=== PATIENT | female | born 1960 | race Caucasian/White ===

== ENCOUNTER 2018-01-18 20:29 | Inpatient (IN) | payer OTHER, SELFPAY ==
[2018-01-18] MEDS ORDERED: NA CHLORIDE 0.9% 3,000 ML ONE (20:51)
[2018-01-18 21:09] LABS: Absolute Lymphocytes (CBC) 1.3 K/uL (0.7-4.9); Absolute Monocytes 1.5 K/uL (0.1-1.3); Absolute Neutrophil 13.3 K/uL (1.8-8.0); Basophils % 0.2 % (0-1.3); Hematocrit 28.5 % (36.0-45.0); Lymphocytes % 8.2 % (15.3-44.8); MCH 25.4 pg (27.0-35.0); MCV 79.9 fL (80-100); MPV 8.2 fL (7.6-11.3); Monocytes % 9.3 % (3.3-12.3); RBC Red Blood Cell Count 3.57 M/uL (3.86-4.86)
[2018-01-18 21:18] LABS: Protime INR 1.16
[2018-01-18 21:20] LABS: Urine Blood TRACE (NEG); Urine Glucose NEGATIVE (NEG); Urine Protein 3+ (NEG); Urine Specific Gravity >1.030 (1.005-1.030)
[2018-01-18 21:25] LABS: ALT/SGPT 27 U/L (12-78); AST/SGOT 31 U/L (15-37); Albumin 3.2 g/dL (3.4-5.0); Alkaline Phosphatase 120 U/L (45-117); BUN Blood Urea Nitrogen 14 mg/dL (7-18); Bicarbonate 24 mmol/L (21-32); Bilirubin Direct 0.1 mg/dL (0-0.2); Bilirubin Total 0.4 mg/dL (0.2-1.0); Creatine Phosphokinase 42 U/L (26-192); Glucose Level 114 mg/dL (74-106); Lipase 35 U/L (73-393); Potassium 3.2 mmol/L (3.5-5.1); Protein, Total 7.2 g/dL (6.4-8.2); Sodium Level 138 mmol/L (136-145)
[2018-01-18 21:27] LABS: Urine Bacteria >50 /HPF (<20); Urine Culture Reflex Order REFLEXED
[2018-01-18] MEDS ORDERED: CEFEPIME 1 GM/100 ML BAG IV ONE (21:28)
[2018-01-18] MEDS ORDERED: VANCOMYCIN 1 GM/250 ML BAG ONE (21:28)
--- NOTE | 2018-01-18 21:35 | RAD REPORT ---
EXAM DESCRIPTION: RAD - Chest Single View - 01/18/2018 9:28 pm CLINICAL HISTORY: DYSPNEA Chest pain. COMPARISON: None FINDINGS: Portable technique limits examination quality. Mild linear opacities in the left mid lung likely represent subsegmental atelectasis. The lungs are o therwise clear. The heart is upper limit of normal in size. No displaced fractures. IMPRESSION: Linear opacities in the left lung probably represent subsegmental atelectasis.
[2018-01-18 21:56] LABS: Anisocytosis 1+; Blood Morphology Comment NOTED (NOT SEEN); Hypochromasia 1+; Platelet Estimate ADEQ; Urine White Blood Cell Casts OK
--- NOTE | 2018-01-18 22:09 | RAD REPORT ---
EXAM DESCRIPTION: CTAbdomen Pelvis W Contrast - 01/18/2018 9:55 pm CLINICAL HISTORY: Abdominal pain. iv only;Abd pain COMPARISON: Chest Single View dated 01/18/2018 TECHNIQUE: Biphasic CT imaging of the abdomen and pelvis was performed with 100 ml non-ionic IV cont rast. All CT scans are performed using dose optimization technique as appropriate and may include automated exposure control or mA/KV adjustment according to patient size. FINDINGS: The lung bases are clear.A moderate hiatal hernia is noted. The liver demonstrates no focal mass or biliary dilatation. Cholecystectomy clips noted. The spleen, pancreas and adrenal glands are normal. The right kidney appears normal. The left kidney appears enla rged and edematous. There is geographic area of diminished density noted inferior posterior pole. Thi s likely indicates pyelonephritis. No perinephric abscess. No bowel obstruction, free air, free fluid or abscess. The appendix is normal. No evidence of signi ficant lymphadenopathy. No suspicious bony findings. IMPRESSION: Left-sided pyelonephritis is suspected.
--- NOTE | 2018-01-18 22:38 | ER ---
Nurse's Notes [facility] Name: Teri Hinkle Age: 57 yrs Sex: Female : 1960 Arrival Date: 01/18/2018 Time: 20:30 Bed 3 Private MD: Diagnosis: Urosepsis;Acute tubulo-interstitial nephritis Presentation: 01/18 20:34 Presenting complaint: Patient states: low back pain with N/V x 4 days. Reports she fell aa1 and hurt her back and thought that was why she was in pain but upon EMS arrival pt found to be febrile and tachycardic. Reports temp DIALYSIS RN of 103.4 and was given Tylenol en route. Transition of care: patient was not received from another setting of care. Onset of symptoms was January 14, 2018. Risk Assessment: Do you want to hurt yourself or someone else? Patient reports no desire to harm self or others. Initial Sepsis Screen: Does the patient meet any 2 criteria? RR > 20 per min. Temp <36.0*C (96.8*F)) or > 38.3*C (100.4*F). HR > 90 bpm. Yes Does the patient have a suspected source of infection? No. Patient's initial sepsis screen is negative. Care prior to arrival: Medication(s) given: Tylenol, 1000 mg, zofran 4 mg. 20:34 Method Of Arrival: EMS: [facility] aa1 20:34 Acuity: PRISCILA 2 aa1 Historical: - Allergies: 20:39 PENICILLINS; aa1 - Home Meds: 20:39 clopidogrel 75 mg oral tab 1 tab once daily [Active]; nortriptyline 50 mg Oral cap 2 aa1 caps once daily [Active]; Celexa 20 mg Oral tab 1 tab once daily [Active]; ibuprofen 600 mg Oral tab as needed [Active]; - PMHx: 20:39 COPD; CHF; Depression; Hypertension; aa1 - PSHx: 20:39 Cholecystectomy; ; aa1 - Immunization history:: Flu vaccine is up to date. - Social history:: Smoking status: Patient/guardian denies using tobacco. - Ebola Screening: : Patient denies exposure to infectious person Patient denies travel to an Ebola-affected area in the 21 days before illness onset. Screenin:40 Abuse screen: Denies threats or abuse. Denies injuries from another. Nutritional aa1 screening: No deficits noted. Tuberculosis screening: No symptoms or risk factors identified. Fall Risk None identified. Assessment: 20:40 General: Appears in no apparent distress. comfortable, Behavior is calm, cooperative, aa1 appropriate for age. Pain: Complains of pain in lumbar area, left low back and right low back Pain currently is 8 out of 10 on a pain scale. Pain began suddenly, 3 days ago Is continuous. Neuro: Level of Consciousness is awake, alert, obeys commands, Oriented to person, place, time, situation, Moves all extremities. Full function Speech is normal. Cardiovascular: Heart tones S1 S2 present Rhythm is regular. Respiratory: Airway is patent Respiratory effort is even, unlabored, Respiratory pattern is tachypnea. GI: Abd is soft and non tender X 4 quads. Reports nausea, vomiting, Patient currently denies abdominal pain. : Reports pain in lower back Denies burning with urination, urinary frequency, urgency. EENT: No signs and/or symptoms were reported regarding the EENT system. Derm: Skin is intact, is healthy with good turgor, Skin is pink, warm \T\ dry. Musculoskeletal: Circulation, motion, and sensation intact. Capillary refill < 3 seconds. 21:45 Reassessment: Patient appears in no apparent distress at this time. Patient and/or aa1 family updated on plan of care and expected duration. Pain level reassessed. Patient is alert, oriented x 3, equal unlabored respirations, skin warm/dry/pink. Pt taken to CT. 22:30 Reassessment: Patient appears in no apparent distress at this time. Patient and/or aa1 family updated on plan of care and expected duration. Pain level reassessed. Patient is alert, oriented x 3, equal unlabored respirations, skin warm/dry/pink. Awaiting admission. 23:10 Reassessment: Patient appears in no apparent distress at this time. Patient and/or aa1 family updated on plan of care and expected duration. Pain level reassessed. Patient is alert, oriented x 3, equal unlabored respirations, skin warm/dry/pink. Awaiting bed assignment Patient states feeling better. 23:55 Reassessment: Patient appears in no apparent distress at this time. Patient is alert, aa1 oriented x 3, equal unlabored respirations, skin warm/dry/pink. Report given to Chani on 2nd floor. Vital Signs: 20:39 BP 96 / 49; Pulse 118; Resp 24; Temp 102.7(O); Pulse Ox 92% on R/A; Weight 102.06 kg; aa1 Height 5 ft. 2 in. (157.48 cm); Pain 8/10; 20:40 Pulse Ox 96% on 2 lpm NC; aa1 21:22 BP 115 / 65; Pulse 109; Resp 22; Pulse Ox 97% on 2 lpm NC; aa1 22:11 BP 122 / 71; Pulse 105; Resp 20; Temp 100.0(O); Pulse Ox 98% on R/A; Pain 8/10; aa1 23:11 BP 116 / 63; Pulse 103; Resp 20; Pulse Ox 97% on 2 lpm NC; Pain 6/10; aa1 23:45 BP 110 / 69; Pulse 100; Resp 20; Temp 98.8; Pulse Ox 97% on 2 lpm NC; Pain 5/10; aa1 20:39 Body Mass Index 41.15 (102.06 kg, 157.48 cm) aa1 ED Course: 20:30 Patient arrived in ED. rg2 20:30 Patient has correct armband on for positive identification. Placed in gown. Bed in low aa1 position. Call light in reach. laboratory monitor on. Pulse ox on. NIBP on. 20:32 Frank Urena PA is PHCP. jr8 20:32 Tee Cervantes MD is Attending Physician. jr8 20:34 Shira Garcia RN is Primary Nurse. aa1 20:35 First set of blood cultures drawn by ED staff. Inserted saline lock: 20 gauge in left aa1 hand, using aseptic technique. ,using aseptic technique. by Samina Vickers RN. 20:37 Triage completed. aa1 20:39 Arm band placed on right wrist. Patient placed in an exam room, on a stretcher. aa1 20:40 Oxygen administration via nasal cannula \T\ 2L/min. aa1 20:53 Initial lab(s) drawn, by me, sent to lab. cc 20:53 Second set of blood cultures drawn by me. cc 21:10 EKG done, by ED staff, reviewed by Tee Cervantes MD. aa1 21:16 Straight cath inserted, using sterile technique, 16 Fr. Specimen obtained. Returned aa1 samina urine. Patient tolerated well. 21:28 Chest Single View XRAY In Process Unspecified. EDMS 21:54 CT completed. Patient moved to CT via stretcher. Patient moved back from CT. bq 21:55 CT Abd/Pelvis - W/Contrast In Process Unspecified. EDMS 22:37 Noemi Ji MD is Hospitalizing Provider. jr8 23:55 No provider procedures requiring assistance completed. Patient admitted, IV remains in aa1 place. Administered Medications: 21:30 Drug: NS 0.9% (30 ml/kg) 30 ml/kg Route: IV; Rate: bolus; Site: left hand; aa1 23:55 Follow up: IV Status: Infusion continued upon admission aa1 21:40 Drug: Cefepime 1 grams Route: IVPB; Rate: 200 ml/hr; Infused Over: 30 mins; Site: left aa1 hand; 22:10 Follow up: IV Status: Completed infusion aa1 22:28 Follow up: IV Status: Completed infusion ak1 23:03 Drug: Zofran 4 mg Route: IVP; Site: right antecubital; aa1 23:55 Follow up: Response: No adverse reaction; Nausea is decreased aa1 23:05 Drug: fentaNYL (PF) 50 mcg Route: IVP; Site: right antecubital; aa1 23:55 Follow up: Response: No adverse reaction; Pain is decreased aa1 23:08 Drug: Potassium Chloride 40 mEq Route: PO; aa1 23:55 Follow up: Response: No adverse reaction aa1 23:09 Drug: vancoMYCIN 1 grams Route: IVPB; Infused Over: 2 hrs; Site: left hand; aa1 23:55 Follow up: IV Status: Infusion continued upon admission aa1 Point of Care Testing: Blood Glucose: 21:11 Blood Glucose: 113 mg/dL; aa1 Ranges: Outcome: 22:38 Decision to Hospitalize by Provider. jr8 23:55 Admitted to Tele accompanied by tech, via stretcher, room 216, with oxygen, with chart, aa1 Report called to Chani 23:55 Condition: stable 23:55 Instructed on the need for admit, Demonstrated understanding of instructions. 07 00:24 Patient left the ED. aa1 Signatures: Dispatcher [employer] EDMS Telma Naik2 Shira Garcia, RN RN aa1 Veronika Benavides [place] cc Roszak, Josh, PA PA jr8 Samina Vickers, RN RN ak1
--- NOTE | 2018-01-18 22:38 | EDPHYS ---
Physician Documentation [facility] Name: Teri Hinkle Age: 57 yrs Sex: Female : 1960 Arrival Date: 01/18/2018 Time: 20:30 Bed 3 Private MD: ED Physician Tee Cervantes HPI: 01/18 21:30 This 57 yrs old Female presents to ER via EMS with complaints of low back pain. N/V. jr8 21:30 Patient stated that she fell and hurt her back the other day. For the past few days has jr8 had back pain and now nausea and vomiting. Patient comes in with 103 fever. Onset: The symptoms/episode began/occurred gradually, 4 day(s) ago. Severity of symptoms: At their worst the symptoms were moderate in the emergency department the symptoms are unchanged. The patient has not experienced similar symptoms in the past. The patient has not recently seen a physician. Historical: - Allergies: 20:39 PENICILLINS; aa1 - Home Meds: 20:39 clopidogrel 75 mg oral tab 1 tab once daily [Active]; nortriptyline 50 mg Oral cap 2 aa1 caps once daily [Active]; Celexa 20 mg Oral tab 1 tab once daily [Active]; ibuprofen 600 mg Oral tab as needed [Active]; - PMHx: 20:39 COPD; CHF; Depression; Hypertension; aa1 - PSHx: 20:39 Cholecystectomy; ; aa1 - Immunization history:: Flu vaccine is up to date. - Social history:: Smoking status: Patient/guardian denies using tobacco. - Ebola Screening: : Patient denies exposure to infectious person Patient denies travel to an Ebola-affected area in the 21 days before illness onset. ROS: 21:30 Eyes: Negative for injury, pain, redness, and discharge, ENT: Negative for injury, jr8 pain, and discharge, Neck: Negative for injury, pain, and swelling, Cardiovascular: Negative for chest pain, palpitations, and edema, Respiratory: Negative for shortness of breath, cough, wheezing, and pleuritic chest pain, MS/Extremity: Negative for injury and deformity, Skin: Negative for injury, rash, and discoloration, Neuro: Negative for headache, weakness, numbness, tingling, and seizure. 21:30 Constitutional: Positive for fever. 21:30 Abdomen/GI: Positive for nausea and vomiting, Negative for abdominal pain, diarrhea, abdominal distension, anorexia, dysphagia, hematemesis, black/tarry stool, rectal pain, rectal bleeding, bowel incontinence, flatulence. 21:30 Back: Positive for pain at rest, pain with movement, of the low back area. Exam: 21:30 Eyes: Pupils equal round and reactive to light, extra-ocular motions intact. Lids and jr8 lashes normal. Conjunctiva and sclera are non-icteric and not injected. Cornea within normal limits. Periorbital areas with no swelling, redness, or edema. ENT: Nares patent. No nasal discharge, no septal abnormalities noted. Tympanic membranes are normal and external auditory canals are clear. Oropharynx with no redness, swelling, or masses, exudates, or evidence of obstruction, uvula midline. Mucous membranes moist. Neck: Trachea midline, no thyromegaly or masses palpated, and no cervical lymphadenopathy. Supple, full range of motion without nuchal rigidity, or vertebral point tenderness. No Meningismus. Cardiovascular: Sinus Tachycardia with a normal S1 and S2. No gallops, murmurs, or rubs. Normal PMI, no JVD. No pulse deficits. Respiratory: Lungs have equal breath sounds bilaterally, clear to auscultation and percussion. No rales, rhonchi or wheezes noted. No increased work of breathing, no retractions or nasal flaring. Abdomen/GI: Soft, non-tender, with normal bowel sounds. No distension or tympany. No guarding or rebound. No evidence of tenderness throughout. Skin: Warm, dry with normal turgor. Normal color with no rashes, no lesions, and no evidence of cellulitis. MS/ Extremity: Pulses equal, no cyanosis. Neurovascular intact. Full, normal range of motion. Neuro: Awake and alert, GCS 15, oriented to person, place, time, and situation. Cranial nerves II-XII grossly intact. Motor strength 5/5 in all extremities. Sensory grossly intact. Cerebellar exam normal. Normal gait. 21:30 Back: pain, that is moderate, of the lumbar area, left low back and right low back, ROM is painful, CVA tenderness, is absent, vertebral tenderness, is appreciated at L1, L2 and L3. Vital Signs: 20:39 BP 96 / 49; Pulse 118; Resp 24; Temp 102.7(O); Pulse Ox 92% on R/A; Weight 102.06 kg; aa1 Height 5 ft. 2 in. (157.48 cm); Pain 8/10; 20:40 Pulse Ox 96% on 2 lpm NC; aa1 21:22 BP 115 / 65; Pulse 109; Resp 22; Pulse Ox 97% on 2 lpm NC; aa1 22:11 BP 122 / 71; Pulse 105; Resp 20; Temp 100.0(O); Pulse Ox 98% on R/A; Pain 8/10; aa1 23:11 BP 116 / 63; Pulse 103; Resp 20; Pulse Ox 97% on 2 lpm NC; Pain 6/10; aa1 23:45 BP 110 / 69; Pulse 100; Resp 20; Temp 98.8; Pulse Ox 97% on 2 lpm NC; Pain 5/10; aa1 20:39 Body Mass Index 41.15 (102.06 kg, 157.48 cm) aa1 MDM: 20:32 Patient medically screened. jr8 22:28 Data reviewed: vital signs, nurses notes, lab test result(s), radiologic studies, CT jr8 scan, and as a result, I will admit patient. Data interpreted: Pulse oximetry: on room air is 98 %. Interpretation: normal. Counseling: I had a detailed discussion with the patient and/or guardian regarding: the historical points, exam findings, and any diagnostic results supporting the discharge/admit diagnosis, lab results, radiology results, the need for further work-up and treatment in the hospital. 22:37 ED course: Patient use to be a Dr. Fowler patient but has not seen him in several years. jr8 Dr. Fowler deferred to hospitalist. Dr. Ji accepted . 01/18 20:38 Order name: Urine Microscopic Only; Complete Time: 21:33 01/18 20:38 Order name: Basic Metabolic Panel; Complete Time: 21:33 01/18 20:38 Order name: Blood Culture Adult (2) 8 01/18 20:38 Order name: CBC with Diff; Complete Time: 21:57 01/18 20:38 Order name: CPK; Complete Time: 21:33 01/18 20:38 Order name: Lactate; Complete Time: 21:33 01/18 20:38 Order name: LFT's; Complete Time: 21:33 8 01/18 20:38 Order name: Lipase; Complete Time: 21:33 8 01/18 20:38 Order name: Procalcitonin; Complete Time: 21:49 8 01/18 20:38 Order name: Protime (+inr); Complete Time: 21:56 [facility] [place] 01/18 20:38 Order name: Troponin (emerg Dept Use Only); Complete Time: 21:33 [facility] [place] 01/18 21:11 Order name: CBC Smear Scan; Complete Time: 21:57 [facility] 01/18 21:16 Order name: Urine Dipstick--Ancillary (enter results); Complete Time: 21:22 [facility] 01/18 21:30 Order name: Urine Culture [facility] 01/18 20:38 Order name: Cath; Complete Time: 21:20 [facility] [place] 01/18 20:38 Order name: Chest Single View XRAY; Complete Time: 21:49 [facility] [place] 01/18 21:33 Order name: CT Abd/Pelvis - W/Contrast; Complete Time: 22:28 8 01/18 22:36 Order name: Lactate; Complete Time: 23:26 [facility] [place] 01/18 23:14 Order name: CONS Pharmacy Consult [facility] 01/18 23:14 Order name: Heart Healthy [facility] 01/18 23:14 Order name: CBC with Automated Diff [facility] 01/18 23:14 Order name: CBC with Automated Diff [facility] 01/18 23:14 Order name: Comprehensive Metabolic Panel [facility] 01/18 23:14 Order name: Comprehensive Metabolic Panel [facility] 01/18 20:38 Order name: Accucheck; Complete Time: 21:20 8 01/18 20:38 Order name: Cardiac monitoring; Complete Time: 20:44 8 01/18 20:38 Order name: EKG - Nurse/Tech; Complete Time: 21:20 [facility] [place] 01/18 20:38 Order name: IV Saline Lock - Large Bore; Complete Time: 21:20 [facility] [place] 01/18 20:38 Order name: Labs collected and sent; Complete Time: 21:20 [facility] [place] 01/18 20:38 Order name: O2 Per Protocol; Complete Time: 20:45 [facility] [place] 01/18 20:38 Order name: O2 Sat Monitoring; Complete Time: 20:45 [facility] [place] 01/18 20:38 Order name: Urine Dipstick-Ancillary (obtain specimen); Complete Time: 21:21 jr8 Administered Medications: 21:30 Drug: NS 0.9% (30 ml/kg) 30 ml/kg Route: IV; Rate: bolus; Site: left hand; aa1 23:55 Follow up: IV Status: Infusion continued upon admission aa1 21:40 Drug: Cefepime 1 grams Route: IVPB; Rate: 200 ml/hr; Infused Over: 30 mins; Site: left aa1 hand; 22:10 Follow up: IV Status: Completed infusion aa1 22:28 Follow up: IV Status: Completed infusion ak1 23:03 Drug: Zofran 4 mg Route: IVP; Site: right antecubital; aa1 23:55 Follow up: Response: No adverse reaction; Nausea is decreased aa1 23:05 Drug: fentaNYL (PF) 50 mcg Route: IVP; Site: right antecubital; aa1 23:55 Follow up: Response: No adverse reaction; Pain is decreased aa1 23:08 Drug: Potassium Chloride 40 mEq Route: PO; aa1 23:55 Follow up: Response: No adverse reaction aa1 23:09 Drug: vancoMYCIN 1 grams Route: IVPB; Infused Over: 2 hrs; Site: left hand; aa1 23:55 Follow up: IV Status: Infusion continued upon admission aa1 Point of Care Testing: Blood Glucose: 21:11 Blood Glucose: 113 mg/dL; aa1 Ranges: Critical Glucose Levels:Adult <50 mg/dl or >400 mg/dl <40 mg/dl or >180 mg/dl Disposition: 01/19 09:30 Co-signature as Attending Physician, Tee Cervantes MD I agree with the assessment and shaq plan of care. Disposition: 01/18/18 22:38 Hospitalization ordered by Noemi Ji for Inpatient Admission. Preliminary diagnosis are Urosepsis, Acute tubulo-interstitial nephritis. - Bed requested for Telemetry/MedSurg (Inpatient). - Status is Inpatient Admission. aa1 - Condition is Fair. - Problem is new. - Symptoms have improved. UTI on Admission? Yes Signatures: Dispatcher [employer] EDMS Telma Naik2 Shira Garcia RN RN aa1 Tee Cervantes MD MD cha Roszak, Josh, PA PA jr8 Brisa Vickers RN ak1 Corrections: (The following items were deleted from the chart) 01/18 23:23 22:38 Hospitalization Ordered by Noemi Ji MD for Inpatient Admission. Preliminary rg2 diagnosis is Urosepsis; Acute tubulo-interstitial nephritis. Bed requested for Telemetry/MedSurg (Inpatient). Status is Inpatient Admission. Condition is Fair. Problem is new. Symptoms have improved. UTI on Admission? Yes. jr8 01/19 00:24 01/18 23:23 01/18/2018 22:38 Hospitalization Ordered by Noemi Ji MD for Inpatient aa1 Admission. Preliminary diagnosis is Urosepsis; Acute tubulo-interstitial nephritis. Bed requested for Telemetry/MedSurg (Inpatient). Status is Inpatient Admission. Condition is Fair. Problem is new. Symptoms have improved. UTI on Admission? Yes. rg2
[2018-01-18] MEDS ORDERED: POTASSIUM CL SA 10 MEQ TAB PO ONE (22:58)
[2018-01-18] MEDS ORDERED: ONDANSETRON 4 MG/2 ML VIAL ONE (22:59)
[2018-01-18] MEDS ORDERED: FENTANYL CITR 100 MCG/2 ML ONE (22:59)
[2018-01-19 00:43] VITALS: BMI 40.8
[2018-01-19] MEDS: NA CHLORIDE 0.9% 1,000 ML IV SCH ×3 (01:26→23:01)
[2018-01-19] MEDS: MORPHINE 2 MG/ML SYR IV PRN ×5 (01:27→23:00)
[2018-01-19] MEDS: ONDANSETRON 4 MG/2 ML VIAL IV PRN ×3 (01:27→23:00)
[2018-01-19] MEDS ORDERED: DEXAMETHASONE 10 MG/ML VIAL IV ONE (03:36)
[2018-01-19] MEDS ORDERED: CYCLOBENZAPRINE 10 MG TAB PO ONE (03:36)
[2018-01-19] MEDS ORDERED: Morphine 2 MG/2 ML SYR IV ONE (03:36)
[2018-01-19] MEDS ORDERED: DEXAMETHASONE 4 MG/ML VIAL ONE (04:06)
[2018-01-19] MEDS ORDERED: CEFTRIAXONE/SWI 1gm 1 GM/10 ML SYR ONE (05:28)
[2018-01-19 05:55] LABS: Absolute Lymphocytes (CBC) 0.9 K/uL (0.7-4.9); Absolute Monocytes 1.2 K/uL (0.1-1.3); Absolute Neutrophil 9.3 K/uL (1.8-8.0); Basophils % 0.3 % (0-1.3); Hematocrit 25.7 % (36.0-45.0); Lymphocytes % 7.9 % (15.3-44.8); MCH 25.2 pg (27.0-35.0); MCV 80.8 fL (80-100); MPV 8.4 fL (7.6-11.3); Monocytes % 10.5 % (3.3-12.3); RBC Red Blood Cell Count 3.19 M/uL (3.86-4.86)
[2018-01-19] MEDS ORDERED: CEFTRIAXONE 1 GM/NS 50 ML 1 GM/50 ML BAG IV SCH (06:00)
[2018-01-19 06:14] LABS: ALT/SGPT 22 U/L (12-78); AST/SGOT 26 U/L (15-37); Albumin 2.6 g/dL (3.4-5.0); Alkaline Phosphatase 104 U/L (45-117); BUN Blood Urea Nitrogen 11 mg/dL (7-18); Bicarbonate 23 mmol/L (21-32); Bilirubin Total 0.5 mg/dL (0.2-1.0); Glucose Level 161 mg/dL (74-106); Potassium 3.2 mmol/L (3.5-5.1); Sodium Level 139 mmol/L (136-145)
[2018-01-19] MEDS ORDERED: LORazepam 2 MG/ML VIAL IV ONE (07:01)
--- NOTE | 2018-01-19 07:16 | P.HP ---
Certification for Inpatient Patient admitted to: Inpatient With expected LOS: >2 Midnights Patient will require the following post-hospital care: None Practitioner: I am a practitioner with admitting privileges, knowledge of patient current condition, hospital course, and medical plan of care. Services: Services provided to patient in accordance with Admission requirements found in Title 42 Section 412.3 of the Code of Federal Regulations Patient History Date of Service: 01/18/18 Reason for admission: Fever, pyelonephritis History of Present Illness: Patient is a 57yo who was admitted to the hospital with fever and flank tenderness. Patient has been having pain since she fell at [employer]. Patient's pain has been on the lower spine and radiates up the back. Patient apparently has been having fever as well as shakes and chills. She came into the hospital for further evaluation. In the emergency room, her workup revealed pyelonephritis with a urinary tract infection. Patient was started on IV antibiotics and IV hydration. On further examination patient does have some point tenderness of the lumbar spine. Will go ahead and get further imaging studies with an MRI to further evaluate. Monitor her closely over the next 48- 72 hr and see if she feels better after treatment with the antibiotics. Await culture and sensitivity results as well. Allergies Penicillins Adverse Reaction (Mild, Verified 01/19/18 01:25) Itching/Hives/Rash - Past Medical/Surgical History Has patient received pneumonia vaccine in the past: Yes Diabetic: No -: COPD -: CHF -: Depression -: HTN -: Cholecystectomy -: - Family History Father History Unknown: Yes Mother History Unknown: Yes - Social History Smoking Status: Former smoker Alcohol use: No CD- Drugs: No Caffeine use: Yes Place of Residence: Home Review of Systems 10-point ROS is otherwise unremarkable Physical Examination - Vital Signs Temperature: 99.3 F Blood Pressure: 130/58 Pulse: 107 Respirations: 20 Pulse Ox (%): 98 - Physical Exam General: Alert, In no apparent distress, Oriented x3 HEENT: Atraumatic, PERRLA, Mucous membr. moist/pink, EOMI, Sclerae nonicteric Neck: Supple, 2+ carotid pulse no bruit, No LAD, Without JVD or thyroid abnormality Respiratory: Clear to auscultation bilaterally, Normal air movement Cardiovascular: Regular rate/rhythm, Normal S1 S2, No murmurs Gastrointestinal: Normal bowel sounds, Soft and benign, Non-distended, No tenderness Musculoskeletal: No clubbing, No swelling, No tenderness Integumentary: No rashes Neurological: Normal gait, Normal speech, Normal strength at 5/5 x4 extr, Normal tone, Sensation intact, Cranial nerves 3-12 intact, Normal affect Lymphatics: No axilla or inguinal lymphadenopathy - Studies Laboratory Data (last 24 hrs) 01/18/18 20:53: PT 13.7 H, INR 1.16 01/18/18 20:53: WBC 16.1 H, Hgb 9.1 L, Hct 28.5 L, Plt Count 271 01/18/18 20:53: Sodium 138, Potassium 3.2 L, BUN 14, Creatinine 0.60, Glucose 114 H, Total Bilirubin 0.4, AST 31, ALT 27, Alkaline Phosphatase 120 H, Lipase 35 L Assessment & Plan - Problems (Diagnosis) (1) Status post fall Current Visit: Yes Status: Acute (2) Back pain at L4-L5 level Current Visit: Yes Status: Acute (3) Intractable nausea and vomiting Current Visit: Yes Status: Acute (4) Acute pyelonephritis Onset Date: 01/19/18 Current Visit: Yes Status: Acute - Plan Plan: 1. Continue with IV hydration 2. Continue with IV antibiotics 3. Continue with pain control 4. NPO 5. MRI of the lumbar spine 6. Await culture and sensitivity results 7. GI and DVT prophylaxis Discharge Plan: Home Plan to discharge in: Greater than 2 days - Advance Directives Does patient have a Living Will: No Does patient have a Durable POA for Healthcare: No - Code Status/Comfort Care Code Status Assessed: Yes Code Status: Full Code Critical Care: No Time Spent Managing PTS Care (In Minutes): 50
--- NOTE | 2018-01-19 09:11 | EKG ---
Test Date: 2018-01-18 Test Time: 21:00:44 [employer]: CALI MEASUREMENT RESULTS: Intervals: Rate: 113 MD: 132 QRSD: 90 QT: 324 QTc: 444 [place]: P: 58 MD: 132 QRS: 41 T: 29 INTERPRETIVE STATEMENTS: Sinus tachycardia Possible Left atrial enlargement Borderline ECG No previous ECG available for comparison Electronically Signed On 01-19-18 09:10:11 CDT by Kyle Romano
[2018-01-19] MEDS: METOPROLOL TAR 25 MG TAB PO SCH ×2 (09:20→20:36)
--- NOTE | 2018-01-19 10:08 | RAD REPORT ---
EXAM DESCRIPTION: MRI - Lumbar Spine Wo Con - 01/19/2018 8:54 am CLINICAL HISTORY: Back injury status post fall. Radiculopathy. COMPARISON: None. TECHNIQUE: Sagittal T1, T2 and STIR weighted sequences were obtained. Axial T1 and T2 sequences were obtained through the lumbar disc levels. FINDINGS: A small disc bulge is present at L1-2 minimally encroaching upon the thecal sac. The neura l foramina are patent. L2-3, L3-4, L4-5 and L5-S1 are unremarkable. No significant abnormal signal within the bones is noted. IMPRESSION: Mild spondylosis L1-2
--- NOTE | 2018-01-19 15:46 | PN ---
Date of Progress Note: 01/19/2018 Subjective: The patient seen and examined, chart reviewed, and case discussed with RN. The patient did not complain of any acute pain. Review of Systems: Negative except as above. Medications: List reviewed. Objective: Vital Signs: Temperature 99.4, heart rate 94, blood pressure 107/58, respirations 18, an d O2 91% on room air. General: Awake, alert, oriented x3, in mild distress. Morbidly obese female, BMI 40. CV: S1, S2. No murmurs. Peripheral pulses present. Respiratory: Clear to auscultation bilaterally. No wheezing. Gastrointestinal: Abdomen is soft, nontender, nondistended. Positive bowel sounds. Extremities: No clubbing, cyanosis, or edema. Neurologic: Nonfocal. Laboratory Data: Sodium 139, potassium 3.2, chloride 109, CO2 23, BUN 11, creatinine 0.6, glucose 16 1, lactic acid 0.9, and calcium 7.9. WBC 11.5, H and H 8 and 25.7, and platelets 234. Urine culture shows 4+ gram-negative rods. Blood cultures pending. Assessment And Plan: An 57-year-old female with; 1.Status post fall. 2.Back pain, L4-L5 level. MRI spine did not show any acute fracture. Does show some spondylosis at L1-L2. 3.Acute pyelonephritis secondary to gram-negative rods. We will continue with IV antibiotics. Foll ow up on culture ID and sensitivity. 4.Intractable nausea and vomiting, improved. 5.Morbid obesity, body mass index of 40.9. 6.Chronic obstructive pulmonary disease, chronic bronchitis. 7.Chronic congestive heart failure, unknown ejection fraction. 8.Major depressive disorder. 9.Essential hypertension. Plan: Continue IV antibiotics. The patient still hypertensive, had fever 102 last night. Pain cont rol. SA/MODL Voice ID: [id number] Report ID: [id number]
[2018-01-19 21:35] LABS: Hematocrit 24.8 % (36.0-45.0)
[2018-01-20] MEDS: MORPHINE 2 MG/ML SYR IV PRN ×3 (03:11→11:37)
[2018-01-20] MEDS: ONDANSETRON 4 MG/2 ML VIAL IV PRN ×5 (03:11→19:46)
[2018-01-20] MEDS: CEFTRIAXONE/SWI 1gm 1 GM/10 ML SYR IV SCH (05:25)
[2018-01-20 05:57] LABS: Absolute Lymphocytes (CBC) 1.6 K/uL (0.7-4.9); Absolute Monocytes 1.2 K/uL (0.1-1.3); Absolute Neutrophil 7.2 K/uL (1.8-8.0); Basophils % 0.3 % (0-1.3); Eosinophils % 0.1 % (0-4.4); Lymphocytes % 16.2 % (15.3-44.8); MCH 26.1 pg (27.0-35.0); MCV 81.2 fL (80-100); MPV 9.2 fL (7.6-11.3); Monocytes % 12.2 % (3.3-12.3); RBC Red Blood Cell Count 2.96 M/uL (3.86-4.86)
[2018-01-20 06:01] LABS: BUN Blood Urea Nitrogen 13 mg/dL (7-18); Bicarbonate 25 mmol/L (21-32); Glucose Level 123 mg/dL (74-106); Potassium 3.7 mmol/L (3.5-5.1); Sodium Level 141 mmol/L (136-145)
[2018-01-20] MEDS: METOPROLOL TAR 25 MG TAB PO SCH ×2 (08:32→20:03)
[2018-01-20 12:22] LABS: Hematocrit 25.5 % (36.0-45.0)
[2018-01-20] MEDS: VANCOMYCIN 1.75 GM in NA CHLORIDE 0.9% 500 ML IVPB SCH (14:19)
[2018-01-20] MEDS: NA CHLORIDE 0.9% 1,000 ML IV SCH ×2 (15:45→19:50)
[2018-01-20] MEDS: CYCLOBENZAPRINE 10 MG TAB PO PRN (15:52)
[2018-01-20] MEDS: MORPHINE 4 MG/ML SYR IV PRN ×2 (15:53→19:46)
--- NOTE | 2018-01-20 17:29 | PN ---
Date of Progress Note: 01/20/2018 Subjective: The patient seen and examined, chart reviewed, and case discussed with RN. The patient states that she is having some blood in her stool. This morning, her hemoglobin dropped below 8. She also reports some pain in her back , asking for Flexeril along with her pain medication and anxiety medication. The patient does report some hemorrhoids. Review of Systems: Negative except as above. Medications: Reviewed. Physical Examination: Vital Signs: Temperature 98.1, heart rate 81, blood pressure 114/64, respirations 18, and O2 93% on room air. General: Awake, alert, oriented x3, in some mild distress, appears older than stated age. Morbidly obese female. BMI 40.9. CV: S1, S2. No murmurs. Regular rate and rhythm. Peripheral pulses present. Respiratory: Clear to auscultation bilaterally. No wheezing. No stridor. No use of accessory muscles Gastrointestinal: Abdomen is soft, nontender, nondistended. Positive bowel sounds. Extremities: No clubbing, cyanosis, or edema. Neurologic: Nonfocal. Musculoskeletal: No tenderness on the lumbar spine. Laboratory Data: Sodium 141, potassium 3.7, chloride 108, CO2 25, BUN 13, creatinine 0.6, glucose 123, and calcium 8. WBC 10.2, H and H 7.7 and 24, platelets 241. Repeat H and H 8 and 25.5. Urine culture growing E coli, sensitive to Rocephin. Blood cultures, gram-positive cocci in pairs and chains and gram-negative rods from the other bottle. Assessment And Plan: A 57-year-old female with; 1. Status post fall. 2. Back pain, L4-L5 level. MRI spine shows no acute fracture. We will adjust medications. We will add Flexeril for muscle spasms. 3. Acute pyelonephritis secondary to Escherichia coli. Sensitivities noted. We will continue with Rocephin. 4. gram-positive cocci in blood culture. bacteremia. Will add gram-positive coverage and follow up on ID and sensitivity. 5. Morbid obesity, body mass index 40.9. 6. Chronic obstructive pulmonary disease, chronic bronchitis, stable. We will continue with albuterol p.r.n. 7. Chronic congestive heart failure. Unknown EF, stable. 8. Major depressive disorder. 9. Essential hypertension, stable, on home medications. 10. Gastrointestinal and deep venous thrombosis Prophylaxis addressed. The patient now afebrile. We will follow up on blood culture. If shows gram- positive bacteria, will need echocardiogram. 11. Gastrointestinal bleed. The patient does have history of hemorrhoids and colonic polyps. Recently had EGD about 1 month ago, was not found to have any ulcers. The patient does describe some gastritis type findings. Colonoscopy was done 6 months ago at [facility] and the patient had multiple polypectomies. However, 1 polyp was unable to be removed. We will consult GI. Obtain stool occult blood test and follow up with GI. /NIRAV Voice ID: [id number] Report ID: [id number] REDD
[2018-01-20] MEDS ORDERED: ACETAMINOPHEN 500 MG TAB PO PRN (23:29)
[2018-01-21] MEDS: CYCLOBENZAPRINE 10 MG TAB PO PRN ×3 (00:14→22:07)
[2018-01-21] MEDS: MORPHINE 4 MG/ML SYR IV PRN ×6 (01:06→23:16)
[2018-01-21] MEDS: ONDANSETRON 4 MG/2 ML VIAL IV PRN ×6 (01:06→23:15)
[2018-01-21] MEDS: VANCOMYCIN 1.75 GM in NA CHLORIDE 0.9% 500 ML IVPB SCH ×2 (01:12→13:04)
[2018-01-21] MEDS: CEFTRIAXONE/SWI 1gm 1 GM/10 ML SYR IV SCH (05:00)
[2018-01-21] MEDS: PANTOPRAZOLE 40MG TABLET PO SCH (05:46)
[2018-01-21 06:40] LABS: ALT/SGPT 20 U/L (12-78); AST/SGOT 20 U/L (15-37); Albumin 2.4 g/dL (3.4-5.0); Alkaline Phosphatase 78 U/L (45-117); BUN Blood Urea Nitrogen 10 mg/dL (7-18); Bicarbonate 27 mmol/L (21-32); Bilirubin Total 0.2 mg/dL (0.2-1.0); Glucose Level 94 mg/dL (74-106); Potassium 4.1 mmol/L (3.5-5.1); Protein, Total 5.9 g/dL (6.4-8.2); Sodium Level 144 mmol/L (136-145)
[2018-01-21 07:02] LABS: Absolute Lymphocytes (CBC) 1.8 K/uL (0.7-4.9); Absolute Monocytes 1.1 K/uL (0.1-1.3); Absolute Neutrophil 3.8 K/uL (1.8-8.0); Basophils % 0.5 % (0-1.3); Eosinophils % 0.2 % (0-4.4); Hematocrit 22.4 % (36.0-45.0); Lymphocytes % 26.3 % (15.3-44.8); MCH 26.6 pg (27.0-35.0); MCV 80.5 fL (80-100); MPV 8.4 fL (7.6-11.3); Monocytes % 16.3 % (3.3-12.3); RBC Red Blood Cell Count 2.79 M/uL (3.86-4.86)
[2018-01-21] MEDS: METOPROLOL TAR 25 MG TAB PO SCH ×2 (09:04→22:09)
[2018-01-21 12:19] LABS: Hematocrit 25.7 % (36.0-45.0)
--- NOTE | 2018-01-21 15:27 | PN ---
Date of Progress Note: 01/21/2018 Subjective: The patient seen and examined, chart reviewed, and case discussed with RN. The patient denies any blood in stool. The patient did have fever of 100.1 overnight. Review of Systems: Negative except as above. Medications: List is reviewed. Objective: Vital Signs: Temperature 98.3, T-max 100.1, pulse 87, respirations 18, blood pressure 10 8/53, O2 97% on 2 L via nasal cannula. General: Awake, alert, oriented x3. Appears older than stated age, ill-appearing female, morbidly o bese, BMI of 40. CV: S1, S2. No murmurs. Regular rate and rhythm. Peripheral pulses present. Respiratory: Clear to auscultation bilaterally. No wheezing. No stridor. Gastrointestinal: Abdomen is soft, nontender, nondistended. Positive bowel sounds. Extremities: No clubbing, cyanosis, edema. Neurologic: Nonfocal. Laboratory Data: Sodium 144, potassium 4.1, chloride 111, CO2 27, BUN 10, creatinine 0.6, glucose 94 , and calcium 8.1. WBC 6.7, H and H 7.4, 22.4, platelets 261. Urine culture growing E coli. Blood culture growing E coli and 2 bottles also showing gram-positive cocci in pairs and chains. Positive presumptive strep pneumo. Assessment And Plan: A 57-year-old female with; 1.Acute pyelonephritis secondary to Escherichia coli. Continue Rocephin. 2.Gram-positive bacteremia. Blood culture presumptively growing Escherichia coli and Streptococcus pneumoniae. There is some discrepancy with the blood cultures. I spoke with the microbiology lab an d at this time, it seems that 1 or the other may be a contaminant since urine cultures are growing Es cherichia coli , likely Escherichia coli is in the blood. However, we will treat prophylactically wi th broad-spectrum antibiotics and we will repeat blood cultures. Unfortunately, ID is not available for consultation. 3.Back pain, L4-L5 level. Continue symptomatic treatment with antispasmodics and pain medication. 4.Status post fall. Continue PT. 5.Morbid obesity, body mass index 40.9. 6.Chronic obstructive pulmonary disease, chronic bronchitis, stable. Albuterol. 7.Congestive heart failure, unknown ejection fraction, compensated. Continue fluid restriction and 2 g sodium diet. 8.Major depressive disorder, stable. 9.Essential hypertension, stable. 10.Gastrointestinal bleed, likely secondary to hemorrhoids. The patient did have workup done recent ly at [facility]. GI has been consulted. We will continue to monitor her H and H. 11.Acute blood loss anemia. H and H dropped again today. We will repeat H and H at noon and transf use as needed. 12.Gastrointestinal and deep venous thrombosis prophylaxis with PPI and SCDs. No chemical anticoagu lation due to bleed. /NIRAV Voice ID: [id number] Report ID: [id number]
--- NOTE | 2018-01-21 17:54 | CON ---
Date of Consultation: 01/20/2018 A 57-year-old female, Dr. Valencia. Reason For Consultation: Anemia, abdominal pain. History Of Present Illness: Ms. Hinkle is a 57-year-old female with past history of colon polyposis. She came to the hospital after history of fall and developed UTI. She has been treated accordingly, however, blood test shows that she is anemic. The patient denies any hematemesis, melena, hematochezia, odynophagia, dysphagia. She states that sh derrek is still having difficulty of ambulation. She did have intermittent history of iron deficiency ane vaughn in the past. Abdominal pain is vague, generally located all over the abdomen, does not radiate a nywhere else. She does not know of any exacerbating or alleviating factor. At this time, the pain i ntensity is 7/10. Denies any fever chills. Past Medical History: Obesity, hypertension, diabetes, anemia intermittently. Past Surgical History: Unknown. Family History: Denies any gastrointestinal malignancy in the family. Social History: Positive alcohol. Positive tobacco. Psychiatric History: None. Allergies: REVIEWED IN THE CHART. Medications: Reviewed in the chart. Review of Systems: General: No change of appetite. No recent weight loss, weight gain. No fever or chills. GI: As elaborated above. Hepatologic: Denies any history of jaundice, hepatitis, any other liver issues. Pulmonary: Occasional shortness of breath, however, at this time no shortness of breath, cough, or e xpectoration. Cardiac: No palpitation, no heart murmur. No orthopnea or dyspnea. Genitourinary: No active complaint. Musculoskeletal: as elaborated above Neuropsychiatric: None. Neuroendocrine: None. Physical Examination: General: Young female, at this time in mild amount of distress. Hemodynamic and respiratory profile within normal range. HEENT: Atraumatic, normocephalic. Oropharynx is clear. Neck: Supple. No lymphadenopathy. Poor dentition noted. Neck: Supple. Trachea central in position. No bitemporal wasting. Chest: Clear to auscultation and percussion. Cardiovascular: Normal S1, S2. No S3, no S4. Abdomen: Obese, soft. Deep palpation reveals generalized, but nonspecific tenderness. Bowel sounds are excellent. Hepatomegaly, splenomegaly cannot be appreciated so as the ascites, however, no rebo und tenderness. Neurologic: Alert and oriented x3. Intact memory, mentation, and judgment. Can move all 4 extremit ies without any focal finding. Dermatologic: Upper and lower extremities normal, symmetrical. No symmetric wasting. Diagnostic Data: Reviewed and analyzed. Hemoglobin and hematocrit 9.1 and 28 respectively. MCV is 79. Platelet count is adequate. Electrolyte profile is more or less normal. LFTs are normal. Impression, Plan, Recommendations: Ms. Hinkle is a 57-year-old female with history of falls, numbness rule out neurological issue, abdominal pain. The etiology of her abdominal pain is not quite clear. She also has obesity. At this time, her anemia history appears to be chronic, however, the pattern feeds iron-deficient anemia. Do iron workup. She will probably need an upper and lower GI endoscop y due to above. However given her acute situation and acute back pain at this time and history of fa ll, it will be done on an outpatient basis. For the time being, treat her symptomatically. She may benefit from an oral PPI therapy. I have had a long discussion with her regarding the indications, contraindications, possible complica tions, alternatives of GI endoscopic workup and discussion of complications included, but not limited to the possibility of bleeding, perforation, tear, infection, sepsis, need for surgery, need for blood transfusion. She has good understanding. She is agreeable. STARLA/NIRAV Voice ID: [id number] Report ID: [id number]
[2018-01-21] MEDS: NA CHLORIDE 0.9% 1,000 ML IV SCH (18:02)
[2018-01-21] MEDS ORDERED: NORTRIPTYLINE HCL 25 MG CAP PO SCH (21:00)
[2018-01-22] MEDS: VANCOMYCIN 1.75 GM in NA CHLORIDE 0.9% 500 ML IVPB SCH ×2 (02:09→15:18)
[2018-01-22] MEDS: MORPHINE 4 MG/ML SYR IV PRN ×2 (03:43→09:17)
[2018-01-22] MEDS: ONDANSETRON 4 MG/2 ML VIAL IV PRN ×2 (03:43→09:17)
[2018-01-22 05:37] LABS: Absolute Lymphocytes (CBC) 1.9 K/uL (0.7-4.9); Absolute Neutrophil 3.1 K/uL (1.8-8.0); Basophils % 0.6 % (0-1.3); Eosinophils % 0.3 % (0-4.4); Hematocrit 21.8 % (36.0-45.0); Lymphocytes % 31.2 % (15.3-44.8); MCH 26.5 pg (27.0-35.0); MCV 80.4 fL (80-100); MPV 8.4 fL (7.6-11.3); RBC Red Blood Cell Count 2.71 M/uL (3.86-4.86)
[2018-01-22 05:46] LABS: ALT/SGPT 19 U/L (12-78); AST/SGOT 19 U/L (15-37); Albumin 2.5 g/dL (3.4-5.0); Alkaline Phosphatase 78 U/L (45-117); BUN Blood Urea Nitrogen 6 mg/dL (7-18); Bicarbonate 28 mmol/L (21-32); Bilirubin Total 0.3 mg/dL (0.2-1.0); Glucose Level 83 mg/dL (74-106); Potassium 3.7 mmol/L (3.5-5.1); Protein, Total 5.9 g/dL (6.4-8.2); Sodium Level 142 mmol/L (136-145)
[2018-01-22] MEDS: PANTOPRAZOLE 40MG TABLET PO SCH (06:06)
[2018-01-22] MEDS: CEFTRIAXONE/SWI 1gm 1 GM/10 ML SYR IV SCH (06:06)
[2018-01-22 07:25] LABS: Hematocrit 22.7 % (36.0-45.0)
[2018-01-22] MEDS ORDERED: CITALOPRAM 10 MG TABLET PO SCH (09:00)
[2018-01-22] MEDS ORDERED: FUROSEMIDE 20 MG TABLET PO SCH (09:00)
[2018-01-22 09:04] VITALS: O2SAT 95
[2018-01-22] MEDS: NA CHLORIDE 0.9% 1,000 ML IV SCH (09:09)
[2018-01-22] MEDS: CYCLOBENZAPRINE 10 MG TAB PO PRN (09:16)
[2018-01-22] MEDS: METOPROLOL TAR 25 MG TAB PO SCH (09:17)
[2018-01-22 12:39] LABS: Hematocrit 24.1 % (36.0-45.0)
[2018-01-22 12:44] LABS: Ferritin 23.6 ng/mL (8-388)
[2018-01-22] MEDS ORDERED: HYDROCODONE/APAP 10/325 TAB PO ONE (15:00)
--- NOTE | 2018-01-22 15:21 | ECHO ---
HEIGHT: 5 ft 2 in WEIGHT: 223 lb 6.4 oz DATE OF STUDY: 01/22/[address]: Rolanda Valencia MD 2-DIMENSIONAL: YES M.MODE: YES DOPPLER: YES COLOR FLOW: YES TDS: PORTABLE: DEFINITY: BUBBLE STUDY: DIAGNOSIS: BACTERMIA CARDIAC HISTORY: CATHERIZATION: NO SURGERY: NO PROSTHETIC VALVE: NO PACEMAKER: NO MEASUREMENTS (cm) DIASTOLIC (NORMALS) SYSTOLIC (NORMALS) IVSd 1.2 (0.6-1.2) LA Diam 4.0 (1.9-4.0) LVEF 52% LVIDd 4.8 (3.5-5.7) LVIDs 3.5 (2.0-3.5) %FS 27% LVPWd 1.4 (0.6-1.2) Ao Diam 2.4 (2.0-3.7) 2 DIMENSIONAL ASSESSMENT: RIGHT ATRIUM: NORMAL LEFT ATRIUM: NORMAL RIGHT VENTRICLE: NORMAL LEFT VENTRICLE: NORMAL TRICUSPID VALVE: NORMAL MITRAL VALVE: NORMAL PULMONIC VALVE: NORMAL AORTIC VALVE: NORMAL PERICARDIAL EFFUSION: NONE AORTIC ROOT: NORMAL LEFT VENTRICULAR WALL MOTION: NORMAL DOPPLER/COLOR FLOW: NORMAL COMMENTS: NORMAL 2-DIMENSIONAL ECHOCARDIOGRAM WITH DOPPLER. NO WALL MOTION ABNORMALITY. NO VEGETATION. TECHNOLOGIST: JOSELYN CARMONA
[2018-01-22 16:53] VITALS: BP 137/81; TEMP 99.2
--- NOTE | 2018-01-22 19:19 | DS ---
Date of Discharge: 01/22/2018 Consultants: Humble Sanchez M.D. with GI. Admitting Diagnoses: 1.Status post fall. 2.Back pain, L4-L5 level. 3.Intractable nausea, vomiting. 4.Abdominal pain. 5.Acute pyelonephritis. Discharge Diagnoses: 1.Acute pyelonephritis secondary to Escherichia coli. 2.Bacteremia secondary to Streptococcus pneumoniae. 3.Back pain, L4-L5 level. No fractures seen on imaging. 4.Status post fall. 5.Morbid obesity. Body mass index of 40.9. 6.Chronic obstructive pulmonary disease, chronic bronchitis, stable. 7.Congestive heart failure, unknown EF. Compensated. 8.Major depressive disorder, stable. 9.Essential hypertension. 10.Gastrointestinal bleed, likely secondary to hemorrhoids. 11.Acute blood loss anemia along with iron deficiency anemia. The patient did not produce a stool s ample. Hospital Course: The patient is a 57-year-old female came in with fever and flank tenderness. She w as found to have pyelonephritis. She was started on IV antibiotics and IV hydration. She also had a fall recently and had some point tenderness of the lumbar spine, which was evaluated with imaging st benavidez. Lumbar spine MRI showed mild spondylosis at L1-[address] scan of the abdomen and pelvis show ed left-sided pyelonephritis, however, no evidence of perinephric abscess. The patient also had some drop in her hemoglobin levels and was seen by GI, who did not recommend inpatient colonoscopy or oth er scope. She did complain of some bright red blood per rectum, however, she does have hemorrhoids. Her iron studies showed severe iron deficiency anemia. The patient was started on iron supplements. The patient's urine culture grew out E coli. Her blood cultures also grew out E coli as well as st rep pneumo. Therefore, echocardiogram was ordered to rule out any vegetation. The patient's blood c ulture and urine cultures were sensitive to multiple drugs. Therefore, the patient will be switched to p.o. antibiotics. ID consultation was not available. The patient was then tolerating her diet. Her pain had resolved both in her abdomen and her back. The patient will need conservative treatment for her back pain. She will need to follow up with GI for C-scope. Stool sample was ordered to [facility] for Hemoccult. However, the patient did not produce a sample. The patient was then afebrile. He r vital signs were stable. Her hemoglobin was also stable. She did not require any transfusion, lik jemal has some dilutional anemia along with severe iron deficiency. The patient started on p.o. iron. The patient has been discharged after being cleared by GI standpoint. Medications: As per medication reconciliation list. Followup: Follow up with primary care physician in 2-3 days. Follow up with GI, Dr. Sanchez in 2 weeks . Return to ER for worsening condition. Diet: Heart healthy. Activity: As tolerated. The patient will need repeat blood cultures once antibiotics are completed. The patient will follow up with her PCP for repeat blood cultures. Physical Examination: General: Awake, alert, oriented, no acute distress CV: S1, S2. No murmurs. Respiratory: Clear to auscultation bilaterally. No wheezing. Gastrointestinal: Abdomen is soft, nontender, nondistended. Positive bowel sounds. Extremities: No clubbing, cyanosis, edema. Neurologic: Nonfocal. Total time spent discharging the patient was 41 minutes. CIELO Voice ID: [id number] Report ID: [id number]
== END 2018-01-22 18:17 | disposition home or self-care (01) | DRG 690 ==
LOC: ER 20:29 → 2ND 22:39
PROVIDERS: ADMIT Hospitalist; ATTEND Family Medicine
DX: N10 Acute pyelonephritis (principal); Z68.41 Body mass index [BMI] 40.0-44.9, adult; D62 Acute posthemorrhagic anemia; B96.20 Unspecified Escherichia coli [E. coli] as the cause of diseases classified elsewhere; B95.3 Streptococcus pneumoniae as the cause of diseases classified elsewhere; M54.5 Low back pain; E66.01 Morbid (severe) obesity due to excess calories; I11.0 Hypertensive heart disease with heart failure; I50.9 Heart failure, unspecified; F32.9 Major depressive disorder, single episode, unspecified; J42 Unspecified chronic bronchitis; K64.9 Unspecified hemorrhoids; W19.XXXA Unspecified fall, initial encounter; Z88.0 Allergy status to penicillin; Z87.891 Personal history of nicotine dependence; Z79.02 Long term (current) use of antithrombotics/antiplatelets; Y92.524 Gas station as the place of occurrence of the external cause
CPT/HCPCS: 36415; 51702; 71045; 72148; 74177; 80048; 80053; 80076; 80202; 81003; 81015; 82550; 82728; 82962; 83540; 83605; 83690; 84145; 84466; 84484; 85014; 85018; 85025; 85610; 87040; 87077; 87086; 87088; 87186; 87205; 93005; 93306; 96365; 96367; 96375; 99285; J0692; J0696; J1100; J2270; J2405; J3010; J3370; J7030; Q9967

== ENCOUNTER 2018-02-09 17:00 | Inpatient (IN) | payer SELFPAY ==
--- OUTSIDE RECORDS SUMMARY | 2018-02-09 17:02 | XMS REPORT ---
:1960 [facility] Address [address] [place] [id number] Care Team Providers Name Role Phone AMANDA VO Unavailable Unavailable Problems This patient has no known problems. Allergies, Adverse Reactions, Alerts This patient has no known allergies or adverse reactions. Medications This patient has no known medications. Results Test Description Test Time Test Comments Text Results Atomic Results Result Comments Chemistry 2017-09-28 22:30:00 Test Item Value Reference Range Comments Chemistry (test Less than 0.010 < 0.028 Reference code=TROPI-T) ng/mL Range 0.00 - 0.028 ng/mL Negative 0.029 - 0.29 ng/mL Indeterminate Greater or Equal to 0.3 ng/mL Strongly suggests TX Patient not in room - return [id number] 19:13:00 Test Item Value Reference Range Comments Chemistry (test 0.5 ng/mL 0-6.6 code=CKMBM-T) Chemistry (test Less than 0.010 < 0.028 code=TROPI-T) ng/mL Reference Range 0.00 - 0.028 ng/mL Negative 0.029 - 0.29 ng/mL Indeterminate Greater or Equal to 0.3 ng/mL Strongly suggests TX Chemistry - BNP, HgbA1c, [id number] 19:12:00 Test Item Value Reference Range Comments Chemistry - BNP, HgbA1c, PTHi (test code=BNP) 238.9 pg/mL 0-100 [id number] 19:07:00 Test Item Value Reference Range Comments Chemistry (test code=NA-T) 139 mmol/L 136-145 Chemistry (test code=K-T) 3.9 mmol/L 3.5-5.1 Chemistry (test code=CL) 104 mmol/L 98-107 Chemistry (test code=CO2) 26 mmol/L 22-29 Chemistry (test code=ANGP) 13 mmol/L 10-20 Chemistry (test code=BUN) 14 mg/dL 9.8-20.1 Chemistry (test code=CREATT) 0.87 mg/dL 0.6-1.1 Chemistry (test 67 Reference Range for Estimated code=EGFRMDRD) GFR: Greater than 90 mL/min/1.73 m2NOTE:The MDRD equation has not been validated for use with theelderly (over 70 years of age), women, patientswith serious comorbid condition or persons with extremes ofbody size, muscle mass, or nutritional status. Chemistry (test code=GLU-T) 107 mg/dL 70-105 Chemistry (test code=CA) 8.8 mg/dL 7.8-10.44 [id number] 18:46:00 Test Item Value Reference Range Comments Hematology (test code=WBCT) 8.5 thou/uL 4.8-10.8 Hematology (test code=RBCT) 3.06 mill/uL 4.20-5.40 Hematology (test code=HGBT) 8.1 g/dL 12.0-16.0 Hematology (test code=HCTT) 25.4 % 36.0-47.0 Hematology (test code=MCV) 83.1 fl 81.0-99.0 Hematology (test code=MCH) 26.4 pg 27.0-31.0 Hematology (test code=MCHC) 31.7 g/dL 32.0-36.0 Hematology (test code=RDW) 17.9 % 11.5-14.5 Hematology (test code=PLTT) 374 thou/uL 130-400 Hematology (test code=MPV) 6.5 fL 7.4-10.4 Hematology (test code=%NEUT) 49.5 % 42.0-75.0 Hematology (test code=%LYMPH) 35.6 % 21.0-51.0 Hematology (test code=%MONO) 12.6 % 0.0-10.0 Hematology (test code=%EOS) 1.6 % 0.0-10.0 Hematology (test code=%BASO) 0.7 % 0.0-1.0 Hematology (test code=NEUT#) 4.2 thou/uL 1.40-6.50 Hematology (test code=LYMPH#) 3.0 thou/uL 1.20-3.40 Hematology (test code=MONO#) 1.1 thou/uL 0.11-0.59 Hematology (test code=EOS#) 0.1 thou/uL 0.0-0.7 Hematology (test code=BASO#) 0.1 thou/uL 0.0-0.2
[2018-02-09 18:09] LABS: Absolute Lymphocytes (CBC) 1.8 K/uL (0.7-4.9); Absolute Monocytes 0.6 K/uL (0.1-1.3); Absolute Neutrophil 2.8 K/uL (1.8-8.0); Basophils % 0.8 % (0-1.3); Eosinophils % 0.3 % (0-4.4); Hematocrit 30.9 % (36.0-45.0); Lymphocytes % 34.4 % (15.3-44.8); MCH 25.1 pg (27.0-35.0); MCV 78.7 fL (80-100); MPV 7.9 fL (7.6-11.3); Monocytes % 11.6 % (3.3-12.3); RBC Red Blood Cell Count 3.92 M/uL (3.86-4.86)
[2018-02-09 18:11] LABS: ALT/SGPT 30 U/L (12-78); AST/SGOT 46 U/L (15-37); Albumin 3.5 g/dL (3.4-5.0); Alkaline Phosphatase 116 U/L (45-117); BUN Blood Urea Nitrogen 10 mg/dL (7-18); Bicarbonate 27 mmol/L (21-32); Bilirubin Direct 0.2 mg/dL (0-0.2); Bilirubin Total 0.4 mg/dL (0.2-1.0); CKMB Creatine Kinase MB 1.1 ng/mL (0.3-3.6); Creatine Phosphokinase 50 U/L (26-192); Glucose Level 94 mg/dL (74-106); Magnesium 2.2 mg/dL (1.8-2.4); NT PRO-BNP 344 pg/mL (<125); Potassium 3.4 mmol/L (3.5-5.1); Protein, Total 7.6 g/dL (6.4-8.2); Sodium Level 140 mmol/L (136-145)
[2018-02-09 18:12] LABS: Protime INR 1.07
[2018-02-09] MEDS ORDERED: FAMOTIDINE 20 MG/2 ML VIAL IV ONE (18:15)
[2018-02-09] MEDS ORDERED: ONDANSETRON 4 MG/2 ML VIAL ONE (18:15)
[2018-02-09] MEDS ORDERED: NA CHLORIDE 0.9% 1,000 ML ONE (18:15)
[2018-02-09 18:30] LABS: Anisocytosis 1+; Blood Morphology Comment NOTED (NOT SEEN); Platelet Estimate ADEQ; Urine White Blood Cell Casts OK
[2018-02-09 18:31] LABS: Polychromasia 1+
--- NOTE | 2018-02-09 18:45 | RAD REPORT ---
EXAM DESCRIPTION: RAD - Chest Single View - 02/09/2018 6:31 pm CLINICAL HISTORY: CHEST PAIN Chest pain. COMPARISON: Chest Single View dated 01/18/2018 FINDINGS: Portable technique limits examination quality. The lungs are emphysematous but clear. The heart is normal in size. No displaced fractures.A small hi atal hernia is suspected. IMPRESSION: Mild COPD.
--- NOTE | 2018-02-09 18:46 | RAD REPORT ---
EXAM DESCRIPTION: RAD - Knee Left 3 View - 02/09/2018 6:31 pm CLINICAL HISTORY: PAIN COMPARISON: No comparisons FINDINGS: Mild osteoarthritis is suspected. No fracture or dislocation. Small suprapatellar joint ef fusion is present.
--- NOTE | 2018-02-09 19:09 | EKG ---
Test Date: 2018-02-09 Test Time: 16:59:43 Paper Sorter And Counter: YAJAIRA MEASUREMENT RESULTS: Intervals: Rate: 100 [place]: 150 QRSD: 90 QT: 366 QTc: 472 [place]: P: 53 [place]: 150 QRS: 25 T: 13 INTERPRETIVE STATEMENTS: Normal sinus rhythm Normal ECG Compared to ECG 01/18/2018 21:00:44 Sinus tachycardia no longer present Electronically Signed On 02-09-18 19:08:06 CDT by Kyle Romano
--- NOTE | 2018-02-09 19:18 | RAD REPORT ---
EXAM DESCRIPTION: CTAbdomen Pelvis W Contrast - 02/09/2018 6:59 pm CLINICAL HISTORY: Abdominal pain. ABD PAIN COMPARISON: Abdomen Pelvis W Contrast dated 01/18/2018 TECHNIQUE: Biphasic CT imaging of the abdomen and pelvis was performed with 100 ml non-ionic IV cont rast. All CT scans are performed using dose optimization technique as appropriate and may include automated exposure control or mA/KV adjustment according to patient size. FINDINGS: The lung bases are clear.Moderate axial hiatal hernia is seen with a mildly prominent para esophageal lymph node measuring 11 mm. Mild fatty liver. Cholecystectomy clips are seen. The spleen, pancreas, adrenal glands and right kidn ey are normal. Mild edema in the inferior left kidney is again noted, appearing improved since the co mparative study, most compatible with improved pyelonephritis. No perinephric abscess. No bowel obstruction, free air, free fluid or abscess. Mild rectosigmoid mucosal thickening is seen. The appendix is normal. No evidence of significant lymphadenopathy. No suspicious bony findings. IMPRESSION: Mild improvement in the left-sided pyelonephritis. Mild rectosigmoid colitis is possible.
--- NOTE | 2018-02-09 19:19 | EDPHYS ---
Physician Documentation [facility] Name: Teri Hinkle Age: 57 yrs Sex: Female : 1960 Arrival Date: 02/09/2018 Time: 17:01 Bed 14 Private MD: ED Physician Tee Cervantes HPI: 02/09 17:21 This 57 yrs old Female presents to ER via EMS with complaints of shaq Nausea/Vomiting, Chest Pain > 30 y/o, Headache, Knee Pain. 17:21 The patient presents to the emergency department with nausea, vomiting, that is shaq continuous. Onset: The symptoms/episode began/occurred 1 day(s) ago. Possible causes: unknown. The symptoms are aggravated by nothing. The symptoms are alleviated by nothing. Associated signs and symptoms: The patient has no apparent associated signs or symptoms. Severity of symptoms: At their worst the symptoms were mild moderate in the emergency department the symptoms are unchanged. The patient has not experienced similar symptoms in the past. Historical: - Allergies: 17:10 PENICILLINS; aj - Home Meds: 17:10 Celexa 20 mg Oral tab 1 tab once daily [Active]; clopidogrel 75 mg Oral tab 1 tab once aj daily [Active]; ibuprofen 600 mg Oral tab as needed [Active]; nortriptyline 50 mg Oral cap 2 caps once daily [Active]; - PMHx: 17:10 CHF; COPD; Depression; Hypertension; aj 17:11 Migraines; aj - PSHx: 17:10 Cholecystectomy; ; aj - Immunization history:: Adult Immunizations up to date. - Social history:: Smoking status: Patient uses tobacco products, smokes one-half pack cigarettes per day. - Ebola Screening: : Patient negative for fever greater than or equal to 101.5 degrees Fahrenheit, and additional compatible Ebola Virus Disease symptoms Patient denies exposure to infectious person Patient denies travel to an Ebola-affected area in the 21 days before illness onset No symptoms or risks identified at this time. ROS: 17:22 Constitutional: Negative for fever, chills, and weight loss, Eyes: Negative for injury, shaq pain, redness, and discharge, ENT: Negative for injury, pain, and discharge, Neck: Negative for injury, pain, and swelling, Respiratory: Negative for shortness of breath, cough, wheezing, and pleuritic chest pain, Back: Negative for injury and pain, : Negative for injury, bleeding, discharge, and swelling, Skin: Negative for injury, rash, and discoloration, Neuro: Negative for headache, weakness, numbness, tingling, and seizure, Psych: Negative for depression, anxiety, suicide ideation, homicidal ideation, and hallucinations, Allergy/Immunology: Negative for hives, rash, and allergies, Endocrine: Negative for neck swelling, polydipsia, polyuria, polyphagia, and marked weight changes, Hematologic/Lymphatic: Negative for swollen nodes, abnormal bleeding, and unusual bruising. 17:22 Neck: Positive for 17:22 Cardiovascular: Positive for chest pain. 17:22 Abdomen/GI: Positive for abdominal pain, nausea and vomiting. 17:22 : Positive for injury or acute deformity, of the left knee. Exam: 17:22 Constitutional: This is a well developed, well nourished patient who is awake, alert, shaq and in no acute distress. Head/Face: Normocephalic, atraumatic. Eyes: Pupils equal round and reactive to light, extra-ocular motions intact. Lids and lashes normal. Conjunctiva and sclera are non-icteric and not injected. Cornea within normal limits. Periorbital areas with no swelling, redness, or edema. ENT: Nares patent. No nasal discharge, no septal abnormalities noted. Tympanic membranes are normal and external auditory canals are clear. Oropharynx with no redness, swelling, or masses, exudates, or evidence of obstruction, uvula midline. Mucous membranes moist. Neck: Trachea midline, no thyromegaly or masses palpated, and no cervical lymphadenopathy. Supple, full range of motion without nuchal rigidity, or vertebral point tenderness. No Meningismus. Chest/axilla: Normal chest wall appearance and motion. Nontender with no deformity. No lesions are appreciated. Cardiovascular: Regular rate and rhythm with a normal S1 and S2. No gallops, murmurs, or rubs. Normal PMI, no JVD. No pulse deficits. Respiratory: Lungs have equal breath sounds bilaterally, clear to auscultation and percussion. No rales, rhonchi or wheezes noted. No increased work of breathing, no retractions or nasal flaring. Back: No spinal tenderness. No costovertebral tenderness. Full range of motion. Skin: Warm, dry with normal turgor. Normal color with no rashes, no lesions, and no evidence of cellulitis. MS/ Extremity: Pulses equal, no cyanosis. Neurovascular intact. Full, normal range of motion. Neuro: Awake and alert, GCS 15, oriented to person, place, time, and situation. Cranial nerves II-XII grossly intact. Motor strength 5/5 in all extremities. Sensory grossly intact. Cerebellar exam normal. Normal gait. Psych: Awake, alert, with orientation to person, place and time. Behavior, mood, and affect are within normal limits. 17:22 Abdomen/GI: Inspection: distension, Bowel sounds: normal, Palpation: mild abdominal tenderness, moderate abdominal tenderness, in the epigastric area, right upper quadrant and left upper quadrant. Vital Signs: 17:11 BP 139 / 67; Pulse 105; Resp 20; Temp 98.6; Pulse Ox 94% on R/A; Weight 99.79 kg; aj Height 5 ft. 2 in. (157.48 cm); 18:51 BP 145 / 87; Pulse 99; Resp 20; Pulse Ox 99% on R/A; aj 21:12 BP 148 / 71; Pulse 95; Resp 19; Pulse Ox 99% on R/A; aj 17:11 Body Mass Index 40.24 (99.79 kg, 157.48 cm) aj MDM: 17:02 Patient medically screened. [facility] [place] 17:24 Data reviewed: vital signs, nurses notes, lab test result(s), EKG, radiologic studies, [facility] [place] CT scan, plain films. 02/09 17:13 Order name: Basic Metabolic Panel; Complete Time: 18:57 02/09 17:13 Order name: CBC with Diff; Complete Time: 18:57 02/09 17:13 Order name: Ckmb; Complete Time: 18:57 02/09 17:13 Order name: CPK; Complete Time: 18:57 02/09 17:13 Order name: LFT's; Complete Time: 18:57 02/09 17:13 Order name: Magnesium; Complete Time: 18:57 02/09 17:13 Order name: NT PRO-BNP; Complete Time: 18:57 02/09 17:13 Order name: PT-INR; Complete Time: 18:57 02/09 17:13 Order name: Ptt, Activated; Complete Time: 18:57 02/09 17:13 Order name: Troponin (emerg Dept Use Only); Complete Time: 18:57 02/09 17:20 Order name: Lipase; Complete Time: 18:57 [facility] [place] 02/09 17:20 Order name: Urine Culture [facility] [place] 02/09 18:11 Order name: CBC Smear Scan; Complete Time: 18:57 [facility] 02/09 19:38 Order name: Urine Dipstick--Ancillary (enter results) rg2 02/09 17:13 Order name: XRAY Chest (1 view); Complete Time: 18:57 02/09 17:13 Order name: EKG; Complete Time: 17:14 02/09 17:13 Order name: Cardiac monitoring; Complete Time: 21:17 02/09 17:13 Order name: EKG - Nurse/Tech; Complete Time: 21:17 02/09 17:13 Order name: IV Saline Lock; Complete Time: 21:17 02/09 17:13 Order name: XRAY Knee LEFT 3 view; Complete Time: 18:57 02/09 17:20 Order name: CT Abd/Pelvis - W/Contrast [facility] [place] 02/09 19:28 Order name: CONS Physician Consult [facility] 02/09 19:43 Order name: Urine Dipstick-Ancillary [facility] 02/09 17:13 Order name: Labs collected and sent; Complete Time: 21:16 02/09 17:13 Order name: O2 Per Protocol; Complete Time: 21:16 02/09 17:13 Order name: O2 Sat Monitoring; Complete Time: 21:16 02/09 17:13 Order name: Urine Dipstick-Ancillary (obtain specimen); Complete Time: 21:17 Administered Medications: 18:33 Drug: Zofran 4 mg Route: IVP; Site: right antecubital; aj 19:24 Follow up: Response: No adverse reaction aj 18:34 Drug: NS 0.9% 1000 ml Route: IV; Rate: 1 bolus; Site: right antecubital; aj 19:23 Follow up: Response: No adverse reaction; IV Status: Completed infusion; IV Intake: aj 1000ml 18:34 Drug: Pepcid 20 mg Route: IVP; Site: right antecubital; aj 19:24 Follow up: Response: No adverse reaction aj 19:23 Drug: NS 0.9% with KCl 20 mEq/L 1000 ml Route: IV; Rate: 125 ml/hr; Site: right antecubital; 21:46 Follow up: Response: No adverse reaction; IV Status: Infusion continued upon admission; IV Intake: 125ml 19:45 Drug: Flagyl 500 mg Volume: 100 ml; Route: IVPB; Rate: 200 ml/hr; Infused Over: 30 aj mins; Site: right antecubital; 20:48 Follow up: Response: No adverse reaction; IV Status: Completed infusion; IV Intake: aj 100ml 19:49 Drug: Aspirin Chewable Tablet 162 mg Route: PO; aj 21:47 Follow up: Response: No adverse reaction aj 20:48 Drug: levofloxacin 750 mg Volume: 150 ml; Route: IVPB; Infused Over: 90 mins; Site: right antecubital; 21:45 Follow up: Response: No adverse reaction; IV Status: Infusion continued upon admission; IV Intake: 100ml Disposition: 02/09/18 19:18 Hospitalization ordered by Noemi Ji for Observation. Preliminary diagnosis are Vomiting, Other chest pain, Abdominal tenderness, Fall due to bumping against object, Pain in left knee - suprapatellar effusion, Hypokalemia, Acute tubulo-interstitial nephritis, Left sided colitis - rectal. - Bed requested for Telemetry/MedSurg (observation). - Status is Observation. - Condition is Fair. - Problem is new. - Symptoms have improved. UTI on Admission? Yes Signatures: Dispatcher [employer] EDJayshree Lawson RN RN kl Myers, Amanda, RN RN aj Anderson, Corey, MD MD cha Corrections: (The following items were deleted from the chart) 19:24 19:18 Hospitalization Ordered by Noemi Ji MD for Observation. Preliminary shaq diagnosis is Vomiting; Other chest pain; Abdominal tenderness; Fall due to bumping against object; Pain in left knee - suprapatellar effusion; Hypokalemia. Bed requested for Telemetry/MedSurg (observation). Status is Observation. Condition is Fair. Problem is new. Symptoms have improved. UTI on Admission? No. shaq 21:11 19:24 02/09/2018 19:18 Hospitalization Ordered by Noemi Ji MD for Observation. rahel Preliminary diagnosis is Vomiting; Other chest pain; Abdominal tenderness; Fall due to bumping against object; Pain in left knee - suprapatellar effusion; Hypokalemia; Acute tubulo-interstitial nephritis; Left sided colitis - rectal. Bed requested for Telemetry/MedSurg (observation). Status is Observation. Condition is Fair. Problem is new. Symptoms have improved. UTI on Admission? Yes. [facility] [place] 21:47 21:11 02/09/2018 19:18 Hospitalization Ordered by Noemi Ji MD for Observation. aj Preliminary diagnosis is Vomiting; Other chest pain; Abdominal tenderness; Fall due to bumping against object; Pain in left knee - suprapatellar effusion; Hypokalemia; Acute tubulo-interstitial nephritis; Left sided colitis - rectal. Bed requested for Telemetry/MedSurg (observation). Status is Observation. Condition is Fair. Problem is new. Symptoms have improved. UTI on Admission? Yes. kl
--- NOTE | 2018-02-09 19:19 | ER ---
Nurse's Notes [facility] Name: Teri Hinkle Age: 57 yrs Sex: Female : 1960 Arrival Date: 02/09/2018 Time: 17:01 Bed 14 Private MD: Diagnosis: Vomiting;Other chest pain;Abdominal tenderness;Fall due to bumping against object;Pain in left knee-suprapatellar effusion;Hypokalemia;Acute tubulo-interstitial nephritis;Left sided colitis-rectal Presentation: 02/09 17:02 Presenting complaint: EMS states: Migraine with N/V, chest pain, left knee pain since aj yesterday. Transition of care: patient was not received from another setting of care. Onset of symptoms was February 08, 2018. Risk Assessment: Do you want to hurt yourself or someone else? Patient reports no desire to harm self or others. Initial Sepsis Screen: Does the patient meet any 2 criteria? No. Patient's initial sepsis screen is negative. Does the patient have a suspected source of infection? No. Patient's initial sepsis screen is negative. Care prior to arrival: None. 17:02 Method Of Arrival: EMS: [facility] aj 17:02 Acuity: PRISCILA 3 aj Triage Assessment: 17:11 General: Appears in no apparent distress. comfortable, Behavior is calm, cooperative, aj appropriate for age. Pain: Complains of pain in face, scalp, chest and left knee. Neuro: Level of Consciousness is awake, alert, obeys commands, Oriented to person, place, time, situation, Appropriate for age. Neuro: Reports headache. Cardiovascular: Reports chest pain, Capillary refill < 3 seconds in bilateral fingers Patient's skin is warm and dry. Rhythm is regular. Respiratory: Airway is patent Respiratory effort is even, unlabored, Respiratory pattern is regular, symmetrical. GI: Reports nausea, vomiting. Derm: Skin is intact, is healthy with good turgor, Skin is pink, warm \T\ dry. normal. Musculoskeletal: Reports pain in left knee. Historical: - Allergies: 17:10 PENICILLINS; aj - Home Meds: 17:10 Celexa 20 mg Oral tab 1 tab once daily [Active]; clopidogrel 75 mg Oral tab 1 tab once aj daily [Active]; ibuprofen 600 mg Oral tab as needed [Active]; nortriptyline 50 mg Oral cap 2 caps once daily [Active]; - PMHx: 17:10 CHF; COPD; Depression; Hypertension; aj 17:11 Migraines; aj - PSHx: 17:10 Cholecystectomy; ; aj - Immunization history:: Adult Immunizations up to date. - Social history:: Smoking status: Patient uses tobacco products, smokes one-half pack cigarettes per day. - Ebola Screening: : Patient negative for fever greater than or equal to 101.5 degrees Fahrenheit, and additional compatible Ebola Virus Disease symptoms Patient denies exposure to infectious person Patient denies travel to an Ebola-affected area in the 21 days before illness onset No symptoms or risks identified at this time. Screenin:52 Abuse screen: Denies threats or abuse. Denies injuries from another. Nutritional aj screening: No deficits noted. Tuberculosis screening: No symptoms or risk factors identified. Fall Risk None identified. Assessment: 18:52 Reassessment: See triage note. GI: Reports nausea. aj 21:12 Reassessment: Patient appears in no apparent distress at this time. No changes from aj previously documented assessment. Patient and/or family updated on plan of care and expected duration. Pain level reassessed. Patient is alert, oriented x 3, equal unlabored respirations, skin warm/dry/pink. Patient states symptoms have improved. Vital Signs: 17:11 BP 139 / 67; Pulse 105; Resp 20; Temp 98.6; Pulse Ox 94% on R/A; Weight 99.79 kg; aj Height 5 ft. 2 in. (157.48 cm); 18:51 BP 145 / 87; Pulse 99; Resp 20; Pulse Ox 99% on R/A; aj 21:12 BP 148 / 71; Pulse 95; Resp 19; Pulse Ox 99% on R/A; aj 17:11 Body Mass Index 40.24 (99.79 kg, 157.48 cm) ED Course: 17:01 Patient arrived in ED. aj 17:02 Tee Cervantes MD is Attending Physician. [facility] 17:08 Triage completed. aj 17:09 EKG done, by energy conservation technician. reviewed by Tee Cervantes MD. sm3 17:11 Arm band placed on left wrist. Patient placed in an exam room, on a stretcher. aj 17:25 Lisa Hood, RN is Primary Nurse. aj 17:30 Inserted saline lock: 20 gauge in right antecubital area, using aseptic technique. aj Blood collected. By AG Patient admitted, IV remains in place. 18:31 XRAY Chest (1 view) In Process Unspecified. EDMS 18:31 XRAY Knee LEFT 3 view In Process Unspecified. EDMS 18:52 Patient has correct armband on for positive identification. aj 18:58 CT completed. Patient tolerated procedure well. Patient moved to CT via wheelchair. sw Patient moved back from CT. 18:59 CT Abd/Pelvis - W/Contrast In Process Unspecified. EDMS 19:14 Noemi Ji MD is Hospitalizing Provider. [facility] 21:12 No provider procedures requiring assistance completed. aj Administered Medications: 18:33 Drug: Zofran 4 mg Route: IVP; Site: right antecubital; aj 19:24 Follow up: Response: No adverse reaction aj 18:34 Drug: NS 0.9% 1000 ml Route: IV; Rate: 1 bolus; Site: right antecubital; aj 19:23 Follow up: Response: No adverse reaction; IV Status: Completed infusion; IV Intake: aj 1000ml 18:34 Drug: Pepcid 20 mg Route: IVP; Site: right antecubital; aj 19:24 Follow up: Response: No adverse reaction aj 19:23 Drug: NS 0.9% with KCl 20 mEq/L 1000 ml Route: IV; Rate: 125 ml/hr; Site: right aj antecubital; 21:46 Follow up: Response: No adverse reaction; IV Status: Infusion continued upon admission; aj IV Intake: 125ml 19:45 Drug: Flagyl 500 mg Volume: 100 ml; Route: IVPB; Rate: 200 ml/hr; Infused Over: 30 aj mins; Site: right antecubital; 20:48 Follow up: Response: No adverse reaction; IV Status: Completed infusion; IV Intake: aj 100ml 19:49 Drug: Aspirin Chewable Tablet 162 mg Route: PO; aj 21:47 Follow up: Response: No adverse reaction aj 20:48 Drug: levofloxacin 750 mg Volume: 150 ml; Route: IVPB; Infused Over: 90 mins; Site: right antecubital; 21:45 Follow up: Response: No adverse reaction; IV Status: Infusion continued upon admission; aj IV Intake: 100ml Intake: 19:23 IV: 1000ml; Total: 1000ml. aj 20:48 IV: 100ml; Total: 1100ml. chucky 21:45 IV: 100ml; Total: 1200ml. chucky 21:46 IV: 125ml; Total: 1325ml. chucky Outcome: 19:18 Decision to Hospitalize by Provider. shaq 21:40 Admitted to Med/surg accompanied by tech, via wheelchair, Report called to Shira locke 21:40 Condition: good 21:40 Instructed on the need for admit. 21:47 Patient left the ED. chucky Signatures: Dispatcher [employer] Lisa Francis, RN Tee Lutz MD MD cha Warren, Rosalba Brown, Giovanna [facility]
[2018-02-09] MEDS ORDERED: NS KCL 20MEQ 1,000 ML IV ONE (19:22)
[2018-02-09] MEDS ORDERED: ACETAMINOPHEN 500 MG TAB PO PRN (19:35)
[2018-02-09 19:42] LABS: Urine Blood TRACE (NEG); Urine Glucose NEGATIVE (NEG); Urine Protein NEGATIVE (NEG)
[2018-02-09] MEDS ORDERED: METRONIDAZOLE 500mg IVPB 500 MG/100 ML BAG IV ONE (19:43)
[2018-02-09] MEDS ORDERED: Levofloxacin 750mg IV 750 MG/150 ML BAG IV ONE (19:43)
[2018-02-09] MEDS ORDERED: ASPIRIN 81 MG CHEWABLE TABLET ONE (19:43)
[2018-02-09 22:40] VITALS: BMI 38.4
[2018-02-09] MEDS: MORPHINE 2 MG/ML SYR IV PRN (22:44)
[2018-02-09] MEDS: NA CHLORIDE 0.9% 1,000 ML IV SCH (22:46)
[2018-02-09] MEDS: ONDANSETRON 4 MG/2 ML VIAL IV PRN (22:47)
[2018-02-10] MEDS: ONDANSETRON 4 MG/2 ML VIAL IV PRN ×2 (02:41→07:40)
[2018-02-10] MEDS: MORPHINE 2 MG/ML SYR IV PRN ×2 (02:42→07:40)
[2018-02-10 05:46] LABS: Absolute Lymphocytes (CBC) 1.5 K/uL (0.7-4.9); Absolute Monocytes 0.7 K/uL (0.1-1.3); Absolute Neutrophil 2.1 K/uL (1.8-8.0); Basophils % 0.9 % (0-1.3); Eosinophils % 0.4 % (0-4.4); Hematocrit 26.5 % (36.0-45.0); Lymphocytes % 35.7 % (15.3-44.8); MCH 25.6 pg (27.0-35.0); MCV 79.4 fL (80-100); MPV 7.8 fL (7.6-11.3); Monocytes % 15.3 % (3.3-12.3); RBC Red Blood Cell Count 3.33 M/uL (3.86-4.86)
[2018-02-10] MEDS: NA CHLORIDE 0.9% 1,000 ML IV SCH (05:46)
[2018-02-10 05:54] LABS: ALT/SGPT 25 U/L (12-78); AST/SGOT 37 U/L (15-37); Alkaline Phosphatase 99 U/L (45-117); BUN Blood Urea Nitrogen 8 mg/dL (7-18); Bicarbonate 25 mmol/L (21-32); Bilirubin Total 0.3 mg/dL (0.2-1.0); Glucose Level 84 mg/dL (74-106); Potassium 3.2 mmol/L (3.5-5.1); Protein, Total 6.6 g/dL (6.4-8.2); Sodium Level 141 mmol/L (136-145)
[2018-02-10 06:18] LABS: Protime INR 1.17
--- NOTE | 2018-02-10 07:24 | P.HP ---
Certification for Inpatient Patient admitted to: Inpatient With expected LOS: >2 Midnights Patient will require the following post-hospital care: None Practitioner: I am a practitioner with admitting privileges, knowledge of patient current condition, hospital course, and medical plan of care. Services: Services provided to patient in accordance with Admission requirements found in Title 42 Section 412.3 of the Code of Federal Regulations Patient History Date of Service: 02/09/18 Reason for admission: Abdominal pain/pyelonephritis/colitis/chest pain/nausea History of Present Illness: Patient is a 57-year-old female came to the hospital with abdominal pain and intractable nausea and vomiting. Patient has also been admitted recently for bleeding. Patient's hemoglobin was she came into the hospital was 9.5. Patient has had upper GI which did not reveal etiology of bleeding. Patient has not had a colonoscopy. Patient was treated a few weeks ago for pyelonephritis. 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 Patient's clinical symptoms improved. Patient was discharged and had been doing well for the last couple of weeks. Patient's symptoms worsened the last few days. Patient developed some chest discomfort along with some nausea and vomiting. She also developed abdominal discomfort. Patient was admitted to the hospital for further workup. Allergies Penicillins Adverse Reaction (Mild, Verified 02/09/18 21:35) Itching/Hives/Rash Home Medications: Citalopram [Celexa*] 20 mg PO DAILY 01/21/18 Furosemide [Lasix*] 20 mg PO DAILY 01/21/18 Nortriptyline HCl [Pamelor] 100 mg PO BEDTIME 01/21/18 - Past Medical/Surgical History Has patient received pneumonia vaccine in the past: No Diabetic: No -: COPD -: CHF -: Depression -: HTN -: Migraines -: Cholecystectomy -: - Family History Father Family History: Reviewed- Non-Contributory - Social History Smoking Status: Current every day smoker Alcohol use: No CD- Drugs: No Caffeine use: Yes Place of Residence: Home Review of Systems 10-point ROS is otherwise unremarkable Physical Examination - Vital Signs Temperature: 98.4 F Blood Pressure: 142/78 Pulse: 110 Respirations: 20 Pulse Ox (%): 94 - Physical Exam General: Alert, In no apparent distress, Oriented x3 HEENT: Atraumatic, PERRLA, Mucous membr. moist/pink, EOMI, Sclerae nonicteric Neck: Supple, 2+ carotid pulse no bruit, No LAD, Without JVD or thyroid abnormality Respiratory: Clear to auscultation bilaterally, Normal air movement Cardiovascular: Regular rate/rhythm, Normal S1 S2, No murmurs Gastrointestinal: Normal bowel sounds, Soft and benign, No rebound, No guarding , Distended, Tenderness Musculoskeletal: No clubbing, No tenderness, Swelling Integumentary: No rashes Neurological: Normal gait, Normal speech, Normal strength at 5/5 x4 extr, Normal tone, Sensation intact, Cranial nerves 3-12 intact, Normal affect Lymphatics: No axilla or inguinal lymphadenopathy - Studies Laboratory Data (last 24 hrs) 02/09/18 17:30: Lipase 49 L 02/09/18 17:30: PT 12.6 H, INR 1.07, APTT 30.8 02/09/18 17:30: WBC 5.3, Hgb 9.8 L, Hct 30.9 L, Plt Count 393 02/09/18 17:30: Sodium 140, Potassium 3.4 L, BUN 10, Creatinine 0.60, Glucose 94 , Magnesium 2.2, Total Bilirubin 0.4, AST 46 H, ALT 30, Alkaline Phosphatase 116 Assessment & Plan - Problems (Diagnosis) (1) Abdominal pain Current Visit: Yes Status: Acute (2) Colitis Current Visit: Yes Status: Acute (3) Syncope Current Visit: Yes Status: Acute (4) Intractable pain Current Visit: Yes Status: Acute (5) Chest pain, rule out acute myocardial infarction Current Visit: Yes Status: Acute (6) Acute pyelonephritis Onset Date: 01/19/18 Current Visit: No Status: Acute (7) Intractable nausea and vomiting Current Visit: No Status: Acute (8) Acute blood loss anemia Current Visit: Yes Status: Acute - Plan Plan: 1. Continue with IV hydration and PPI twice daily 2. Continue with IV antibiotics 3. Continue with pain control 4. NPO 5. GI consultation for possible colonoscopy 6. Serial H&H, and we will monitor LFTs and lipase along with electrolytes. 7. Anti emetics and pain control 8. GI and DVT prophylaxis - Advance Directives Does patient have a Living Will: No Does patient have a Durable POA for Healthcare: No - Code Status/Comfort Care Code Status Assessed: Yes Code Status: Full Code Critical Care: No Time Spent Managing PTS Care (In Minutes): 50
[2018-02-10] MEDS ORDERED: TRAMADOL HCL 50 MG TAB PO PRN (12:13)
[2018-02-10] MEDS ORDERED: ONDANSETRON 4 MG (ODT) TAB PO PRN (12:14)
[2018-02-10 13:15] VITALS: O2SAT 92
[2018-02-10 14:31] VITALS: BP 147/83; TEMP 98
--- NOTE | 2018-02-10 17:54 | P.SSS ---
Patient History Date of Service: 02/10/18 Reason for admission: Abdominal pain/pyelonephritis/colitis/chest pain/nausea History of Present Illness: Patient is a 57-year-old female came to the hospital with abdominal pain and intractable nausea and vomiting. Patient has also been admitted recently for bleeding. Patient's hemoglobin was she came into the hospital was 9.5. Patient has had upper GI which did not reveal etiology of bleeding. Patient has not had a colonoscopy. Patient was treated a few weeks ago for pyelonephritis. Patient was given IV antibiotics and mold insert changer to oral antibiotics. Patient's clinical symptoms improved. Patient was discharged and had been doing well for the last couple of weeks. Patient's symptoms worsened the last few days. Patient developed some chest discomfort along with some nausea and vomiting. She also developed abdominal discomfort. Patient was admitted to the hospital for further workup. Allergies Penicillins Adverse Reaction (Mild, Verified 02/09/18 21:35) Itching/Hives/Rash Home Medications: Citalopram [Celexa*] 20 mg PO DAILY 01/21/18 Furosemide [Lasix*] 20 mg PO DAILY 01/21/18 Nortriptyline HCl [Pamelor] 100 mg PO BEDTIME 01/21/18 Cefuroxime [Ceftin] 250 mg PO BID #14 tab 02/10/18 Ondansetron HCl [Zofran] 4 mg PO DAILY PRN #10 tablet 02/10/18 - Past Medical/Surgical History Has patient received pneumonia vaccine in the past: No Diabetic: No -: COPD -: CHF -: Depression -: HTN -: Migraines -: Cholecystectomy -: - Social History Smoking Status: Current every day smoker Alcohol use: No CD- Drugs: No Caffeine use: Yes Place of Residence: Home Review of Systems General: As per HPI Physical Examination - Vital Signs Temperature: 98.0 F Blood Pressure: 147/83 Pulse: 90 Respirations: 18 Pulse Ox (%): 92 - Physical Exam General: Alert, In no apparent distress HEENT: Atraumatic, PERRLA, Mucous membr. moist/pink, EOMI, Sclerae nonicteric Neck: Supple, 2+ carotid pulse no bruit, No LAD, Without JVD or thyroid abnormality Respiratory: Clear to auscultation bilaterally, Normal air movement Cardiovascular: Regular rate/rhythm, Normal S1 S2 Gastrointestinal: Normal bowel sounds, No tenderness Musculoskeletal: No tenderness Integumentary: No rashes Neurological: Normal gait, Normal speech, Normal strength at 5/5 x4 extr, Normal tone, Normal affect Lymphatics: No axilla or inguinal lymphadenopathy - Studies Laboratory Data (last 24 hrs) 02/09/18 17:30: Lipase 49 L 02/09/18 17:30: PT 12.6 H, INR 1.07, APTT 30.8 02/09/18 17:30: WBC 5.3, Hgb 9.8 L, Hct 30.9 L, Plt Count 393 02/09/18 17:30: Sodium 140, Potassium 3.4 L, BUN 10, Creatinine 0.60, Glucose 94 , Magnesium 2.2, Total Bilirubin 0.4, AST 46 H, ALT 30, Alkaline Phosphatase 116 - Diagnosis (Problem(s)) (1) Abdominal pain Onset Date: 02/10/18 Status: Resolved Qualifiers: Abdominal location: generalized Qualified Code(s): R10.84 - Generalized abdominal pain (2) Acute pyelonephritis Onset Date: 01/19/18 Status: Resolved (3) Chest pain, rule out acute myocardial infarction Onset Date: 02/10/18 Status: Resolved (4) Colitis Onset Date: 02/10/18 Status: Resolved (5) Intractable nausea and vomiting Status: Resolved Qualifiers: Vomiting type: unspecified Qualified Code(s): R11.2 - Nausea with vomiting , unspecified Treatment Summary: Overall during the hospital stay patient remain stable Patient was initially admitted to the hospital for abdominal pain, chest pain, possible colitis, follow up of pyelonephritis. Patient was initially admitted to the hospital and discharged here from the hospital for acute pyelonephritis. Patient stated however she has not been able to refill her prescription as she has not been had any money for her prescription. Patient stated that she started having some abdominal pain nausea and vomiting and thus decided to come to the hospital for further workup. Patient had an abdominal CT done here in the hospital which was consistent with improvement of the pyelonephritis and no other acute etiology seen. Patient had concerns for colitis. Patient was started on IV antibiotics and had marked improvement in her symptoms. Patient initially also had some intractable nausea and vomiting which resolved with Zofran here in the hospital. Patient then was discharged home under stable condition and was asked to follow up with GI for a colonoscopy in about 6 weeks post the colitis. Patient had C. diff colitis negative in as well. Cards were consulted for patient's chest pain. Which resolved after it mission. Cardiology recommended the patient's chest pain is not related to cardiac in nature most likely secondary to her abdominal pain and no cardiac workup is required at this time. Patient was then discharged home under stable condition and was provided with prescription assistance program to afford her medication. Patient was given prescription for Ceftin and Zosyn upon discharge. Patient agreed with the above plan and thus discharged home safely under stable condition - Disposition Disposition: ROUTINE DISCHARGE Condition: GOOD Diet: Regular Activity: Ad brooklynn
[2018-02-10] MEDS ORDERED: NORTRIPTYLINE HCL 25 MG CAP PO SCH (21:00)
--- NOTE | 2018-02-11 08:31 | CON ---
Date of Consultation: 02/10/2018 Reason For Consultation: Chest pain. History Of Present Illness: Ms. Hinkle is a 57-year-old white woman. She came in with multiple sympt oms including headaches, nausea, vomiting, sharp chest pain. Had a BNP of 334, potassium of 3.4, hem oglobin was 9.8. Her chest x-ray shows COPD and her EKG was normal. Troponin was normal and she had a CT of her abdomen showing pyelonephritis and colitis. The chest pain is nonexertional and constan t and worse with nausea and vomiting. She has a history of congestive heart failure, COPD, hypertens ion, and depression. Allergies: PENICILLIN. Review of Systems: Negative. Social History: Negative. Family History: Negative. Medications: At home include Celexa, iron, Lasix, Pamelor, Zofran, Protonix, and Levaquin. No cardi ac medication except her Lasix. Physical Examination: General: She appeared to be in [id number] distress from abdominal pain. Vital Signs: Stable, afebrile, sinus rhythm. HEENT: Negative. Neck: Supple with no bruit. Chest: Clear to auscultation and percussion. Cardiac: Exam revealed a regular rhythm and rate without any murmurs, gallops, or rubs. Abdomen: Benign. Extremities: Revealed no clubbing, cyanosis, or edema. Diagnostic Data: As stated earlier. Impression And Plan: Atypical chest pain, most likely gastric in origin. She has a diagnosis of con gestive heart failure, although she had a perfectly normal echo in January 2018. We will not repeat any cardiac workup at this point. It may be reasonable to do an outpatient stress test on her. I would personally treat her colitis for now and pyelonephritis. Consider gastroenterology consult, but no further cardiac workup from my standpoint. CARY/NIRAV Voice ID: [id number] Report ID: [id number]
[2018-02-11] MEDS ORDERED: CITALOPRAM 10 MG TABLET PO SCH (09:00)
[2018-02-11] MEDS ORDERED: FUROSEMIDE 20 MG TABLET PO SCH (09:00)
== END 2018-02-10 15:30 | disposition home or self-care (01) | DRG 392 ==
LOC: ER 17:00 → ERHOLD 19:25 → 2ND 21:13
PROVIDERS: ADMIT Hospitalist; ATTEND Family Medicine
DX: K52.9 Noninfective gastroenteritis and colitis, unspecified (principal); D62 Acute posthemorrhagic anemia; R07.89 Other chest pain; I11.0 Hypertensive heart disease with heart failure; I50.9 Heart failure, unspecified; J44.9 Chronic obstructive pulmonary disease, unspecified; F32.9 Major depressive disorder, single episode, unspecified; F17.210 Nicotine dependence, cigarettes, uncomplicated; R10.84 Generalized abdominal pain; R11.2 Nausea with vomiting, unspecified; R55 Syncope and collapse; M25.562 Pain in left knee; W18.00XA Striking against unspecified object with subsequent fall, initial encounter; Y92.009 Unspecified place in unspecified non-institutional (private) residence as the place of occurrence of the external cause; Z88.0 Allergy status to penicillin
CPT/HCPCS: 36415; 71045; 74177; 80048; 80053; 80076; 81003; 82550; 82553; 83690; 83735; 83880; 84484; 85025; 85610; 85730; 87086; 87088; 93005; 96361; 96365; 96367; 96375; 99285; J2270; J2405; J7030; Q9967

== ENCOUNTER 2018-04-18 04:29 | Inpatient (IN) | payer SELFPAY ==
--- OUTSIDE RECORDS SUMMARY | 2018-04-18 04:32 | XMS REPORT ---
:1960 [facility] Address [address] [place] [id number] Care Team Providers Name Role Phone AMANDA [...] or Equal to 0.3 ng/mL Strongly suggests [place] Patient not in room - return [id number] 19:13:00 Test Item Value Reference Range Comments Chemistry (test 0.5 ng/mL 0-6.6 code=CKMBM-T) Chemistry (test Less than 0.010 < 0.028 code=TROPI-T) ng/mL Reference Range 0.00 - 0.028 ng/mL Negative 0.029 - 0.29 ng/mL Indeterminate Greater or Equal to 0.3 ng/mL Strongly suggests TN Chemistry - BNP, HgbA1c, [id number] 19:12:00 Test Item Value Reference Range Comments Chemistry - BNP, HgbA1c, PTHi (test code=BNP) 238.9 pg/mL 0-100 [id number] 19:07:00 Test Item Value Reference Range Comments [...] 70-105 Chemistry (test code=CA) 8.8 mg/dL 7.8-10.44 [id number] 18:46:00 Test Item Value Reference Range Comments [...]
[2018-04-18] MEDS ORDERED: NA CHLORIDE 0.9% 2,000 ML ONE (04:56)
[2018-04-18] MEDS ORDERED: ONDANSETRON 4 MG/2 ML VIAL ONE (04:56)
[2018-04-18 05:28] LABS: Absolute Lymphocytes (CBC) 1.8 K/uL (0.7-4.9); Absolute Monocytes 1.5 K/uL (0.1-1.3); Basophils % 0.2 % (0-1.3); Hematocrit 25.6 % (36.0-45.0); Lymphocytes % 10.2 % (15.3-44.8); MCH 26.5 pg (27.0-35.0); MCV 79.8 fL (80-100); MPV 8.7 fL (7.6-11.3); Monocytes % 8.6 % (3.3-12.3); RBC Red Blood Cell Count 3.21 M/uL (3.86-4.86)
[2018-04-18 05:51] LABS: ALT/SGPT 25 U/L (12-78); AST/SGOT 51 U/L (15-37); Albumin 2.3 g/dL (3.4-5.0); Alkaline Phosphatase 101 U/L (45-117); BUN Blood Urea Nitrogen 12 mg/dL (7-18); Bicarbonate 33 mmol/L (21-32); Bilirubin Direct 0.4 mg/dL (0-0.2); Bilirubin Total 0.8 mg/dL (0.2-1.0); Glucose Level 130 mg/dL (74-106); Lipase 62 U/L (73-393); Sodium Level 137 mmol/L (136-145)
[2018-04-18 06:02] LABS: Potassium 2.4 mmol/L (3.5-5.1)
[2018-04-18] MEDS ORDERED: KCL 20 MEQ/100 mL IVPB 20 MEQ/100 ML BAG IV ONE (06:16)
--- NOTE | 2018-04-18 06:18 | ER ---
Nurse's Notes [facility] Name: Teri Hinkle Age: 58 yrs Sex: Female : 1960 Arrival Date: 04/18/2018 Time: 04:35 Bed 4 Private MD: Diagnosis: Drug withdrawal. Chest pain. Dehydration. Persistent vomiting and diarrhea. Hypokalemia Presentation: 04/18 04:39 Presenting complaint: Patient states: Pt states she has been detoxing herself off Somas ea since Friday. Pt reports she has been having chest pain, SOB, n/v, headache and dizziness since then but symptoms have worsened. Transition of care: patient was not received from another setting of care. Onset of symptoms was April 18, 2018. Risk Assessment: Do you want to hurt yourself or someone else? Patient reports no desire to harm self or others. Initial Sepsis Screen: Does the patient meet any 2 criteria? HR > 90 bpm. Does the patient have a suspected source of infection? No. Patient's initial sepsis screen is negative. Care prior to arrival: None. 04:39 Method Of Arrival: EMS: [facility] ea 04:39 Acuity: PRISCILA 3 ea 04:39 Acuity: PRISCILA 2 ea Triage Assessment: 04:43 General: Appears uncomfortable, Behavior is anxious, restless. Pain: Complains of pain ea in chest and abdomen. Neuro: Level of Consciousness is awake, alert, obeys commands, Oriented to person, place, time, situation. Cardiovascular: Heart tones S1 S2 present Patient's skin is warm and dry. Respiratory: Airway is patent Respiratory effort is even, unlabored, Respiratory pattern is regular, symmetrical, Breath sounds are clear bilaterally. GI: Abdomen is non-distended, Bowel sounds present X 4 quads. Reports lower abdominal pain, upper abdominal pain. Derm: Skin is pink, warm \T\ dry. Historical: - Allergies: 04:46 PENICILLINS; ea - Home Meds: 04:46 nortriptyline 50 mg Oral cap 2 caps once daily [Active]; ibuprofen 600 mg Oral tab as ea needed [Active]; clopidogrel 75 mg Oral tab 1 tab once daily [Active]; Celexa 20 mg Oral tab 1 tab once daily [Active]; - PMHx: 04:46 Migraines; Hypertension; Depression; COPD; CHF; ea - PSHx: 04:46 ; Cholecystectomy; ea - Immunization history:: Adult Immunizations up to date. - Social history:: Smoking status: Patient/guardian denies using tobacco. - Ebola Screening: : No symptoms or risks identified at this time. Screenin:45 Abuse screen: Denies threats or abuse. Nutritional screening: No deficits noted. ea Tuberculosis screening: No symptoms or risk factors identified. Fall Risk None identified. Assessment: 04:43 Reassessment: see triage assessment. ea 05:55 Reassessment: Patient and/or family updated on plan of care and expected duration. Pain ea level reassessed. Patient is alert, oriented x 3, equal unlabored respirations, skin warm/dry/pink. 06:31 Reassessment: Patient and/or family updated on plan of care and expected duration. Pain ea level reassessed. Patient is alert, oriented x 3, equal unlabored respirations, skin warm/dry/pink. 07:38 Reassessment: Patient appears in no apparent distress at this time. No changes from la1 previously documented assessment. Patient and/or family updated on plan of care and expected duration. Pain level reassessed. Patient is alert, oriented x 3, equal unlabored respirations, skin warm/dry/pink. Vital Signs: 04:42 BP 99 / 68; Pulse 114; Resp 20; Temp 97.5(O); Pulse Ox 96% on R/A; Weight 99.79 kg; ea Height 5 ft. 2 in. (157.48 cm); Pain 10/10; 06:59 BP 101 / 55; Pulse 104; Resp 20 S; Pulse Ox 95% on 2 lpm NC; jd3 07:38 BP 118 / 77; Pulse 105; Resp 16; Pulse Ox 99% on R/A; la1 08:25 BP 115 / 72; Pulse 106; Resp 20; Pulse Ox 96% on R/A; ph 04:42 Body Mass Index 40.24 (99.79 kg, 157.48 cm) ea ED Course: 04:35 Patient arrived in ED. ds1 04:36 Gerardo Melendez MD is Attending Physician. pkl 04:39 Rosario Rascon, RICHARD is Primary Nurse. ea 04:42 Triage completed. ea 04:47 Patient has correct armband on for positive identification. Bed in low position. Call ea light in reach. Side rails up X2. 04:47 Arm band placed on right wrist. Patient placed in an exam room, on a stretcher, on ea youth nutritional monitor, on pulse oximetry. 04:57 Note: Pt requests meds for dizziness prior to xray.. Radiology exam delayed due to IV sw insertion attempt and/or patient not having appropriate IV at this time. 05:25 Inserted saline lock: 22 gauge in left antecubital area, using aseptic technique. Blood ea collected. 06:02 Notified ED physician of a critical lab result(s). potassium of 2.4 Dr Melendez notified. bb 06:04 Patient moved to radiology via stretcher. sw 06:13 XRAY Abdomen Acute Series In Process Unspecified. EDMS 06:13 X-ray completed. Patient moved back from radiology. sw 06:15 Bo Gray MD is Hospitalizing Provider. pkl 06:59 No provider procedures requiring assistance completed. Patient admitted, IV remains in ea place. Administered Medications: 05:30 Drug: Zofran 4 mg Route: IVP; Site: left antecubital; jd3 06:00 Follow up: Response: No adverse reaction; Nausea is decreased ea 07:00 Follow up: Response: No adverse reaction jd3 05:31 Drug: NS 0.9% 1000 ml Route: IV; Rate: 1000 ml; Site: left antecubital; jd3 05:31 Drug: NS 0.9% 1000 ml Route: IV; Rate: 125 ml/hr; Site: left antecubital; jd3 08:25 Follow up: Response: No adverse reaction; IV Status: Infusion continued upon admission ph 06:17 Drug: Potassium Chloride 20 mEq Route: IV; Rate: calculated rate; Site: left jd3 antecubital; 08:20 Follow up: Response: No adverse reaction; IV Status: Completed infusion ph Outcome: 06:18 Decision to Hospitalize by Provider. pkl 08:29 Patient left the ED. ph 08:29 Admitted to Tele accompanied by tech, via stretcher, with chart. ph 08:29 Condition: stable Signatures: Dispatcher [employer] EDMS Gerardo Melendez MD MD pkl Sanford, Demi ds1 Josselin Laura RN RN bb Attema, Lee, RN RN la1 Hall, Patricia, RN RN ph Warren, Shannon sw Antunez, Elena, RN RN ea Davies Jasper, RN RN jd3
--- NOTE | 2018-04-18 06:18 | EDPHYS ---
Physician Documentation [facility] Name: Teri Hinkle Age: 58 yrs Sex: Female : 1960 Arrival Date: 04/18/2018 Time: 04:35 Bed 4 Private MD: ED Physician Gerardo Melendez HPI: 04/18 04:49 This 58 yrs old Female presents to ER via EMS with complaints of Withdrawal. pkl 04:49 The patient presents to the emergency department with nausea, that is moderate, pkl vomiting, diarrhea. Onset: The symptoms/episode began/occurred 5 day(s) ago, and became worse today. Associated signs and symptoms: Pertinent positives: chest pain, shortness of breath and dizziness. Patient said she was detox ing herself off Somas 5 days ago. Historical: - Allergies: 04:46 PENICILLINS; ea - Home Meds: 04:46 nortriptyline 50 mg Oral cap 2 caps once daily [Active]; ibuprofen 600 mg Oral tab as ea needed [Active]; clopidogrel 75 mg Oral tab 1 tab once daily [Active]; Celexa 20 mg Oral tab 1 tab once daily [Active]; - PMHx: 04:46 Migraines; Hypertension; Depression; COPD; CHF; ea - PSHx: 04:46 ; Cholecystectomy; ea - Immunization history:: Adult Immunizations up to date. - Social history:: Smoking status: Patient/guardian denies using tobacco. - Ebola Screening: : No symptoms or risks identified at this time. ROS: 04:49 Eyes: Negative for injury, pain, redness, and discharge, ENT: Negative for injury, pkl pain, and discharge, Neck: Negative for injury, pain, and swelling. 04:49 Cardiovascular: Positive for chest pain. 04:49 Respiratory: Positive for shortness of breath. 04:49 Abdomen/GI: Positive for nausea, vomiting, and diarrhea, abdominal cramps. 04:49 Back: Negative for acute changes. 04:49 : Negative for urinary symptoms. 04:49 MS/extremity: Negative for acute changes. 04:49 Skin: Negative for rash. 04:49 Neuro: Negative for altered mental status. Exam: 04:49 Head/Face: Normocephalic, atraumatic. Eyes: Pupils equal round and reactive to light, pkl extra-ocular motions intact. Lids and lashes normal. Conjunctiva and sclera are non-icteric and not injected. Cornea within normal limits. Periorbital areas with no swelling, redness, or edema. ENT: Nares patent. No nasal discharge, no septal abnormalities noted. Tympanic membranes are normal and external auditory canals are clear. Oropharynx with no redness, swelling, or masses, exudates, or evidence of obstruction, uvula midline. Mucous membranes moist. Neck: Trachea midline, no thyromegaly or masses palpated, and no cervical lymphadenopathy. Supple, full range of motion without nuchal rigidity, or vertebral point tenderness. No Meningismus. Chest/axilla: Normal chest wall appearance and motion. Nontender with no deformity. No lesions are appreciated. Cardiovascular: Regular rate and rhythm with a normal S1 and S2. No gallops, murmurs, or rubs. Normal PMI, no JVD. No pulse deficits. Respiratory: Lungs have equal breath sounds bilaterally, clear to auscultation and percussion. No rales, rhonchi or wheezes noted. No increased work of breathing, no retractions or nasal flaring. Abdomen/GI: Soft, non-tender, with normal bowel sounds. No distension or tympany. No guarding or rebound. No evidence of tenderness throughout. Back: No spinal tenderness. No costovertebral tenderness. Full range of motion. Skin: Warm, dry with normal turgor. Normal color with no rashes, no lesions, and no evidence of cellulitis. MS/ Extremity: Pulses equal, no cyanosis. Neurovascular intact. Full, normal range of motion. Neuro: Awake and alert, GCS 15, oriented to person, place, time, and situation. Cranial nerves II-XII grossly intact. Motor strength 5/5 in all extremities. Sensory grossly intact. Cerebellar exam normal. Normal gait. Vital Signs: 04:42 BP 99 / 68; Pulse 114; Resp 20; Temp 97.5(O); Pulse Ox 96% on R/A; Weight 99.79 kg; ea Height 5 ft. 2 in. (157.48 cm); Pain 10/10; 06:59 BP 101 / 55; Pulse 104; Resp 20 S; Pulse Ox 95% on 2 lpm NC; jd3 07:38 BP 118 / 77; Pulse 105; Resp 16; Pulse Ox 99% on R/A; la1 08:25 BP 115 / 72; Pulse 106; Resp 20; Pulse Ox 96% on R/A; ph 04:42 Body Mass Index 40.24 (99.79 kg, 157.48 cm) ea MDM: 04:36 Patient medically screened. pkl 06:07 Data reviewed: vital signs, nurses notes, lab test result(s), EKG, radiologic studies, pkl plain films. 04/18 04:44 Order name: Basic Metabolic Panel; Complete Time: 06:07 pkl 04/18 04:44 Order name: CBC with Diff; Complete Time: 19:02 pkl 04/18 04:44 Order name: Creatinine for Radiology; Complete Time: 05:56 pkl 04/18 04:44 Order name: Hepatic Function; Complete Time: 06:07 pkl 04/18 04:44 Order name: Lipase; Complete Time: 06:07 pkl 04/18 04:44 Order name: Stool Culture pkl 04/18 04:46 Order name: Troponin (emerg Dept Use Only); Complete Time: 05:56 pkl 04/18 04:46 Order name: XRAY Abdomen Acute Series; Complete Time: 19:02 pkl 04/18 05:38 Order name: Manual Differential; Complete Time: 19:02 EDMS 04/18 07:19 Order name: Lactate; Complete Time: 19:02 EDMS 04/18 07:53 Order name: Procalcitonin; Complete Time: 19:02 EDMS 04/18 04:44 Order name: IV Saline Lock; Complete Time: 05:31 pkl 04/18 04:44 Order name: Labs collected and sent; Complete Time: 05:31 pkl 04/18 04:46 Order name: EKG; Complete Time: 04:46 pkl Administered Medications: 05:30 Drug: Zofran 4 mg Route: IVP; Site: left antecubital; jd3 06:00 Follow up: Response: No adverse reaction; Nausea is decreased ea 07:00 Follow up: Response: No adverse reaction jd3 05:31 Drug: NS 0.9% 1000 ml Route: IV; Rate: 1000 ml; Site: left antecubital; jd3 05:31 Drug: NS 0.9% 1000 ml Route: IV; Rate: 125 ml/hr; Site: left antecubital; jd3 08:25 Follow up: Response: No adverse reaction; IV Status: Infusion continued upon admission ph 06:17 Drug: Potassium Chloride 20 mEq Route: IV; Rate: calculated rate; Site: left jd3 antecubital; 08:20 Follow up: Response: No adverse reaction; IV Status: Completed infusion ph Disposition: 04/18/18 06:18 Hospitalization ordered by Bo Gray for Observation. Preliminary diagnosis is Drug withdrawal. Chest pain. Dehydration. Persistent vomiting and diarrhea. Hypokalemia. - Bed requested for Telemetry/MedSurg (observation). - Status is Observation. ph - Condition is Stable. - Problem is new. - Symptoms are unchanged. UTI on Admission? No Signatures: Dispatcher [employer] EDMS Gerardo Melendez MD MD pkJosselin Haider RN RN Shari Luna RN RN Rosario Black, RN RN Jasper Zee RN Tonya Espino Corrections: (The following items were deleted from the chart) 06:25 06:18 Hospitalization Ordered by Bo Gray MD for Observation. Preliminary eb diagnosis is Drug withdrawal. Chest pain. Dehydration. Persistent vomiting and diarrhea. Hypokalemia. Bed requested for Telemetry/MedSurg (observation). Status is Observation. Condition is Stable. Problem is new. Symptoms are unchanged. UTI on Admission? No. pkl 08:29 06:25 04/18/2018 06:18 Hospitalization Ordered by Bo Gray MD for Observation. ph Preliminary diagnosis is Drug withdrawal. Chest pain. Dehydration. Persistent vomiting and diarrhea. Hypokalemia. Bed requested for Telemetry/MedSurg (observation). Status is Observation. Condition is Stable. Problem is new. Symptoms are unchanged. UTI on Admission? No. eb
[2018-04-18 06:22] LABS: Anisocytosis 3+; Blood Morphology Comment NOTED (NOT SEEN); Platelet Estimate ADEQ
[2018-04-18 06:23] LABS: Hypochromasia 3+; Target Cells 3+
--- NOTE | 2018-04-18 06:57 | P.HP ---
Certification for Inpatient Patient admitted to: Observation With expected LOS: <2 Midnights Practitioner: I am a practitioner with admitting privileges, knowledge of patient current condition, hospital course, and medical plan of care. Services: Services provided to patient in accordance with Admission requirements found in Title 42 Section 412.3 of the Code of Federal Regulations Patient History Date of Service: 04/18/18 Reason for admission: Abdominal pain, nausea vomiting, chest pain History of Present Illness: Ms Hinkle is a 58-year-old woman with history of hypertension, migraines, COPD, who about 1 week ago she stopped taking Vicodin and Soma. She said that she was taking significant amount of both of these medication. She start taking because finish her pills and did not refilled them. Since so she has been more lethargic, with abdominal pain. Since 4 days ago, she has been vomiting and having diarrhea. She denied any fever but has had chills. She is also complaining of chest pain, which is constant, exacerbated when she vomiting. Lab work remarkable for leukocytosis with bandemia, elevated troponin I, anemia (chronic) and electrolyte disturbance. EKG shows sinus rhythm about 100 bpm, with isolated PAC's without ST-T abnormality. Allergies Penicillins Adverse Reaction (Mild, Verified 02/09/18 21:35) Itching/Hives/Rash Home medications list reviewed: Yes Home Medications: Citalopram [Celexa*] 20 mg PO DAILY 01/21/18 Furosemide [Lasix*] 20 mg PO DAILY 01/21/18 Nortriptyline HCl [Pamelor] 100 mg PO BEDTIME 01/21/18 Cefuroxime [Ceftin] 250 mg PO BID #14 tab 02/10/18 Ondansetron HCl [Zofran] 4 mg PO DAILY PRN #10 tablet 02/10/18 - Past Medical/Surgical History Diabetic: No -: COPD -: CHF -: Depression -: HTN -: Migraines -: Cholecystectomy -: - Family History Family History: Reviewed- Non-Contributory - Social History Smoking Status: Former smoker Alcohol use: No CD- Drugs: No Caffeine use: Yes Place of Residence: Home Review of Systems 10-point ROS is otherwise unremarkable Physical Examination - Physical Exam General: Alert, In no apparent distress HEENT: Atraumatic, PERRLA, Mucous membr. moist/pink, EOMI, Sclerae nonicteric Neck: Supple, 2+ carotid pulse no bruit, No LAD, Without JVD or thyroid abnormality Respiratory: Clear to auscultation bilaterally, Normal air movement Cardiovascular: Regular rate/rhythm, Normal S1 S2 Gastrointestinal: Hyperactive, Tenderness (Diffuse abdomen tenderness to palpation) Musculoskeletal: Tenderness (Chest wall tenderness to palpation, reproducing complaining chest pain) Integumentary: No rashes Neurological: Normal speech, Normal strength at 5/5 x4 extr, Normal tone, Normal affect Lymphatics: No axilla or inguinal lymphadenopathy - Studies Laboratory Data (last 24 hrs) 04/18/18 05:12: Creatinine 0.60 04/18/18 05:12: WBC 17.3 H, Hgb 8.5 L, Hct 25.6 L, Plt Count 344 04/18/18 05:12: Sodium 137, Potassium 2.4 L*, BUN 12, Creatinine 0.60, Glucose 130 H, Total Bilirubin 0.8, AST 51 H, ALT 25, Alkaline Phosphatase 101, Lipase 62 L Assessment and Plan - Problems (Diagnosis) (1) Chest pain Current Visit: Yes Status: Acute Qualifiers: Chest pain type: intercostal pain Qualified Code(s): R07.82 - Intercostal pain (2) Hypokalemia Current Visit: Yes Status: Acute (3) Abdominal pain Onset Date: 02/10/18 Current Visit: No Status: Resolved Qualifiers: Abdominal location: generalized Qualified Code(s): R10.84 - Generalized abdominal pain (4) Intractable nausea and vomiting Current Visit: No Status: Resolved Qualifiers: Vomiting type: unspecified Qualified Code(s): R11.2 - Nausea with vomiting , unspecified - Plan The patient will be admitted to the hospital due to abdominal pain associated with nausea, vomiting and diarrhea. She has leukocytosis with bandemia, no fever. Differential diagnosis include opioid withdrawal, colitis, pyelonephritis. I have ordered CT abdomen and pelvis with contrast. Will keep the patient NPO, continue fluid resuscitation, order symptomatic medication for nausea and vomiting. Check C diff, consult meal grinder tender for chest pain with abnormal cardiac enzymes. Replace electrolytes as needed by protocol. - Advance Directives Does patient have a Living Will: No Does patient have a Durable POA for Healthcare: No - Code Status/Comfort Care Code Status Assessed: Yes Code Status: Full Code
--- NOTE | 2018-04-18 07:49 | EKG ---
Test Date: 2018-04-18 Test Time: 04:44:06 Weed Burner: DARYL MEASUREMENT RESULTS: Intervals: Rate: 109 CO: 128 QRSD: 90 QT: 336 QTc: 452 [place]: P: CO: 128 QRS: 142 T: 140 INTERPRETIVE STATEMENTS: Sinus tachycardia with occasional premature ventricular complexes Low voltage QRS Left posterior fascicular block Nonspecific ST and T wave abnormality Abnormal ECG Compared to ECG 02/09/2018 16:59:43 Ventricular premature complex(es) now present Low QRS voltage now present Left posterior fascicular block now present ST (T wave) deviation now present Sinus rhythm no longer present Electronically Signed On 04-18-18 07:48:36 CDT by Nikhil Montes De Oca
[2018-04-18] MEDS ORDERED: MORPHINE 2 MG/ML SYR IM PRN (07:54)
[2018-04-18] MEDS: ONDANSETRON 4 MG/2 ML VIAL IV PRN ×3 (08:02→20:30)
[2018-04-18] MEDS ORDERED: MORPHINE 4 MG/ML SYR ONE (08:04)
[2018-04-18] MEDS ORDERED: MORPHINE 4 MG/ML SYR IM PRN (09:00)
--- NOTE | 2018-04-18 09:29 | RAD REPORT ---
EXAM DESCRIPTION: RAD - Abdomen Acute Series - 04/18/2018 6:13 am CLINICAL HISTORY: Abdominal pain FINDINGS: Free air is not seen beneath the diaphragm. The lungs appear clear of acute infiltrate The bowel gas pattern is unremarkable
[2018-04-18 10:03] LABS: Urine Appearance CLOUDY; Urine Blood 1+ (NEG); Urine Color DK YELLOW; Urine Glucose NEGATIVE (NEG); Urine Protein 2+ (NEG); Urine Specific Gravity >=1.030 (1.005-1.030)
[2018-04-18 10:04] LABS: Urine Microscopic Reflex ORDER UMIC
[2018-04-18] MEDS: ENOXAPARIN 40 MG/0.4 ML SQ SCH (10:07)
[2018-04-18] MEDS: NA CHLORIDE 0.9% 1,000 ML IV SCH ×4 (10:08→23:54)
[2018-04-18] MEDS: ACETAMINOPHEN 500 MG TAB PO PRN (10:09)
[2018-04-18] MEDS: KCL 20 MEQ/100 mL IVPB 20 MEQ/100 ML BAG IV SCH ×5 (10:10→22:38)
[2018-04-18 10:20] LABS: Urine Bacteria LOADED /HPF (<20); Urine Culture Reflex Order REFLEXED; Urine RBC <5 /HPF (NONE SEEN)
--- NOTE | 2018-04-18 10:29 | RAD REPORT ---
EXAM DESCRIPTION: CT - Abdomen Pelvis W Contrast - 04/18/2018 8:41 am CLINICAL HISTORY: Abdominal pain. Vomiting COMPARISON: January 2018 TECHNIQUE: Computed axial tomography of the abdomen and pelvis was obtained. 100 cc Isovue-300 is ad ministered intravenously. Oral contrast was given. All CT scans are performed using dose optimization technique as appropriate and may include automated exposure control or mA/KV adjustment according to patient size. FINDINGS: Liver has a diminished attenuation. Spleen, pancreas and adrenals are unremarkable. Tiny nonobstructing renal calculi are seen. Low-density areas are present throughout the right kidney . Portions of the colon have a moderately thickened wall. The wall of the proximal jejunum is mildly th ickened Small to moderate hiatal hernia is present Minimal ascites is noted IMPRESSION: Low-density areas within the right kidney probably indicating marked pyelonephritis Moderate colitis
[2018-04-18 10:58] VITALS: BMI 40.0
[2018-04-18 11:57] LABS: Urine Bilirubin NEGATIVE (NEG)
[2018-04-18] MEDS ORDERED: PNEUMOCOCCAL VACCINE 0.5 ML IMVAC ONE (12:00)
[2018-04-18] MEDS ORDERED: INFLUENZA VACCINE (for 3y+) 0.5 ML DOSE IMVAC ONE (12:00)
[2018-04-18] MEDS: METRONIDAZOLE 500mg IVPB 500 MG/100 ML BAG IV SCH (13:48)
[2018-04-18] MEDS: CIPROFLOXACIN 400mg IV 400 MG/200 ML BAG IV SCH (13:53)
[2018-04-18] MEDS ORDERED: POTASSIUM CL 40 MEQ in NA CHLORIDE 0.9% 500 ML IV SCH (14:00)
[2018-04-18] MEDS: TRAMADOL HCL 50 MG TAB PO PRN ×2 (14:39→20:23)
[2018-04-18] MEDS: NORTRIPTYLINE HCL 25 MG CAP PO SCH (20:24)
[2018-04-19] MEDS: METRONIDAZOLE 500mg IVPB 500 MG/100 ML BAG IV SCH ×3 (00:04→18:26)
[2018-04-19] MEDS: ACETAMINOPHEN 500 MG TAB PO PRN ×3 (00:04→17:23)
[2018-04-19] MEDS ORDERED: MORPHINE 2 MG/ML SYR IV ONE (00:21)
[2018-04-19 04:47] LABS: Absolute Lymphocytes (CBC) 1.1 K/uL (0.7-4.9); Absolute Monocytes 1.3 K/uL (0.1-1.3); Absolute Neutrophil 9.5 K/uL (1.8-8.0); Basophils % 0.1 % (0-1.3); Eosinophils % 0.1 % (0-4.4); Lymphocytes % 9.5 % (15.3-44.8); MCH 26.5 pg (27.0-35.0); MCV 80.9 fL (80-100); MPV 8.6 fL (7.6-11.3); Monocytes % 10.8 % (3.3-12.3); RBC Red Blood Cell Count 2.84 M/uL (3.86-4.86)
[2018-04-19 05:05] LABS: ALT/SGPT 26 U/L (12-78); AST/SGOT 71 U/L (15-37); Alkaline Phosphatase 83 U/L (45-117); BUN Blood Urea Nitrogen 15 mg/dL (7-18); Bicarbonate 31 mmol/L (21-32); Bilirubin Total 0.6 mg/dL (0.2-1.0); Glucose Level 100 mg/dL (74-106); Protein, Total 5.9 g/dL (6.4-8.2); Sodium Level 138 mmol/L (136-145)
[2018-04-19 05:06] LABS: Potassium 2.9 mmol/L (3.5-5.1)
[2018-04-19] MEDS: CIPROFLOXACIN 400mg IV 400 MG/200 ML BAG IV SCH ×2 (05:11→18:26)
[2018-04-19] MEDS: KCL 20 MEQ/100 mL IVPB 20 MEQ/100 ML BAG IV SCH ×3 (06:12→10:00)
[2018-04-19] MEDS: ONDANSETRON 4 MG/2 ML VIAL IV PRN (06:13)
[2018-04-19] MEDS: NA CHLORIDE 0.9% 1,000 ML IV SCH (06:13)
[2018-04-19] MEDS: TRAMADOL HCL 50 MG TAB PO PRN (08:40)
[2018-04-19] MEDS: ENOXAPARIN 40 MG/0.4 ML SQ SCH (08:44)
--- NOTE | 2018-04-19 10:23 | EKG ---
Test Date: 2018-04-18 Test Time: 14:30:27 Substitute Bus Driver: NATY MEASUREMENT RESULTS: Intervals: Rate: 102 NE: 134 QRSD: 86 QT: 364 QTc: 474 [place]: P: 75 NE: 134 QRS: 70 T: 72 INTERPRETIVE STATEMENTS: Sinus tachycardia Otherwise normal ECG Compared to ECG 04/18/2018 04:44:06 Ventricular premature complex(es) no longer present Left posterior fascicular block no longer present ST (T wave) deviation no longer present Electronically Signed On 04-19-18 10:21:31 CDT by Nikhil Montes De Oca
[2018-04-19] MEDS ORDERED: INFLUENZA VACCINE (for 3y+) 0.5 ML DOSE IMVAC ONE (12:00)
[2018-04-19] MEDS ORDERED: PNEUMOCOCCAL VACCINE 0.5 ML IMVAC ONE (12:00)
[2018-04-19] MEDS ORDERED: FUROSEMIDE 40 MG/4 ML VIAL ONE (12:44)
[2018-04-19] MEDS ORDERED: MORPHINE 2 MG/ML SYR ONE (12:44)
[2018-04-19] MEDS: IPRATROPIUM BROM 0.5MG/2.5ML NEB SCH ×3 (12:54→20:11)
[2018-04-19] MEDS: ALBUTEROL 2.5 MG/3 ML NEB SOL NEB SCH ×3 (12:54→20:11)
[2018-04-19] MEDS ORDERED: ALBUTEROL 2.5 MG/3 ML NEB SOL ONE (13:00)
[2018-04-19] MEDS ORDERED: IPRATROPIUM BROM 0.5MG/2.5ML ONE (13:00)
[2018-04-19 13:39] LABS: Potassium 3.4 mmol/L (3.5-5.1); Troponin I 0.03 ng/mL (0.0-0.045)
--- NOTE | 2018-04-19 14:23 | RAD REPORT ---
EXAM DESCRIPTION: RAD - Chest Single View - 04/19/2018 2:06 pm CLINICAL HISTORY: sob Chest pain. COMPARISON: Abdomen Acute Series dated 04/18/2018; Chest Single View dated 02/09/2018; Chest Single Vi ew dated 01/18/2018 FINDINGS: Portable technique limits examination quality. 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 The heart is mildly enlarged in size. No displaced fractures.
--- NOTE | 2018-04-19 16:19 | CON ---
Date of Consultation: 04/19/2018 Reason For Consultation: Chest pain, elevated troponin. History Of Present Illness: Ms. Hinkle is a 58-year-old woman, who was just in the hospital in January for severe colitis and pyelonephritis. Had an echocardiogram that was perfectly normal. Her EKG showed sinus tach then and sinus tach now, no changes. Came in with withdrawal from the [place] th at she on her own and nausea. Did not really have much in way of chest pain as far as I a m concerned. She had mid-epigastric pain. She had nausea. She felt weak. She had another CT, that showed exactly the same thing with colitis and pyelonephritis. I do not think this was treated adeq uately by her because of compliance issues. She has a history of COPD, hypertension, depression, and migraine. She is supposed to have history of CHF, but her echocardiogram in January of 2018 was normal without any systolic or diastolic dysfunction. Past Medical History: As stated above. Allergies: INCLUDE PENICILLIN. Review of Systems: Negative. Social History: Negative. Family History: Negative. Medications: At home include Plavix, Celexa, Motrin, and nortriptyline. Physical Examination: General: She appeared much older than her stated age. Vital signs: Stable. She was afebrile. She was in sinus rhythm. HEENT: Negative. Neck: Supple with no bruit. Chest: Clear to auscultation and percussion. Cardiac: Revealed a regular rhythm and rate without murmurs, gallops, or rubs. Abdomen: Benign. Extremities: Revealed no clubbing, cyanosis, or edema. Diagnostic Data: EKG was nonspecific. Chest x-ray was negative. CT of the abdomen showed colitis a nd pyelonephritis. She had some small stones as well consistent with nephrolithiasis. Her troponin was slightly elevated. Impression And Plan: 1.Very atypical chest pain. I think it is gastrointestinal. 2.History of chronic obstructive pulmonary disease. 3.Normal echocardiogram in January of 2018. 4.Hypertension. 5.Depression. 6.Migraine. Ms. Hinkle has not had a stress test within the last few years. I recommend we do another stress test on her in the morning just to rule out CAD, although I doubt this was causing her symptoms. CARY/MODL Voice ID: [id number] Report ID: [id number]
[2018-04-19] MEDS ORDERED: VANCOMYCIN/NS 1 gm 1 GM/250 ML BAG IV SCH (17:30)
[2018-04-19] MEDS ORDERED: POTASSIUM CL SA 10 MEQ TAB PO ONE (19:22)
--- NOTE | 2018-04-19 19:55 | PN ---
Subjective: Currently, patient is not feeling well. She felt chest tightness, had EKG done and was nonspecific. She is short of breath and she had some clear liquid earlier. There was no abdominal pain. Review of Systems: Otherwise negative. Objective: Vital Signs: Currently, blood pressure 139/72, respiratory rate 20 , pulse 111, temperature 98.8. General: She is alert, oriented. She is in mild distress. HEENT: Atraumatic, normocephalic. Oral mucosa is dry. Neck: Supple. No JVD. No carotid bruits. Chest: With basilar crackles in the bases. No expiratory wheezing. Heart: Regular rate and rhythm. Tachy. No gallop or murmur. Abdomen: Morbidly obese. No guarding or rebound. Positive bowel sounds. Extremities: No clubbing, no cyanosis. Trace edema. Skin: Warm, dry with mild bruising. Left upper arm with 1-cm deep wound with eschar. There is no discharge or bleeding. Laboratory Data: Today showed hemoglobin 7.5, white blood cells down from 17 to 11.9, platelets 304. Chemistry: Potassium of 2.9, calcium 7.1. AST of 71. Cardiac enzyme yesterday at 0.06, today at 0.04. Albumin at 2. Assessment And Plan: 1. Chest pain with progressive shortness of breath ? volume overload. I will proceed with x-ray. We will continue checking serial cardiac enzymes. So far, EKG was nonspecific. Cardiac enzyme slightly abnormal. I think patient is volume overloaded. I will discontinue IV fluids. Received IV Lasix 40, 2 mg of morphine. Repeat chest x-ray today. Check BNP as well. If the patient continued to be uncomfortable, we may have to consider cardiology consult. 2. Hypokalemia, severe. We will proceed with potassium protocol to replace her potassium today at 2.9. 3. Colitis on CT of the abdomen and pelvis with sign of thickened colon and colitis. We will continue IV antibiotic with Cipro and Flagyl. The patient's culture showed gram-negative rods in the blood as well as gram-negative rods in the urine. No fever or chills. White blood cells trending down from 17.3 to 11.9. 4. Microcytic anemia. Hemoglobin dropped from 8.5 to 7.5. I will check iron profile. I will check stool occult blood to make sure patient is not bleeding. I will transfuse 1 unit of blood today. 5. Intractable nausea, vomiting, resolved. The patient is able to tolerate clear liquid diet. 6. C diff , will stat patient on oral vancomycine MT/MODL Voice ID: [id number] Report ID: [id number] MTDD
[2018-04-19] MEDS: NORTRIPTYLINE HCL 25 MG CAP PO SCH (20:58)
[2018-04-19] MEDS ORDERED: NA CHLORIDE 0.9% 100 ML IV ONE (21:52)
[2018-04-20] MEDS: ALBUTEROL 2.5 MG/3 ML NEB SOL NEB SCH ×3 (01:06→07:48)
[2018-04-20] MEDS: IPRATROPIUM BROM 0.5MG/2.5ML NEB SCH ×3 (01:06→07:48)
[2018-04-20] MEDS: METRONIDAZOLE 500mg IVPB 500 MG/100 ML BAG IV SCH ×2 (01:47→10:10)
[2018-04-20] MEDS: TRAMADOL HCL 50 MG TAB PO PRN ×3 (02:43→20:08)
[2018-04-20] MEDS ORDERED: KETOROLAC 30 MG/ML INJ IV ONE (04:23)
[2018-04-20] MEDS: ACETAMINOPHEN 500 MG TAB PO PRN (04:52)
[2018-04-20 04:56] LABS: Hematocrit 25.1 % (36.0-45.0)
[2018-04-20] MEDS: ONDANSETRON 4 MG/2 ML VIAL IV PRN ×2 (04:57→16:29)
[2018-04-20 05:07] LABS: BUN Blood Urea Nitrogen 11 mg/dL (7-18); Bicarbonate 29 mmol/L (21-32); Glucose Level 100 mg/dL (74-106); Potassium 3.5 mmol/L (3.5-5.1); Sodium Level 137 mmol/L (136-145)
[2018-04-20] MEDS ORDERED: POTASSIUM CL SA 10 MEQ TAB PO ONE (05:32)
[2018-04-20] MEDS: CIPROFLOXACIN 400mg IV 400 MG/200 ML BAG IV SCH ×2 (06:00→17:15)
--- NOTE | 2018-04-20 07:30 | EKG ---
Test Date: 2018-04-19 Test Time: 12:02:04 Mower Operator: NATY MEASUREMENT RESULTS: Intervals: Rate: 101 MD: 134 QRSD: 84 QT: 346 QTc: 448 [place]: P: 74 MD: 134 QRS: 73 T: 63 INTERPRETIVE STATEMENTS: Sinus tachycardia Otherwise normal ECG Compared to ECG 04/18/2018 14:30:27 No significant changes Electronically Signed On 04-20-18 07:30:03 CDT by Kyle Romano
[2018-04-20] MEDS ORDERED: IPRATROPIUM BROM 0.5MG/2.5ML NEB PRN (08:12)
[2018-04-20] MEDS ORDERED: ALBUTEROL 2.5 MG/3 ML NEB SOL NEB PRN (08:13)
[2018-04-20] MEDS ORDERED: REGADENOSON 0.4 MG/5 ML SYR IV ONE (08:45)
[2018-04-20] MEDS: ENOXAPARIN 40 MG/0.4 ML SQ SCH (10:09)
[2018-04-20] MEDS: VANCOMYCIN ORAL SOLN 250 MG/5 ML OSYR PO SCH ×4 (10:10→23:56)
--- NOTE | 2018-04-20 10:58 | TREADPHA ---
DX: CHEST PAIN Date of Study: 04/20/18 Ht: 5 2 Wt: 219 lb 0 oz Consulting Physician: MIO MEDICATIONS: TYLENOL, PROVENTIL, LOVENOX, CIPRO, ZOFRAN, ULTRAM HISTORY: 58 YEARE OLD FEMALE WITH COMPLAINTS OF CHEST PAIN. MEDICAL HISTORY OF MIGRAINES, HYPERTENSION, DEPRESSION, CONGESTIVE HEART FAILURE, CHRONIC OBSTRUCTIVE PULMONARY DISEASE. PHYSICIAL EXAMINATION: RESTING B.P.: 111/65 RESTING H.R.: 92 RESTING EKG: NORMAL. PROTOCOL: LEXISCAN EXERCISE TIME: 3:30 B.P. AT [place] STRESS: 115/69 IMPRESSION: LEXISCAN INJECTED, CARDIOLITE INJECTED, PER PROTOCOL SEE NUCLEAR MEDICINE REPORT. NO SUPRA VENTRICULAR TACHYCARDIA, NO VENTRICULAR TACHYCARDIA, NO PREMATURE VENTRICULAR COMPLEXES. NON DIAGNOSTIC EKG WITH LEXISCAN STRESS.
[2018-04-20] MEDS: ONDANSETRON 4 MG (ODT) TAB PO PRN (11:58)
--- NOTE | 2018-04-20 13:10 | RAD REPORT ---
EXAM DESCRIPTION: NM - Rest Stress Cardiac Imaging - 04/20/2018 1:02 pm CLINICAL HISTORY: Chest pain COMPARISON: None. TECHNIQUE: The patient was administered 10.9 mCi of Tc 99m Sestamibi prior to resting SPECT imaging of the heart. The patient was then administered 30.8 mCi of Tc 99m Sestamibi following exercise or ph armacologic stress. Multiplanar SPECT images were reviewed. FINDINGS: The end diastolic volume is 106 ml, the end systolic volume is 42 ml, and the ejection fra ction is 60 %. No stress-induced ischemic changes are identified. There is a small fixed defect inferior wall at the apex unchanged between rest and stress imaging. This is favored to be diaphragmatic attenuation елена fact but could represent scarring. No other areas of measurable scarring and no other sites of possib le stress ischemia. IMPRESSION: No stress-induced ischemia identifiable. Small fixed defect in the inferior wall at the apex is favored to be attenuation artifact rather than scarring. End-diastolic volume 106 mL. Ejection fraction 60%.
[2018-04-20] MEDS ORDERED: MORPHINE 2 MG/ML SYR IM ONE (14:00)
[2018-04-20] MEDS: COLLAGENASE 30 GM OINTMENT TOP SCH (16:29)
--- NOTE | 2018-04-20 19:17 | PN ---
Date of Progress Note: 04/20/2018 Subjective: The patient seen and examined, chart reviewed and case discussed with RN and Dr. Reddy . The patient still somewhat confused, but improving on isolation for C diff. Review of Systems: Negative except as above. Medications: List reviewed. Objective: Vital Signs: Temperature 98.1, heart rate 92, blood pressure 106/66, respirations 16, O2 93% on 2 L via nasal cannula. General: Awake, alert, oriented x2. Some mild distress, ill-appearing obese female. CV: S1, S2. No murmurs. Peripheral pulses present. Respiratory: Moving air well bilaterally. No wheezing. Gastrointestinal: Abdomen is soft, nontender, nondistended. Positive bowel sounds. No guarding or rigidity. Extremities: No clubbing, cyanosis, edema. Neurologic: Nonfocal. Laboratory Data: Sodium 137, potassium 3.5, chloride 99, CO2 29, BUN 11, creatinine 0.6, glucose 100 , calcium 7.3, H and H 8.3 and 25.1. Urine cultures growing E coli and Streptococcus agalactiae. Se nsitivities reviewed. C diff assay is positive. Blood cultures pending. No growth to date. Pharma cological stress test, no premature PVCs. Nondiagnostic EKG with Lexiscan stress. Nuclear medicine scan shows no stress-induced ischemia. Small fixed defect in the inferior wall at the apex is favore d to be attenuation artifact rather than scarring. EF 60%. Assessment: A 58-year-old female with: 1.Chest pain with progressive shortness of breath, possible volume overload. Ejection fraction 60%. Stress test was negative. 2.Hypokalemia, severe. We will replace and monitor. We will check magnesium level. 3.Colitis. Continue IV antibiotics. Blood culture preliminary shows gram-negative rods. ID and se nsitivity pending. 4.Pyelonephritis. Follow up on urine culture. 5.Microcytic anemia. Check iron levels. Check occult blood. The patient has been transfused 1 uni t PRBCs. Monitor H and H, transfuse as needed. 6.Intractable nausea and vomiting, improved. 7.Clostridium difficile colitis. Start the patient on oral vancomycin. 8.Morbid obesity. Body mass index 40. 9.Acute metabolic encephalopathy, likely secondary to pyelonephritis and colitis, improving. 10.Chronic obstructive pulmonary disease. We will continue nebulizers. 11.Gastrointestinal and deep venous thrombosis prophylaxis addressed. 12.Congestive heart failure, diastolic dysfunction. Continue home medications. Plan: Continue current treatment. CIELO Voice ID: [id number] Report ID: [id number]
[2018-04-20] MEDS: NORTRIPTYLINE HCL 25 MG CAP PO SCH (20:07)
[2018-04-21] MEDS: CIPROFLOXACIN 400mg IV 400 MG/200 ML BAG IV SCH (04:44)
[2018-04-21 04:50] LABS: BUN Blood Urea Nitrogen 6 mg/dL (7-18); Bicarbonate 29 mmol/L (21-32); Glucose Level 108 mg/dL (74-106); Potassium 3.7 mmol/L (3.5-5.1); Sodium Level 138 mmol/L (136-145)
[2018-04-21 05:25] LABS: Absolute Lymphocytes (CBC) 1.7 K/uL (0.7-4.9); Absolute Monocytes 1.4 K/uL (0.1-1.3); Absolute Neutrophil 6.3 K/uL (1.8-8.0); Basophils % 0.6 % (0-1.3); Eosinophils % 1.5 % (0-4.4); Hematocrit 24.8 % (36.0-45.0); Lymphocytes % 17.3 % (15.3-44.8); MCH 26.6 pg (27.0-35.0); MCV 81.8 fL (80-100); MPV 9.1 fL (7.6-11.3); RBC Red Blood Cell Count 3.03 M/uL (3.86-4.86)
[2018-04-21] MEDS: VANCOMYCIN ORAL SOLN 250 MG/5 ML OSYR PO SCH ×4 (05:39→23:27)
[2018-04-21] MEDS: FUROSEMIDE 40 MG TABLET PO SCH ×2 (09:00→12:31)
[2018-04-21] MEDS ORDERED: COLLAGENASE 30 GM OINTMENT TOP SCH (09:00)
[2018-04-21] MEDS: COLLAGENASE 30 GM OINTMENT TOP SCH (09:00)
[2018-04-21] MEDS ORDERED: POTASSIUM 25 MEQ EFFERV TAB PO ONE (09:00)
[2018-04-21] MEDS: ENOXAPARIN 40 MG/0.4 ML SQ SCH (09:41)
[2018-04-21] MEDS ORDERED: Ringers Lactate 1,000 ML IV ONE (09:45)
[2018-04-21] MEDS ORDERED: FENTANYL CITR 100 MCG/2 ML ONE (10:00)
[2018-04-21] MEDS ORDERED: PROPOFOL 200 MG/20 ML VIAL IV ONE (10:00)
[2018-04-21] MEDS ORDERED: LIDOCAINE 2% MPF 5 ML VIAL ONE (10:01)
[2018-04-21] MEDS ORDERED: MIDAZOLAM HCL 2 MG/2 ML INJ ONE (10:01)
[2018-04-21] MEDS ORDERED: ONDANSETRON 4 MG/2 ML VIAL ONE (10:03)
[2018-04-21] MEDS ORDERED: BUPIVACA 0.25%/EPI 0.0005% MDV 50 ML VIAL ONE (10:08)
[2018-04-21] MEDS ORDERED: COLLAGENASE 30 GM OINTMENT TOP ONE (10:42)
--- NOTE | 2018-04-21 10:49 | P.OP ---
Preoperative diagnosis: LEFT posterior arm infected wound Postoperative diagnosis: LEFT posterior arm infected wound Primary procedure: Debridement of LEFT posterior arm infected wound Anesthesia: GETA + local Estimated blood loss: <1cc Specimen: Cultures sent Findings: necrotic adipose tissue, ~5cm of undermining, wound 3x4x5 cm Complications: None Transferred to: Recovery Room Condition: Good
[2018-04-21] MEDS ORDERED: MORPHINE SULFATE/PF 1 MG/ML (10 ML AMP) ONE (11:31)
[2018-04-21] MEDS ORDERED: LIDOCAINE 1% MPF 5 ML VIAL ONE (11:31)
[2018-04-21] MEDS ORDERED: EPHEDRINE SULF 50 MG/ML SYR ONE (11:31)
[2018-04-21] MEDS ORDERED: OXYTOCIN 10 UNIT/ML ML IV ONE ×2 (11:33→12:18)
[2018-04-21] MEDS ORDERED: BUPIVACAINE 0.75% (PF) 2 ML SP ONE (11:33)
[2018-04-21] MEDS ORDERED: ONDANSETRON HCL 40 MG/20 ML VIAL ONE (11:36)
[2018-04-21] MEDS ORDERED: Phenylephrine HCl 10 MG/ML 1 ML VIAL ONE (11:42)
--- NOTE | 2018-04-21 14:39 | CON ---
Date of Consultation: 04/21/2018 Reason For Consultation: Left arm wound. Brief History Of Present Illness: The patient is a 58-year-old woman with a history of hyp ertension, migraine, COPD, who came to the emergency room with lethargy and abdominal pain. She had been having some vomiting and diarrhea, and she had some chest pain which was constant, exacerbated b y vomiting. She ultimately was brought in the hospital, had a workup which included abdominal CT and cardiac workup to look for any evidence of stress-induced ischemia. None was noted on any of the im aging studies. I was consulted to see the patient for a chronic left posterior arm wound in the area of the triceps, mid arm position with a black eschar and drainage. She is unsure of how long she coyne s had this. She was unaware of this until yesterday. Past Medical History: Significant for COPD, CHF, depression, hypertension, migraines. Past Surgical History: Cholecystectomy, . Home Medications: Include Celexa, Lasix, Pamelor, Ceftin, Zofran. Allergies: TO PENICILLIN, CAUSES A RASH. Social History: She is a former smoker. She denies alcohol or recreational drug use. Review of Systems: A 10-point review of systems other than HPI, denies. Physical Examination: General: At the time of my examination, she is awake, alert, and oriented. Psychiatric: She is appropriate and conversive. HEENT: Atraumatic. Her oral mucous membranes are moist. Neck: Supple. No JVD. Respiratory: Clear to auscultation bilaterally. Cardiovascular: Regular rate and rhythm. GI: Soft, nontender, nondistended. Extremities: Focused examination of the extremities shows a small approximately 0.5 x 2 x 2 cm wound on the posterior left arm in the triceps distribution down to fat. There is a black eschar overlyin g this with murky secretions. It has a dressing covered at the time, which was removed and the efflu ent was apparently yellowish. She also has a right forearm wound near the antecubital fossa, a red a tamara, which is a quarter of a centimeter in size, clean with minimal skin breakage at that point. The remainder examination is unremarkable. Laboratory Data: Reveals a white blood count 9.7, hemoglobin 8.1, hematocrit 24.8, platelet count is 327. Her chemistry showed sodium 138, potassium 3.7, chloride 101, carbon dioxide 29, BUN 6, creati nine 0.5, glucose is 108, calcium 7.3. Her proBNP on 04/19 was 1680. She had multiple imaging, whic h included acute abdominal series, which officially read as free air is not seen beneath the diaphrag m. Lungs appear clear of acute infiltrate. Bowel gas pattern is unremarkable. She had an abdomen a nd pelvis CT on 04/18, which was officially read as low-density areas with the right kidney probably indicating of marked pyelonephritis and moderate colitis. She had a chest x-ray on 04/19, which was officially read as portable technique, limits examination of quality, however, there are fibro-emphys ematous changes present in both lungs. The heart is mildly enlarged in size with no displaced fractu res. She had a cardiac imaging stress new nuclear study, which showed no stress-induced ischemia, sm all fixed defect in the inferior wall at the apex is favored to be attenuation artifact rather than s carring. End-diastolic volume 106, ejection fraction 60%. She had a pharmacologic stress test, the official impression is Lexiscan injected, Cardiolite injected per protocol. See nuclear medicine rep ort. No supraventricular tachycardia. No ventricular tachycardia. No premature ventricular complex es, nondiagnostic EKG with Lexiscan stress. Assessment And Plan: This is a 58-year-old female with a posterior arm wound and multiple medical pr oblems as described above. 1.Antibiotic coverage. 2.I have explained the risks, benefits, and alternatives of debridement of this left arm wound, incl uding but not limited to bleeding, infection, damage to surrounding tissue, need further operating procedures. The patient ag mya to proceed as indicated. MILAN/NIRAV Voice ID: [id number] Report ID: [id number]
[2018-04-21] MEDS: ONDANSETRON 4 MG/2 ML VIAL IV PRN (16:57)
[2018-04-21] MEDS: TRAMADOL HCL 50 MG TAB PO PRN ×2 (16:57→23:27)
--- NOTE | 2018-04-21 18:14 | P.DS ---
Admission Date: 04/20/18 Discharge Date: 04/21/18 Disposition: ROUTINE DISCHARGE Discharge Condition: GOOD Reason for Admission: Abdominal pain, nausea vomiting, chest pain - Problems (1) Clostridium difficile colitis Current Visit: Yes Status: Acute (2) Abdominal pain Onset Date: 04/20/18 Current Visit: Yes Status: Resolved (3) Hypokalemia Onset Date: 04/20/18 Current Visit: Yes Status: Resolved (4) Intractable nausea and vomiting Onset Date: 04/20/18 Current Visit: Yes Status: Resolved Qualifiers: Vomiting type: unspecified Qualified Code(s): R11.2 - Nausea with vomiting , unspecified (5) Chest pain, rule out acute myocardial infarction Onset Date: 02/10/18 Current Visit: No Status: Resolved Brief History of Present Illness: Ms Hinkle is a 58-year-old woman with history of hypertension, migraines, COPD, who about 1 week ago she stopped taking Vicodin and Soma. She said that she was taking significant amount of both of these medication. She start taking because finish her pills and did not refilled them. Since then she has been more lethargic, with abdominal pain. Since 4 days ago, she has been vomiting and having diarrhea. She denied any fever but has had chills. She is also complaining of chest pain, which is constant, exacerbated when she vomiting. Lab work remarkable for leukocytosis with bandemia, elevated troponin I, anemia (chronic) and electrolyte disturbance. EKG shows sinus rhythm about 100 bpm, with isolated PAC's without ST-T abnormality. Hospital Course: The patient was admitted to the hospital due to abdominal pain associated with nausea, vomiting and diarrhea. She had leukocytosis with bandemia, no fever. She was provided fluid resuscitation, symptomatic medications for nausea and vomiting. 1. Chest pain with progressive shortness of breath, possible volume overload. Ejection fraction 60%. Stress test was negative. Cardiac stress test was negative. Patient will follow up outpatient with buttonhole facer. 2. Hypokalemia, Levels now normalized after replacement. 3. Colitis. Was given a course of IV antibiotics. Blood culture w/ E. coli. She will complete a course of PO levaquin 4. Pyelonephritis. Urine culture was positive for E. coli and strep agalactaciae ; will complete a 7 day course of levaquin as both are sensitive to the antibiotic. 5. Microcytic anemia. The patient has been transfused 1 unit PRBCs during this stay. H&H stable at the time of discharge. 6. Intractable nausea and vomiting, resolved w/ symptomatic management. 7. Clostridium difficile colitis. She will finish a 10 day course of oral vancomycin. 8. Acute metabolic encephalopathy, likely secondary to pyelonephritis and colitis, resolved 9. Chronic obstructive pulmonary disease. Will resume home medications. 10. Left arm infected wound, s/p debridement. No need for antibiotic treatment for this. Vital Signs/Physical Exam: Temp Pulse Resp BP Pulse Ox 98.0 F 120 H 18 130/60 98 04/21/18 16:00 04/21/18 16:00 04/21/18 16:00 04/21/18 16:00 04/21/18 16:00 General: Alert, In no apparent distress HEENT: Atraumatic Neck: Supple Respiratory: Clear to auscultation bilaterally Cardiovascular: No edema Gastrointestinal: Normal bowel sounds Integumentary: No rashes Neurological: Normal speech Laboratory Data at Discharge: WBC 9.7 K/uL (4.3-10.9) D 04/21/18 04:10 Hgb 8.1 g/dL (12.0-15.0) L 04/21/18 04:10 Hct 24.8 % (36.0-45.0) L 04/21/18 04:10 Plt Count 327 K/uL (152-406) 04/21/18 04:10 Sodium 138 mmol/L (136-145) 04/21/18 04:10 Potassium 3.7 mmol/L (3.5-5.1) 04/21/18 04:10 BUN 6 mg/dL (7-18) L 04/21/18 04:10 Creatinine 0.50 mg/dL (0.55-1.3) L 04/21/18 04:10 Glucose 108 mg/dL (74-106) H 04/21/18 04:10 Magnesium Cancelled 04/19/18 05:00 Total Bilirubin 0.6 mg/dL (0.2-1.0) 04/19/18 03:54 AST 71 U/L (15-37) H 04/19/18 03:54 ALT 26 U/L (12-78) 04/19/18 03:54 Alkaline Phosphatase 83 U/L (45-117) 04/19/18 03:54 Troponin I 0.03 ng/mL (0.0-0.045) 04/19/18 13:08 Lipase 62 U/L (73-393) L 04/18/18 05:12 Home Medications: Furosemide [Lasix*] 40 mg PO DAILY 01/21/18 Nortriptyline HCl [Pamelor] 100 mg PO BEDTIME 01/21/18 Ondansetron HCl [Zofran] 4 mg PO DAILY PRN #10 tablet 02/10/18 Collagenase [Santyl Ointment*] 1 appl TOP DAILY #1 tube 04/21/18 Vancomycin HCl 125 mg PO Q6HR 8 Days #32 capsule 04/21/18 levoFLOXacin [Levaquin*] 750 mg PO DAILY #6 tab 04/21/18 New Medications: Vancomycin HCl 125 mg PO Q6HR 8 Days #32 capsule Collagenase [Santyl Ointment*] 1 appl TOP DAILY #1 tube levoFLOXacin [Levaquin*] 750 mg PO DAILY #6 tab Patient Discharge Instructions: 1) Please follow up with your Primary care doctor in 1 week. 2) Please follow wound care instructions provided by your surgeon. 3) Follow up with cardiology in 2 weeks. Diet: AHA Activity: Fall precautions Followup: Emma PECK,Michel Richard DO [ACTIVE - CAN ADMIT] - Ck Reddy MD [ACTIVE - CAN ADMIT] - Kyle Romano MD [ACTIVE - CAN ADMIT] - Time spent managing pt's care (in minutes): 55
[2018-04-21] MEDS: levoFLOXacin 750 MG TAB PO SCH (20:12)
[2018-04-21] MEDS: NORTRIPTYLINE HCL 25 MG CAP PO SCH (20:12)
--- NOTE | 2018-04-21 22:06 | OP ---
Date of Procedure: 04/21/2018 Surgeon: Ck Reddy MD, Preoperative Diagnosis: Left posterior arm infected wound. Postoperative Diagnosis: Left posterior arm infected wound. Procedure Performed: Debridement of left posterior arm infected wound. Anesthesia: General endotracheal plus local with 0.25% Marcaine. Estimated Blood Loss: Less than 1 cc. Specimen: Culture sent both aerobic and anaerobic speciation. Findings: Necrotic adipose tissue approximately 5 cm undermining. The wound was a total of 3 x 4 x 5 cm in size. Complications: None. Disposition: Transferred to recovery room in good condition. Procedure In Detail: After informed consent was obtained, the patient was brought to the operating r oom, prepped and draped in the usual sterile fashion. After adequate anesthesia was achieved, the ar ea of the necrosis and eschar was sharply debrided down to good bleeding adipose tissue. This was ci rcumferentially cleaned down to approximately 3 x 4 x 5 cm. Depth was approximately 5 cm. All necro tic tissue was removed. The area was copiously irrigated multiple times. Hemostasis was easily achi eved with electrocautery, and the area was irrigated once again and dried completely. The area was i nspected. Hemostasis was achieved without any additional hemostatic maneuvers at this time. Santyl and packing were placed at this time, and sterile dressing was placed over the top. The patient tole rated the procedure well without evidence of complication and transferred to PACU in good condition. All counts were correct at the end of the case. MILAN/NIRAV Voice ID: [id number] Report ID: [id number]
[2018-04-21] MEDS: ONDANSETRON 4 MG (ODT) TAB PO PRN (23:28)
[2018-04-22 05:09] LABS: BUN Blood Urea Nitrogen 5 mg/dL (7-18); Bicarbonate 30 mmol/L (21-32); Glucose Level 110 mg/dL (74-106); Potassium 3.7 mmol/L (3.5-5.1); Sodium Level 138 mmol/L (136-145)
[2018-04-22] MEDS ORDERED: POTASSIUM CL SA 10 MEQ TAB PO ONE (05:22)
[2018-04-22] MEDS: VANCOMYCIN ORAL SOLN 250 MG/5 ML OSYR PO SCH ×3 (05:41→17:08)
[2018-04-22] MEDS: TRAMADOL HCL 50 MG TAB PO PRN ×3 (05:41→21:25)
[2018-04-22] MEDS: NORTRIPTYLINE HCL 25 MG CAP PO SCH (09:30)
[2018-04-22] MEDS: FUROSEMIDE 40 MG TABLET PO SCH (09:34)
[2018-04-22] MEDS: COLLAGENASE 30 GM OINTMENT TOP SCH (09:39)
[2018-04-22] MEDS: ACETAMINOPHEN 500 MG TAB PO PRN (09:39)
[2018-04-22] MEDS: ENOXAPARIN 40 MG/0.4 ML SQ SCH (09:39)
--- NOTE | 2018-04-22 11:37 | RAD REPORT ---
EXAM DESCRIPTION: CT - Head Brain Wo Cont - 04/22/2018 11:29 am CLINICAL HISTORY: change in level of consciousness Drowsiness COMPARISON: No comparisons TECHNIQUE: All CT scans are performed using dose optimization technique as appropriate and may inclu de automated exposure control or mA/KV adjustment according to patient size. FINDINGS: No intracranial hemorrhage, hydrocephalus or extra-axial fluid collection.No areas of brai n edema or evidence of midline shift. The paranasal sinuses and mastoids are clear. The calvarium is intact. IMPRESSION: No acute intracranial abnormality.
[2018-04-22] MEDS: ONDANSETRON 4 MG/2 ML VIAL IV PRN (11:47)
--- NOTE | 2018-04-22 12:24 | EKG ---
Test Date: 2018-04-22 Test Time: 11:04:47 Buckle And Button Maker: YNES MEASUREMENT RESULTS: Intervals: Rate: 102 ID: [id number] QRSD: 88 QT: 340 QTc: 443 [place]: P: 68 ID: [id number] QRS: 57 T: 59 INTERPRETIVE STATEMENTS: Sinus tachycardia Possible Left atrial enlargement Borderline ECG Compared to ECG 04/19/2018 12:02:04 No significant changes Electronically Signed On 04-22-18 12:23:44 CDT by Kyle Romano
[2018-04-22 13:21] LABS: Barbiturates NEGATIVE (NEGATIVE); Benzodiazepines NEGATIVE (NEGATIVE); Cocaine NEGATIVE (NEGATIVE); METHAMPHETAM POSITIVE (NEGATIVE); Methadone NEGATIVE (NEGATIVE); Opiates NEGATIVE (NEGATIVE); Phencyclidine NEGATIVE (NEGATIVE); THC Cannibis NEGATIVE (NEGATIVE)
--- NOTE | 2018-04-22 20:09 | P.PN ---
Subjective Date of Service: 04/22/18 Chief Complaint: Abdominal pain, nausea vomiting, chest pain Patient seen and examined at bedside today. No family at bedside. Patient complaining of nonradiating left-sided chest pain that is been on and off throughout this hospitalization associated with increased shortness of breath and dizziness. Patient also looks more sleepy with some changes in his speech. Her O2 sats also dropped but only when she was lying in bed. Patient on supplemental oxygen. Per nursing report the friend was seen going into patient' s room who was also sent to the ER for potential cellulitis. Unsure if patient used any home medications or any other drug usage. Patient denies using any substances or medications from home. Physical Examination - Vital Signs Temperature: 97.6 F Blood Pressure: 112/57 Pulse: 99 Respirations: 16 Pulse Ox (%): 92 - Physical Exam General: Other (Slightly confused, more sleepy, some speech changes. Though was able to tell me about her chest pain) Neck: JVD not distended Respiratory: Clear to auscultation bilaterally, Normal air movement Cardiovascular: Normal pulses, Normal S1 S2 Gastrointestinal: Normal bowel sounds, Soft and benign Musculoskeletal: No clubbing, No swelling Assessment And Plan - Current Problems (Diagnosis) (1) Clostridium difficile colitis Current Visit: Yes Status: Acute (2) Abdominal pain Onset Date: 04/20/18 Current Visit: Yes Status: Resolved (3) Hypokalemia Onset Date: 04/20/18 Current Visit: Yes Status: Resolved (4) Intractable nausea and vomiting Onset Date: 04/20/18 Current Visit: Yes Status: Resolved Qualifiers: Vomiting type: unspecified Qualified Code(s): R11.2 - Nausea with vomiting , unspecified (5) Chest pain, rule out acute myocardial infarction Onset Date: 02/10/18 Current Visit: No Status: Resolved - Plan Patient was discharged yesterday but due to a right issue could not leave. This morning, she was found to have altered mentation and decrease in oxygenation. Altered mentation: Could be due to ingestion of unknown substance or medication , cardiac condition, neurological involvement. Check CT head without contrast, EKG, UDS. Hypoxia on exertion: PT evaluated patient. Per PT, O2 sats dropped only when patient was lying in bed. Could due to patient not taking in deep enough breath or being more sleepy. Will continue supplemental oxygen via nasal cannula and monitor. Chest pain with progressive shortness of breath, possible volume overload. Ejection fraction 60%. Stress test was negative. Hypokalemia, severe. We will replace and monitor. We will check magnesium level. Colitis. Continue IV antibiotics. Blood culture preliminary shows gram- negative rods. ID and sensitivity pending. Pyelonephritis. Follow up on urine culture. Microcytic anemia. Check iron levels. Check occult blood. The patient has been transfused 1 unit PRBCs. Monitor H and H, transfuse as needed. Intractable nausea and vomiting, improved. Clostridium difficile colitis. Start the patient on oral vancomycin. Morbid obesity. Body mass index 40. Acute metabolic encephalopathy, likely secondary to pyelonephritis and colitis, improving. Chronic obstructive pulmonary disease. We will continue nebulizers. Congestive heart failure, diastolic dysfunction. Continue home medications. Plan: Will monitor patient overnight. Will follow up on head CT, UDS, EKG. Will re-evaluate patient in the morning. Disposition pending symptomatic improvement. Time Spent Managing PTS Care (In Minutes): 45
[2018-04-22] MEDS: levoFLOXacin 750 MG TAB PO SCH (21:20)
[2018-04-22] MEDS: ONDANSETRON 4 MG (ODT) TAB PO PRN (21:27)
[2018-04-23] MEDS: VANCOMYCIN ORAL SOLN 250 MG/5 ML OSYR PO SCH ×3 (00:36→12:30)
[2018-04-23] MEDS: TRAMADOL HCL 50 MG TAB PO PRN ×2 (04:01→13:39)
[2018-04-23 06:59] LABS: BUN Blood Urea Nitrogen 4 mg/dL (7-18); Bicarbonate 32 mmol/L (21-32); Glucose Level 85 mg/dL (74-106); Potassium 3.7 mmol/L (3.5-5.1); Sodium Level 138 mmol/L (136-145)
[2018-04-23] MEDS: FUROSEMIDE 40 MG TABLET PO SCH (08:42)
[2018-04-23] MEDS: ENOXAPARIN 40 MG/0.4 ML SQ SCH (08:42)
[2018-04-23] MEDS: COLLAGENASE 30 GM OINTMENT TOP SCH (08:43)
[2018-04-23 08:50] VITALS: O2SAT 93
[2018-04-23 12:41] VITALS: BP 110/59; TEMP 99.6
== END 2018-04-23 17:32 | disposition home or self-care (01) | DRG 356 ==
LOC: ER 04:29 → ERHOLD 06:19 → 4TH 08:11 → OBSVTOIN 04-20 15:47
PROVIDERS: ADMIT Internal Medicine; ATTEND Family Medicine
PROC: 0JBF0ZZ Excision of Left Upper Arm Subcutaneous Tissue and Fascia, Open Approach (ICD-10-PCS; principal; 2018-04-21 10:15)
DX: A04.72 Enterocolitis due to Clostridium difficile, not specified as recurrent (principal); G93.41 Metabolic encephalopathy; N12 Tubulo-interstitial nephritis, not specified as acute or chronic; Z68.41 Body mass index [BMI] 40.0-44.9, adult; I50.32 Chronic diastolic (congestive) heart failure; E87.6 Hypokalemia; B96.20 Unspecified Escherichia coli [E. coli] as the cause of diseases classified elsewhere; D50.9 Iron deficiency anemia, unspecified; E66.01 Morbid (severe) obesity due to excess calories; J44.9 Chronic obstructive pulmonary disease, unspecified; I11.0 Hypertensive heart disease with heart failure; E87.70 Fluid overload, unspecified; F32.9 Major depressive disorder, single episode, unspecified; Z87.891 Personal history of nicotine dependence; L98.499 Non-pressure chronic ulcer of skin of other sites with unspecified severity
CPT/HCPCS: 36415; 70450; 71045; 74022; 74177; 78452; 80048; 80053; 80076; 80307; 81003; 81015; 82550; 82553; 83605; 83690; 83735; 83880; 84132; 84145; 84484; 85014; 85018; 85025; 86850; 86900; 86901; 87040; 87045; 87046; 87070; 87075; 87077; 87086; 87088; 87186; 87205; 87493; 93005; 93017; 94640; 96361; 96365; 96366; 96375; 97163; 99285; A9500; G0378; J0744; J1650; J2250; J2270; J2370; J2405; J2590; J2785; J3010; J3370; J3590; J7030; P9016; Q9967

== ENCOUNTER 2018-06-19 23:54 | Inpatient (IN) | payer SELFPAY ==
[2018-06-19] MEDS ORDERED: LORazepam 2 MG/ML VIAL ONE (23:56)
--- OUTSIDE RECORDS SUMMARY | 2018-06-19 23:56 | XMS REPORT ---
:1960 [facility] [address] [place] [id number] Care Team Providers Name Role Phone AMANDA [...] or Equal to 0.3 ng/mL Strongly suggests GA Patient not in room - return [id number] 19:13:00 Test Item Value Reference Range Comments Chemistry (test 0.5 ng/mL 0-6.6 code=CKMBM-T) Chemistry (test Less than 0.010 < 0.028 code=TROPI-T) ng/mL Reference Range 0.00 - 0.028 ng/mL Negative 0.029 - 0.29 ng/mL Indeterminate Greater or Equal to 0.3 ng/mL Strongly suggests GA Chemistry - BNP, HgbA1c, [id number] 19:12:00 Test Item Value Reference Range Comments Chemistry - BNP, HgbA1c, PTHi (test code=BNP) 238.9 pg/mL 0-100 [id number] 19:07:00 Test Item Value Reference Range Comments [...] 70-105 Chemistry (test code=CA) 8.8 mg/dL 7.8-10.44 [id number] 18:46:00 Test Item Value Reference Range Comments [...]
[2018-06-20] MEDS ORDERED: FUROSEMIDE 40 MG/4 ML VIAL ONE
[2018-06-20] MEDS ORDERED: NITROGLYCERIN 0.4 MG/TAB SL ONE (00:01)
[2018-06-20 00:23] LABS: Absolute Lymphocytes (CBC) 1.9 K/uL (0.7-4.9); Absolute Monocytes 0.9 K/uL (0.1-1.3); Absolute Neutrophil 5.7 K/uL (1.8-8.0); Basophils % 0.8 % (0-1.3); Eosinophils % 1.4 % (0-4.4); Hematocrit 31.4 % (36.0-45.0); Lymphocytes % 21.7 % (15.3-44.8); MCH 30.4 pg (27.0-35.0); MPV 8.5 fL (7.6-11.3); RBC Red Blood Cell Count 3.37 M/uL (3.86-4.86)
[2018-06-20 00:24] LABS: Protime INR 1.08
[2018-06-20 00:39] LABS: ALT/SGPT 32 U/L (12-78); AST/SGOT 41 U/L (15-37); Albumin 3.7 g/dL (3.4-5.0); Alkaline Phosphatase 99 U/L (45-117); BUN Blood Urea Nitrogen 11 mg/dL (7-18); Bicarbonate 30 mmol/L (21-32); Bilirubin Direct < 0.1 mg/dL (0-0.2); Bilirubin Total 0.2 mg/dL (0.2-1.0); Glucose Level 99 mg/dL (74-106); Magnesium 2.2 mg/dL (1.8-2.4); NT PRO-BNP 724 pg/mL (<125); Sodium Level 143 mmol/L (136-145); Troponin (Emerg Dept Use Only) 0.02 ng/mL (0.0-0.045)
--- NOTE | 2018-06-20 01:54 | EDPHYS ---
Physician Documentation [facility] Name: Teri Hinkle Age: 58 yrs Sex: Female : 1960 Arrival Date: 06/19/2018 Time: 23:55 Bed 2 Private MD: ED Physician Mayo Mae HPI: 06/20 00:01 This 58 yrs old Female presents to ER via Unassigned with complaints of ps1 Respiratory Distress. 00:01 patient presenting by EMS for shortness of breath. Worse over the last week. Stopped ps1 taking her diuretics. In resp distress per EMS with SPO2 70's on RA, 100 on CPAP. Leg swelling worse over last week. Speaking in 2-3 word sentences. No wheezing. . Historical: - Allergies: : PENICILLINS; ea - Home Meds: nortriptyline 50 mg Oral cap 2 caps once daily [Active]; ibuprofen 600 mg Oral tab as ea needed [Active]; clopidogrel 75 mg Oral tab 1 tab once daily [Active]; Celexa 20 mg Oral tab 1 tab once daily [Active]; - PMHx: CHF; COPD; Depression; Migraines; Hypertension; ea - PSHx: : Cholecystectomy; ; ea - Immunization history:: Adult Immunizations up to date. - Social history:: Smoking status: unknown. - Ebola Screening: : No symptoms or risks identified at this time. ROS: 00:01 Constitutional: Negative for fever, chills, and weight loss, Eyes: Negative for injury, ps1 pain, redness, and discharge, Cardiovascular: Negative for chest pain, palpitations, and edema, Abdomen/GI: Negative for abdominal pain, nausea, vomiting, diarrhea, and constipation, Back: Negative for injury and pain, MS/Extremity: Negative for injury and deformity, Skin: Negative for injury, rash, and discoloration, Neuro: Negative for headache, weakness, numbness, tingling, and seizure. 00:01 Respiratory: Positive for dyspnea on exertion, orthopnea, shortness of breath. 00:01 Psych: Positive for anxiety. Exam: 00:01 Constitutional: This is a well developed, well nourished patient who is awake, alert, ps1 and in no acute distress. Head/Face: Normocephalic, atraumatic. Chest/axilla: Normal chest wall appearance and motion. Nontender with no deformity. No lesions are appreciated. Cardiovascular: Regular rate and rhythm. No gallops, murmurs, or rubs. Normal PMI, no JVD. No pulse deficits. 00:01 Respiratory: moderate respiratory distress is noted, Respirations: labored breathing, that is moderate, tachypnea, Breath sounds: bronchial sounds, rhonchi, that are moderate. 00:01 Psych: Behavior/mood is anxious. Vital Signs: 00:00 BP 140 / 83; Pulse 115; Resp 24; Temp 98; Pulse Ox 95% on R/A; Weight 83.91 kg; Height rr5 5 ft. 1 in. (154.94 cm); Pain 0/10; 00:40 BP 124 / 78; Pulse 95; Resp 20; Pulse Ox 99% on BiPAP; ea 01:00 BP 111 / 70; Pulse 92; Resp 16; Pulse Ox 98% on BiPAP; ea 01:20 BP 119 / 68; Pulse 91; Resp 15 S; Pulse Ox 100% on BiPAP; ea 02:02 BP 102 / 63; Pulse 88; Resp 17; Pulse Ox 99% ; ea 03:02 BP 118 / 73; Pulse 93; Resp 22; Pulse Ox 99% on BiPAP; tl2 03:20 BP 123 / 75; Pulse 90; Resp 18; Temp 98.2; Pulse Ox 100% on BiPAP; ea 00:00 Body Mass Index 34.96 (83.91 kg, 154.94 cm) rr5 MDM: 00:11 Patient medically screened. ps1 01:53 Differential diagnosis:. Data reviewed: vital signs, nurses notes, lab test result(s), ps1 EKG, radiologic studies, and as a result, I will continue to observe the patient. Counseling: I had a detailed discussion with the patient and/or guardian regarding: the historical points, exam findings, and any diagnostic results supporting the discharge/admit diagnosis, the presence of at least one elevated blood pressure reading (>120/80) during this emergency department visit, lab results, radiology results, the need for further work-up and treatment in the hospital. 06/20 00:08 Order name: CBC with Diff; Complete Time: 00:31 ps1 06/20 00:08 Order name: LFT's; Complete Time: 00:48 ps1 06/20 00:08 Order name: Magnesium; Complete Time: 00:48 ps1 06/20 00:08 Order name: NT PRO-BNP; Complete Time: 00:48 ps1 06/20 00:08 Order name: PT-INR; Complete Time: 00:31 ps1 08 00:08 Order name: Troponin (emerg Dept Use Only); Complete Time: 00:48 ps1 06/20 00:08 Order name: XRAY Chest (1 view) ps1 06/20 00:08 Order name: EKG; Complete Time: 00:09 ps1 08 00:08 Order name: Cardiac monitoring; Complete Time: 00:30 ps1 06/20 00:08 Order name: EKG - Nurse/Tech; Complete Time: 01:18 ps1 06/20 00:08 Order name: CMP; Complete Time: 00:48 ps1 06/20 00:08 Order name: IV Saline Lock; Complete Time: 00:30 ps1 06/20 00:08 Order name: Labs collected and sent; Complete Time: 00:30 ps1 06/20 00:08 Order name: O2 Per Protocol; Complete Time: 00:30 ps1 06/20 00:08 Order name: O2 Sat Monitoring; Complete Time: 00:30 ps1 Administered Medications: 00:00 Drug: Lasix 40 mg Route: IVP; Site: right antecubital; rr5 01:18 Follow up: Response: No adverse reaction ea 00:00 Drug: Ativan 1 mg Route: IVP; Site: right antecubital; rr5 00:45 Follow up: Response: No adverse reaction; Anxiety decreased ea 03:23 Drug: Ativan 1 mg Route: IVP; Site: left antecubital; tl2 03:30 Follow up: Response: No adverse reaction; Marked relief of symptoms ea Disposition: 06/20/18 01:53 Hospitalization ordered by Noemi Ji for Observation. Preliminary diagnosis are Acute CHF exacerbation, Shortness of breath, Hypoxia. - Bed requested for Telemetry/MedSurg (observation). - Status is Observation. ea - Condition is Fair. - Problem is an acute exacerbation. - Symptoms have improved. UTI on Admission? No Signatures: Dispatcher [employer] EDGifty Yo RN RN Christin Tomas RN RN tl2 Rosario Rascon RN RN ea Singer, Phillip, MD MD ps1 Gagnon, Ludwig, RN RN rr5 Corrections: (The following items were deleted from the chart) 02:21 01:53 Hospitalization Ordered by Noemi Ji MD for Observation. Preliminary mw diagnosis is Acute CHF exacerbation; Shortness of breath; Hypoxia. Bed requested for Telemetry/MedSurg (observation). Status is Observation. Condition is Fair. Problem is an acute exacerbation. Symptoms have improved. UTI on Admission? No. ps1 03:30 02:21 06/20/2018 01:53 Hospitalization Ordered by Noemi Ji MD for Observation. ea Preliminary diagnosis is Acute CHF exacerbation; Shortness of breath; Hypoxia. Bed requested for Telemetry/MedSurg (observation). Status is Observation. Condition is Fair. Problem is an acute exacerbation. Symptoms have improved. UTI on Admission? No. mw
--- NOTE | 2018-06-20 01:54 | ER ---
Nurse's Notes [facility] Name: Teri Hinkle Age: 58 yrs Sex: Female : 1960 Arrival Date: 06/19/2018 Time: 23:55 Bed 2 Private MD: Diagnosis: Acute CHF exacerbation;Shortness of breath;Hypoxia Presentation: 06/20 00:00 Method Of Arrival: EMS: [facility] rr5 00:00 Presenting complaint: EMS states: Reports she started feeling short of breath at around rr5 noon and got worse throughout the night. EMS reports sats were at 78% on RA. Pt placed on bipap at 100% pt tolerated well and started sating at 100%. 20 G to RAC. Transition of care: patient was not received from another setting of care. Onset of symptoms was June 20, 2018. Risk Assessment: Do you want to hurt yourself or someone else? Patient reports no desire to harm self or others. Initial Sepsis Screen: Does the patient meet any 2 criteria? RR > 20 per min. HR > 90 bpm. Yes Does the patient have a suspected source of infection? No. Patient's initial sepsis screen is negative. Care prior to arrival: Bipap 20 G IV to RAC. 00:00 Acuity: PRISCILA 2 rr5 Triage Assessment: 00:13 General: Appears distressed, uncomfortable, Behavior is restless. Pain: Denies pain. rr5 EENT: No signs and/or symptoms were reported regarding the EENT system. Neuro: Level of Consciousness is awake, alert, obeys commands, Oriented to person, place, time, situation, Appropriate for age. Cardiovascular: Heart tones S1 S2 present Patient's skin is warm and dry. Respiratory: Reports shortness of breath Airway is patent Respiratory effort is labored, Respiratory pattern is symmetrical, tachypnea Onset: The symptoms/episode began/occurred gradually, the patient has severe shortness of breath. Historical: - Allergies: : PENICILLINS; ea - Home Meds: nortriptyline 50 mg Oral cap 2 caps once daily [Active]; ibuprofen 600 mg Oral tab as ea needed [Active]; clopidogrel 75 mg Oral tab 1 tab once daily [Active]; Celexa 20 mg Oral tab 1 tab once daily [Active]; - PMHx: : CHF; COPD; Depression; Migraines; Hypertension; ea - PSHx: 01:26 Cholecystectomy; ; ea - Immunization history:: Adult Immunizations up to date. - Social history:: Smoking status: unknown. - Ebola Screening: : No symptoms or risks identified at this time. Screenin:12 Abuse screen: Denies threats or abuse. Nutritional screening: No deficits noted. rr5 Tuberculosis screening: No symptoms or risk factors identified. Fall Risk None identified. Assessment: 00:00 Reassessment: Respiratory at bedside placing patient on BiPAP pt tolerating well. rr5 01:19 Reassessment: Patient and/or family updated on plan of care and expected duration. Pain ea level reassessed. Pt resting with eyes closed, remains on BiPAP, tolerating well. No s/s of pain or discomfort noted at this time. 02:46 Reassessment: Patient and/or family updated on plan of care and expected duration. Pain ea level reassessed. Pt resting with eyes closed, respirations even and unlabored, pt remains on BiPAP tolerating well. 03:05 Reassessment: Report called to Jannie RAMOS on fourth floor. ea 03:27 Reassessment: Patient and/or family updated on plan of care and expected duration. Pain ea level reassessed. Pt transferred to fourth floor via stretcher per tech, social services technician at bedside. Pt placed non rebreather, tolerating well. Vital Signs: 00:00 BP 140 / 83; Pulse 115; Resp 24; Temp 98; Pulse Ox 95% on R/A; Weight 83.91 kg; Height rr5 5 ft. 1 in. (154.94 cm); Pain 0/10; 00:40 BP 124 / 78; Pulse 95; Resp 20; Pulse Ox 99% on BiPAP; ea 01:00 BP 111 / 70; Pulse 92; Resp 16; Pulse Ox 98% on BiPAP; ea 01:20 BP 119 / 68; Pulse 91; Resp 15 S; Pulse Ox 100% on BiPAP; ea 02:02 BP 102 / 63; Pulse 88; Resp 17; Pulse Ox 99% ; ea 03:02 BP 118 / 73; Pulse 93; Resp 22; Pulse Ox 99% on BiPAP; tl2 03:20 BP 123 / 75; Pulse 90; Resp 18; Temp 98.2; Pulse Ox 100% on BiPAP; ea 00:00 Body Mass Index 34.96 (83.91 kg, 154.94 cm) rr5 ED Course: 06/19 23:55 Patient arrived in ED. tl2 06/20 00:00 Mayo Mae MD is Attending Physician. ps1 00:00 Inserted saline lock: 18 gauge in left antecubital area, using aseptic technique. Blood rr5 collected. 00:00 Patient has correct armband on for positive identification. Bed in low position. Call rr5 light in reach. Side rails up X2. 00:00 Arm band placed on right wrist. Patient placed in an exam room, on a stretcher, on ea tablet coater, on pulse oximetry, Respiratory at bedside, placing pt on BiPAP. 00:04 Ludwig Gagnon, RICHARD is Primary Nurse. rr5 00:11 Triage completed. rr5 00:47 X-ray completed. Portable x-ray completed in exam room. Patient tolerated procedure sg4 well. 00:50 XRAY Chest (1 view) In Process Unspecified. EDMS 01:52 Noemi Ji MD is Hospitalizing Provider. ps1 02:46 No provider procedures requiring assistance completed. Patient admitted, IV remains in ea place. Administered Medications: 00:00 Drug: Lasix 40 mg Route: IVP; Site: right antecubital; rr5 01:18 Follow up: Response: No adverse reaction ea 00:00 Drug: Ativan 1 mg Route: IVP; Site: right antecubital; rr5 00:45 Follow up: Response: No adverse reaction; Anxiety decreased ea 03:23 Drug: Ativan 1 mg Route: IVP; Site: left antecubital; tl2 03:30 Follow up: Response: No adverse reaction; Marked relief of symptoms ea Outcome: 01:53 Decision to Hospitalize by Provider. ps1 03:06 Admitted to Med/surg accompanied by tech, room 410, with oxygen, on monitor, with ea chart, Report called to Jannie RAMOS 03:06 Condition: stable 03:06 Instructed on the need for admit. 03:30 Patient left the ED. ea Signatures: Dispatcher [employer] EDWV Christin Tomas RN RN tl2 Rosario Rascon RN RN ea Mayo Mae MD MD ps1 Betty Sims sg4 Ludwig Gagnon RN RN rr5
[2018-06-20] MEDS ORDERED: ONDANSETRON 4 MG/2 ML VIAL IV PRN (02:36)
[2018-06-20] MEDS ORDERED: ACETAMINOPHEN 650MG/RECT SUPP RECT PRN (02:36)
[2018-06-20] MEDS ORDERED: POTASSIUM CL SA 10 MEQ TAB PO ONE ×2 (04:32→13:32)
[2018-06-20] MEDS ORDERED: MORPHINE 2 MG/ML SYR IV ONE ×2 (06:17→06:20)
[2018-06-20] MEDS ORDERED: CARISOPRODOL 350 MG TAB PO PRN (06:21)
[2018-06-20 06:50] LABS: Troponin I 0.02 ng/mL (0.0-0.045)
[2018-06-20] MEDS ORDERED: OXYCODONE HCL 5 MG TAB PO PRN (07:00)
[2018-06-20] MEDS ORDERED: INFLUENZA VACCINE (for 3y+) 0.5 ML DOSE IMVAC ONE (09:00)
[2018-06-20] MEDS ORDERED: METHYLPREDNISOLONE 40 MG INJ IV SCH (09:00)
[2018-06-20] MEDS ORDERED: PNEUMOCOCCAL VACCINE 0.5 ML IMVAC ONE (09:00)
--- NOTE | 2018-06-20 09:34 | RAD REPORT ---
EXAM DESCRIPTION: Silvina Single View06/20/2018 12:51 am CLINICAL HISTORY: Shortness of breath COMPARISON: April 2018 FINDINGS: Central pulmonary artery appears somewhat prominent. The lungs appear clear of acute infil trate. The heart is mildly enlarged
[2018-06-20] MEDS: FUROSEMIDE 40 MG/4 ML VIAL IV SCH ×2 (10:05→16:25)
[2018-06-20] MEDS: ASPIRIN EC 81 MG TAB PO SCH (10:07)
[2018-06-20] MEDS: METOPROLOL TAR 50 MG TAB PO SCH ×2 (10:07→20:50)
[2018-06-20] MEDS: CITALOPRAM 10 MG TABLET PO SCH (10:07)
[2018-06-20] MEDS: ENOXAPARIN 40 MG/0.4 ML SQ SCH (10:08)
[2018-06-20] MEDS: ALBUTEROL 2.5 MG/3 ML NEB SOL NEB PRN ×2 (10:30→20:42)
[2018-06-20 12:43] LABS: Potassium 3.5 mmol/L (3.5-5.1); Troponin I < 0.02 ng/mL (0.0-0.045)
--- NOTE | 2018-06-20 15:27 | P.HP ---
Certification for Inpatient Patient admitted to: Inpatient With expected LOS: >2 Midnights Patient will require the following post-hospital care: None Practitioner: I am a practitioner with admitting privileges, knowledge of patient current condition, hospital course, and medical plan of care. Services: Services provided to patient in accordance with Admission requirements found in Title 42 Section 412.3 of the Code of Federal Regulations Patient History Date of Service: 06/20/18 Reason for admission: Shortness of breath History of Present Illness: Patient is a 58-year-old female in the hospital with shortness of breath. Patient has a history of congestive heart failure and COPD. Her chest x-ray shows some pulmonary edema. Most likely she was volume overloaded. She was given IV diuretics and placed on a BiPAP machine in the emergency room. Patient has chronic pain issues and takes a lot of pain medication. She was admitted to the hospital for further evaluation. Allergies Penicillins Adverse Reaction (Mild, Verified 02/09/18 21:35) Itching/Hives/Rash Home Medications: Nortriptyline HCl [Pamelor] 100 mg PO BEDTIME 01/21/18 Carisoprodol [Soma*] 350 mg PO TIDP PRN 06/20/18 Citalopram Hydrobromide [Celexa] 20 mg PO DAILY 06/20/18 Docusate [Colace Cap] 100 mg PO DAILY PRN 06/20/18 Naproxen [Naprosyn] 500 mg PO BIDP PRN 06/20/18 Oxycodone HCl 30 mg PO Q6HP PRN 06/20/18 - Past Medical/Surgical History Has patient received pneumonia vaccine in the past: No Diabetic: No -: COPD -: CHF -: Depression -: HTN -: Migraines -: Tarditive Dyskenisea -: Cholecystectomy -: - Social History Smoking Status: Current every day smoker Alcohol use: No CD- Drugs: No Caffeine use: Yes Place of Residence: Home Review of Systems 10-point ROS is otherwise unremarkable Physical Examination - Vital Signs Temperature: 98.7 F Blood Pressure: 108/57 Pulse: 62 Respirations: 16 Pulse Ox (%): 93 - Physical Exam General: Alert, In no apparent distress, Oriented x3 HEENT: Atraumatic, PERRLA, Mucous membr. moist/pink, EOMI, Sclerae nonicteric Neck: Supple, 2+ carotid pulse no bruit, No LAD, Without JVD or thyroid abnormality Respiratory: Clear to auscultation bilaterally, Normal air movement Cardiovascular: Regular rate/rhythm, Normal S1 S2, No murmurs Gastrointestinal: Normal bowel sounds, Soft and benign, Non-distended, No tenderness Musculoskeletal: No clubbing, No swelling, No tenderness Integumentary: No rashes Neurological: Normal gait, Normal speech, Normal strength at 5/5 x4 extr, Normal tone, Sensation intact, Cranial nerves 3-12 intact, Normal affect Lymphatics: No axilla or inguinal lymphadenopathy - Studies Laboratory Data (last 24 hrs) 06/20/18 00:01: PT 12.8 H, INR 1.08 06/20/18 00:01: Sodium 143, Potassium 3.0 L, BUN 11, Creatinine 0.50 L, Glucose 99, Magnesium 2.2, Total Bilirubin 0.2, AST 41 H, ALT 32, Alkaline Phosphatase 99 06/20/18 00:01: WBC 8.6, Hgb 10.3 L, Hct 31.4 L, Plt Count 272 Assessment & Plan - Problems (Diagnosis) (1) Shortness of breath Current Visit: Yes Status: Acute (2) Hypoxemia Current Visit: Yes Status: Acute (3) COPD exacerbation Current Visit: Yes Status: Acute (4) Acute exacerbation of congestive heart failure Current Visit: Yes Status: Acute - Plan 1. Echocardiogram 2. BiPAP support 3. Cont. Beta karina 4. Cardiology consultation if no improvement 5. Aggressive diuresis 6. Strict I's and O's 7. Repeat CXR 8. Daily weights 9. Education regarding diet and treatment of congestive heart failure Discharge Plan: Home Plan to discharge in: Greater than 2 days - Advance Directives Does patient have a Living Will: No Does patient have a Durable POA for Healthcare: No - Code Status/Comfort Care Code Status Assessed: Yes Code Status: Full Code Critical Care: No Time Spent Managing PTS Care (In Minutes): 50
[2018-06-20] MEDS: NORTRIPTYLINE HCL 25 MG CAP PO SCH (20:50)
[2018-06-20] MEDS: predniSONE 10 MG TAB PO SCH (20:50)
[2018-06-21] MEDS: FUROSEMIDE 40 MG/4 ML VIAL IV SCH ×2 (00:35→09:04)
[2018-06-21 06:07] LABS: BUN Blood Urea Nitrogen 15 mg/dL (7-18); Bicarbonate 30 mmol/L (21-32); Glucose Level 106 mg/dL (74-106); Potassium 3.4 mmol/L (3.5-5.1); Sodium Level 141 mmol/L (136-145)
[2018-06-21] MEDS ORDERED: POTASSIUM CL SA 10 MEQ TAB PO ONE ×2 (06:11→18:15)
[2018-06-21] MEDS: ENOXAPARIN 40 MG/0.4 ML SQ SCH (09:04)
[2018-06-21] MEDS: ASPIRIN EC 81 MG TAB PO SCH (09:05)
[2018-06-21] MEDS: METOPROLOL TAR 50 MG TAB PO SCH ×2 (09:05→21:22)
[2018-06-21] MEDS: CITALOPRAM 10 MG TABLET PO SCH (09:05)
[2018-06-21] MEDS: predniSONE 10 MG TAB PO SCH ×2 (09:05→21:22)
--- NOTE | 2018-06-21 13:54 | P.PN ---
Subjective Date of Service: 06/21/18 Chief Complaint: Shortness of breath Patient seen and examined at bedside with RN. Chart reviewed. Case discussed with nursing at bedside. This morning patient continues to be on BiPAP however did have improvement than yesterday. States that she has been able to breathe better than before Review of Systems 10-point ROS is otherwise unremarkable Physical Examination - Vital Signs Temperature: 97.5 F Blood Pressure: 116/62 Pulse: 72 Respirations: 16 Pulse Ox (%): 95 - Physical Exam General: Alert, Mild distress HEENT: Atraumatic, PERRLA, EOMI Neck: Supple, JVD not distended Respiratory: Normal air movement, Crackles/rales, Other Cardiovascular: Regular rate/rhythm, Normal S1 S2 Gastrointestinal: Normal bowel sounds, No tenderness Musculoskeletal: No tenderness Integumentary: No rashes Neurological: Normal speech, Normal tone, Normal affect Lymphatics: No axilla or inguinal lymphadenopathy - Studies Medications List Reviewed: Yes Assessment And Plan - Current Problems (Diagnosis) (1) Acute exacerbation of congestive heart failure Current Visit: Yes Status: Acute Plan: Acute CHF exacerbations -BiPAP at this time along with Lasix. -echo is pending at this time as well. -Xray with Improvement Qualifiers: Heart failure type: unspecified Qualified Code(s): I50.9 - Heart failure, unspecified (2) COPD exacerbation Current Visit: Yes Status: Acute Plan: Acute COPD exacerbation. -units, steroids, BiPAP at this time will wean as tolerated Discharge Plan: Home Plan to discharge in: 48 Hours - Code Status/Comfort Care Code Status Assessed: Yes Critical Care: No
[2018-06-21] MEDS: FUROSEMIDE 20 MG/ 2ML VIAL IV SCH (16:13)
[2018-06-21 18:26] LABS: Urine Appearance CLEAR; Urine Bilirubin NEGATIVE (NEG); Urine Blood NEGATIVE (NEG); Urine Color YELLOW; Urine Glucose NEGATIVE (NEG); Urine Protein NEGATIVE (NEG); Urine Urobilinogen 0.2 mg/dL (0.2-1.0); Urine pH 6.5 (5.0-7.0)
[2018-06-21 18:40] LABS: Urine Bacteria NONE SEEN /HPF (<20); Urine Culture Reflex Order NOT NEEDED; Urine RBC NONE SEEN /HPF (NONE SEEN)
[2018-06-21] MEDS: NORTRIPTYLINE HCL 25 MG CAP PO SCH (21:23)
[2018-06-22] MEDS: FUROSEMIDE 20 MG/ 2ML VIAL IV SCH ×2 (00:58→09:59)
[2018-06-22 05:58] LABS: BUN Blood Urea Nitrogen 18 mg/dL (7-18); Bicarbonate 34 mmol/L (21-32); Glucose Level 102 mg/dL (74-106); Potassium 4.6 mmol/L (3.5-5.1); Sodium Level 142 mmol/L (136-145)
--- NOTE | 2018-06-22 06:50 | CON ---
The patient admitted to Dr. Garces on 06/20/2018. Reason For Consultation: She was admitted for possible congestive heart failure. History Of Present Illness: Ms. Hinkle is a 58-year-old has a history of migraine headaches, depressi on, presumably has a history of congestive heart failure, although I do not see any documentation of that. She has a history of COPD. She takes multiple pain medication and psychiatric medication. Ca me in with shortness of breath. Allergies: PENICILLIN. Review of Systems: Noncontributory. Social History: Noncontributory. Family History: Noncontributory. Physical Examination: Vital Signs: She had a CPAP, BiPAP on board with oxygen saturation. She was very difficult to arous e because of recent anxiety and pain medication. HEENT: Negative. Neck: Supple with no bruit. Chest: Revealed wheezing. Cardiac: Normal. Abdomen: Obese. Extremities: Revealed no clubbing, cyanosis, or edema. Diagnostic Data: Showed hemoglobin of 10.3, creatinine is 0.5. BNP was 808. Potassium was 3.0. Tr oponin is negative. EKG shows sinus tachycardia. Chest x-ray is negative. Impression And Plan: I think Ms. Hinkle's main problem is chronic obstructive pulmonary disease exace rbation, not congestive heart failure. She needs to have her potassium repleted. I agree the echoca rdiogram, which was ordered for Friday. Early this year, I believe in July of 2017, she had a nor mal echocardiogram and normal stress test. I do not want repeat another stress test on her. CARY/NIRAV Voice ID: [id number] Report ID: [id number]
--- NOTE | 2018-06-22 07:15 | EKG ---
Test Date: 2018-06-20 Test Time: 01:09:14 Gang Miner: CHARLEEN MEASUREMENT RESULTS: Intervals: Rate: 99 SD: 140 QRSD: 90 QT: 392 QTc: 503 [place]: P: 68 SD: 140 QRS: 55 T: 49 INTERPRETIVE STATEMENTS: Normal sinus rhythm Possible Left atrial enlargement Prolonged QT Abnormal ECG Compared to ECG 04/22/2018 11:04:47 Prolonged QT interval now present Sinus tachycardia no longer present Electronically Signed On 06-22-18 07:11:21 FLORAL SPECIALIST by Nikhil Montes De Oca
[2018-06-22] MEDS: CITALOPRAM 10 MG TABLET PO SCH (09:58)
[2018-06-22] MEDS: METOPROLOL TAR 50 MG TAB PO SCH (09:58)
[2018-06-22] MEDS: predniSONE 10 MG TAB PO SCH ×2 (09:59→21:56)
[2018-06-22] MEDS: ENOXAPARIN 40 MG/0.4 ML SQ SCH (09:59)
[2018-06-22] MEDS: ASPIRIN EC 81 MG TAB PO SCH (10:02)
--- NOTE | 2018-06-22 10:47 | ECHO ---
HEIGHT: 5 ft 1 in WEIGHT: 162 lb 0 oz DATE OF STUDY: 06/22/[address]: Noemi Ji MD 2-DIMENSIONAL: YES M.MODE: YES DOPPLER: YES COLOR FLOW: YES TDS: NO PORTABLE: NO DEFINITY: NO BUBBLE STUDY: NO DIAGNOSIS: CONGESTIVE HEART FAILURE CARDIAC HISTORY: CATHERIZATION: NO SURGERY: NO PROSTHETIC VALVE: NO PACEMAKER: NO MEASUREMENTS (cm) DIASTOLIC (NORMALS) SYSTOLIC (NORMALS) IVSd 1.0 (0.6-1.2) LA Diam 4.1 (1.9-4.0) LVEF 69% LVIDd 4.9 (3.5-5.7) LVIDs 3.0 (2.0-3.5) %FS 39% LVPWd 1.1 (0.6-1.2) Ao Diam 2.4 (2.0-3.7) 2 DIMENSIONAL ASSESSMENT: RIGHT ATRIUM: NORMAL LEFT ATRIUM: DILATED RIGHT VENTRICLE: NORMAL LEFT VENTRICLE: NORMAL TRICUSPID VALVE: NORMAL MITRAL VALVE: NORMAL PULMONIC VALVE: NORMAL AORTIC VALVE: NORMAL PERICARDIAL EFFUSION: NONE AORTIC ROOT: NORMAL LEFT VENTRICULAR WALL MOTION: NORMAL. DOPPLER/COLOR FLOW: MILD AORTIC, MITRAL AND TRICUSPID REGURGITATION. NORMAL RIGHT VENTRICULAR SYSTOLIC PRESSURE. COMMENTS: NORMAL LEFT VENTRICULAR EJECTION FRACTION. DILATED LEFT ATRIUM. MILD AORTIC, MITRAL AND TRICUSPID REGURGITATION. TECHNOLOGIST: JOSELYN ERWIN
--- NOTE | 2018-06-22 13:41 | P.PN ---
Subjective Date of Service: 06/22/18 Chief Complaint: Shortness of breath Patient seen and examined at bedside with RN. Chart reviewed. Case discussed with nursing at bedside. This burning patient has been weaned off to nasal cannula. States that she has been able to breathe better than before. Would try to wean off of oxygen today. Review of Systems 10-point ROS is otherwise unremarkable Physical Examination - Vital Signs Temperature: 97.8 F Blood Pressure: 103/62 Pulse: 61 Respirations: 18 Pulse Ox (%): 97 - Physical Exam General: Alert, In no apparent distress HEENT: Atraumatic, PERRLA, EOMI Neck: Supple, JVD not distended Respiratory: Clear to auscultation bilaterally, Normal air movement Cardiovascular: Regular rate/rhythm, Normal S1 S2 Gastrointestinal: Normal bowel sounds, No tenderness Musculoskeletal: No tenderness Integumentary: No rashes Neurological: Normal speech, Normal tone, Normal affect Lymphatics: No axilla or inguinal lymphadenopathy - Studies Medications List Reviewed: Yes Assessment And Plan - Current Problems (Diagnosis) (1) COPD exacerbation Onset Date: 06/22/18 Current Visit: Yes Status: Acute Plan: Acute COPD exacerbation. -duo nebs, steroids, oxygen at this time will wean as tolerated -will wean off of oxygen as tolerated. -patient does qualify for home O2 however being non funded patient will need to have chair did oxygen arranged for her. (2) Acute exacerbation of congestive heart failure Onset Date: 06/22/18 Current Visit: Yes Status: Acute Plan: Acute CHF exacerbations -nasal cannula now. IV Lasix as well. -wean off of oxygen as tolerated -echo with within normal limits EF and dilated atrium. -cardiology consulted appreciated recommendations at this time -Xray with Improvement Qualifiers: Heart failure type: unspecified Qualified Code(s): I50.9 - Heart failure, unspecified - Plan Patient is pending clinical improvement at this time. Will try to wean off of oxygen. Patient is not on funded thus arranging home oxygenation it's difficult. Will try to discuss with case management regarding other options Discharge Plan: Home Plan to discharge in: 48 Hours - Code Status/Comfort Care Code Status Assessed: Yes Critical Care: No
[2018-06-22] MEDS ORDERED: INFLUENZA VACCINE (for 3y+) 0.5 ML DOSE IMVAC ONE (14:00)
[2018-06-22] MEDS ORDERED: PNEUMOCOCCAL VACCINE 0.5 ML IMVAC ONE (14:00)
[2018-06-22] MEDS: ALBUTEROL 2.5 MG/3 ML NEB SOL NEB PRN (20:05)
[2018-06-22] MEDS: NORTRIPTYLINE HCL 25 MG CAP PO SCH (21:56)
[2018-06-22] MEDS: ACETAMINOPHEN 500 MG TAB PO PRN (21:56)
[2018-06-23 06:25] LABS: Absolute Lymphocytes (CBC) 1.9 K/uL (0.7-4.9); Absolute Monocytes 0.7 K/uL (0.1-1.3); Absolute Neutrophil 5.8 K/uL (1.8-8.0); Basophils % 0.5 % (0-1.3); Eosinophils % 0.3 % (0-4.4); Hematocrit 34.3 % (36.0-45.0); Lymphocytes % 22.1 % (15.3-44.8); MCH 30.6 pg (27.0-35.0); MCV 92.5 fL (80-100); MPV 8.5 fL (7.6-11.3); Monocytes % 8.3 % (3.3-12.3); RBC Red Blood Cell Count 3.71 M/uL (3.86-4.86)
[2018-06-23 06:39] LABS: BUN Blood Urea Nitrogen 23 mg/dL (7-18); Bicarbonate 32 mmol/L (21-32); Glucose Level 106 mg/dL (74-106); Magnesium 2.5 mg/dL (1.8-2.4); Phosphorus 4.1 mg/dL (2.5-4.9); Potassium 4.8 mmol/L (3.5-5.1); Sodium Level 139 mmol/L (136-145)
--- NOTE | 2018-06-23 09:17 | RAD REPORT ---
EXAM DESCRIPTION: Silvina Pa And Lat (2 Views)06/23/2018 7:06 am CLINICAL HISTORY: Shortness of breath COMPARISON: June 20 FINDINGS: Mild interstitial lung opacities are unchanged. I suspect most not all of this is chronic. The heart is normal size. Main pulmonary artery remains prominent IMPRESSION: No change since prior exam
[2018-06-23] MEDS: ENOXAPARIN 40 MG/0.4 ML SQ SCH (09:48)
[2018-06-23] MEDS: predniSONE 10 MG TAB PO SCH ×2 (09:49→20:42)
[2018-06-23] MEDS: ASPIRIN EC 81 MG TAB PO SCH (09:49)
[2018-06-23] MEDS: CITALOPRAM 10 MG TABLET PO SCH (09:50)
--- NOTE | 2018-06-23 19:03 | P.PN ---
Subjective Date of Service: 06/23/18 Chief Complaint: Shortness of breath Subjective: Improving Physical Examination - Vital Signs Temperature: 97.9 F Blood Pressure: 127/61 Pulse: 62 Respirations: 18 Pulse Ox (%): 98 - Physical Exam General: Alert, In no apparent distress, Oriented x3, Cooperative HEENT: Atraumatic Neck: Supple Respiratory: Expiratory wheezes, Inspiratory wheezes Cardiovascular: Normal pulses, Regular rate/rhythm Gastrointestinal: Normal bowel sounds, Soft and benign, Non-distended, No tenderness, No masses, No rebound, No guarding Musculoskeletal: No erythema, No tenderness, No warmth Integumentary: No tenderness/swelling, No erythema, No warmth, No cyanosis Neurological: Normal speech, Normal strength at 5/5 x4 extr, Normal tone, Normal affect - Studies Medications List Reviewed: Yes Assessment & Plan Discharge Plan: Home Plan to discharge in: 48 Hours Physician Review Additional Text: Impression: Shortness of breath secondary to COPD exacerbation Possible acute on chronic diastolic CHF Depression Chronic pain Plan: Will continue with COPD treatment. Patient does not have any financial resources therefore will try to wean off oxygen. Home once off oxygen. COPD education addressed in detail. Will continue a 1500 cc per day fluid restriction. Echocardiogram unremarkable. Will continue with her depression medication. Will continue with her chronic pain medication. Will reassess tomorrow. Time Spent Managing Pts Care (In Minutes): 55
[2018-06-23] MEDS: ARFORMOTEROL TARTRATE 15 MCG/2 ML VIAL.NEB NEB SCH (20:29)
[2018-06-23] MEDS: IPRATROPIUM BROM 0.5MG/2.5ML NEB PRN (20:30)
[2018-06-23] MEDS: NORTRIPTYLINE HCL 25 MG CAP PO SCH (20:42)
[2018-06-24] MEDS: ALBUTEROL 2.5 MG/3 ML NEB SOL NEB PRN (01:22)
[2018-06-24] MEDS: IPRATROPIUM BROM 0.5MG/2.5ML NEB PRN (01:22)
[2018-06-24 06:19] LABS: Absolute Monocytes 0.8 K/uL (0.1-1.3); Absolute Neutrophil 5.4 K/uL (1.8-8.0); Eosinophils % 0.1 % (0-4.4); Hematocrit 35.4 % (36.0-45.0); Lymphocytes % 24.3 % (15.3-44.8); MCH 30.5 pg (27.0-35.0); MCV 92.6 fL (80-100); MPV 8.6 fL (7.6-11.3); Monocytes % 9.1 % (3.3-12.3); RBC Red Blood Cell Count 3.83 M/uL (3.86-4.86)
[2018-06-24 06:32] LABS: BUN Blood Urea Nitrogen 21 mg/dL (7-18); Bicarbonate 29 mmol/L (21-32); Glucose Level 106 mg/dL (74-106); Magnesium 2.6 mg/dL (1.8-2.4); Phosphorus 4.4 mg/dL (2.5-4.9); Potassium 4.5 mmol/L (3.5-5.1); Sodium Level 137 mmol/L (136-145)
[2018-06-24] MEDS: ARFORMOTEROL TARTRATE 15 MCG/2 ML VIAL.NEB NEB SCH ×2 (08:05→20:18)
[2018-06-24] MEDS: GUAIFENESIN 600 MG SA TAB PO SCH ×2 (09:18→21:21)
[2018-06-24] MEDS: ENOXAPARIN 40 MG/0.4 ML SQ SCH (09:18)
[2018-06-24] MEDS: CITALOPRAM 10 MG TABLET PO SCH (09:18)
[2018-06-24] MEDS: ASPIRIN EC 81 MG TAB PO SCH (09:18)
[2018-06-24] MEDS: predniSONE 10 MG TAB PO SCH ×2 (09:19→21:21)
[2018-06-24] MEDS: ACETAMINOPHEN 500 MG TAB PO PRN ×2 (09:23→15:41)
--- NOTE | 2018-06-24 15:13 | P.PN ---
Subjective Date of Service: 06/24/18 Primary Care Provider: None Chief Complaint: Shortness of breath Subjective: Improving (Patient is slowly improving.) Physical Examination - Vital Signs Temperature: 98.2 F Blood Pressure: 122/68 Pulse: 92 Respirations: 16 Pulse Ox (%): 92 - Physical Exam General: Alert, In no apparent distress, Oriented x3, Cooperative HEENT: Atraumatic Neck: Supple Respiratory: Expiratory wheezes (Better air movement bilateral) Cardiovascular: Normal pulses, Regular rate/rhythm Gastrointestinal: Normal bowel sounds, Soft and benign, Non-distended, No masses , No rebound, No guarding Musculoskeletal: No erythema, No tenderness, No warmth Integumentary: No erythema, No warmth, No cyanosis Neurological: Normal speech, Normal strength at 5/5 x4 extr, Normal tone, Normal affect Lymphatics: No axilla or inguinal lymphadenopathy - Studies Medications List Reviewed: Yes Assessment & Plan Discharge Plan: Home Plan to discharge in: 48 Hours Physician Review Additional Text: Impression: Shortness of breath secondary to COPD exacerbation Depression Chronic pain Constipation Plan: Shortness of breath secondary to COPD exacerbation: Continue with COPD medication. Encourage ambulation with physical therapy. Will have respiratory wean off oxygen. Once the patient is able to be weaned off oxygen then will plan for discharge. Patient does not have any financial resources for home oxygen. surgical services director to help provide education on Resources. Anticipate discharge in the next 24-48 hr. Echocardiogram unremarkable. No CHF. Depression: Will continue with her medication. Chronic pain: Will limit pain medication at this time. Constipation: Will provide stool softener. Time Spent Managing Pts Care (In Minutes): 55
[2018-06-24] MEDS ORDERED: TRAMADOL HCL 50 MG TAB PO PRN (17:38)
[2018-06-24] MEDS: HYDROCODONE/APAP 7.5/325 MG TAB PO PRN (18:42)
[2018-06-24] MEDS: NORTRIPTYLINE HCL 25 MG CAP PO SCH (21:21)
[2018-06-24] MEDS: BENZONATATE 100 MG CAP PO PRN (21:21)
[2018-06-25] MEDS: HYDROCODONE/APAP 7.5/325 MG TAB PO PRN ×4 (00:38→20:14)
[2018-06-25] MEDS: BENZONATATE 100 MG CAP PO PRN (00:38)
[2018-06-25 04:37] LABS: BUN Blood Urea Nitrogen 23 mg/dL (7-18); Bicarbonate 30 mmol/L (21-32); Glucose Level 114 mg/dL (74-106); Potassium 5.1 mmol/L (3.5-5.1); Sodium Level 137 mmol/L (136-145)
[2018-06-25] MEDS: ACETAMINOPHEN 500 MG TAB PO PRN (05:39)
[2018-06-25 06:02] VITALS: BMI 30.3
[2018-06-25] MEDS: ARFORMOTEROL TARTRATE 15 MCG/2 ML VIAL.NEB NEB SCH ×2 (07:30→20:53)
[2018-06-25] MEDS: ENOXAPARIN 40 MG/0.4 ML SQ SCH (08:42)
[2018-06-25] MEDS: ASPIRIN EC 81 MG TAB PO SCH (08:42)
[2018-06-25] MEDS: GUAIFENESIN 600 MG SA TAB PO SCH ×2 (08:42→20:10)
[2018-06-25] MEDS: predniSONE 10 MG TAB PO SCH ×2 (08:43→20:10)
[2018-06-25] MEDS: CITALOPRAM 10 MG TABLET PO SCH (08:43)
[2018-06-25] MEDS: DOCUSATE NA 100 MG CAP PO SCH (08:43)
--- NOTE | 2018-06-25 13:57 | P.PN ---
Subjective Date of Service: 06/25/18 Primary Care Provider: None Chief Complaint: Shortness of breath Subjective: Improving Physical Examination - Vital Signs Temperature: 98.9 F Blood Pressure: 124/66 Pulse: 83 Respirations: 18 Pulse Ox (%): 92 - Physical Exam General: Alert, In no apparent distress, Oriented x3, Cooperative HEENT: Atraumatic Neck: Supple Respiratory: Expiratory wheezes (but improving) Cardiovascular: Normal pulses, Regular rate/rhythm Gastrointestinal: Normal bowel sounds, Soft and benign, Non-distended, No tenderness, No masses, No rebound, No guarding Musculoskeletal: No erythema, No tenderness, No warmth Integumentary: No tenderness/swelling, No erythema, No warmth, No cyanosis Neurological: Normal speech, Normal strength at 5/5 x4 extr, Normal tone, Normal affect - Studies Medications List Reviewed: Yes Assessment & Plan Discharge Plan: Home Plan to discharge in: 24 Hours Physician Review Additional Text: Impression: Shortness of breath secondary to COPD exacerbation Depression Chronic pain Constipation Plan: Shortness of breath secondary to COPD exacerbation: Patient continues to improve slowly. Overall stable. Continue with COPD medication. Encourage ambulation with physical therapy. Will have respiratory wean off oxygen. Once the patient is able to be weaned off oxygen then will plan for discharge. Patient does not have any financial resources for home oxygen. account services analyst to help provide education on Resources. Anticipate discharge in the next 24-48 hr. Echocardiogram unremarkable. No CHF. Depression: Will continue with her medication. Chronic pain: Will limit pain medication at this time. Constipation: Will provide stool softener. Time Spent Managing Pts Care (In Minutes): 55
[2018-06-25] MEDS: NORTRIPTYLINE HCL 25 MG CAP PO SCH (20:11)
[2018-06-25] MEDS: IPRATROPIUM BROM 0.5MG/2.5ML NEB PRN (20:53)
[2018-06-26] MEDS: HYDROCODONE/APAP 7.5/325 MG TAB PO PRN ×2 (04:04→10:15)
[2018-06-26] MEDS: BENZONATATE 100 MG CAP PO PRN (04:05)
[2018-06-26] MEDS: ARFORMOTEROL TARTRATE 15 MCG/2 ML VIAL.NEB NEB SCH (08:34)
[2018-06-26] MEDS: predniSONE 10 MG TAB PO SCH (10:03)
[2018-06-26] MEDS: ENOXAPARIN 40 MG/0.4 ML SQ SCH (10:03)
[2018-06-26] MEDS: CITALOPRAM 10 MG TABLET PO SCH (10:03)
[2018-06-26] MEDS: ASPIRIN EC 81 MG TAB PO SCH (10:03)
[2018-06-26] MEDS: GUAIFENESIN 600 MG SA TAB PO SCH (10:03)
[2018-06-26] MEDS: DOCUSATE NA 100 MG CAP PO SCH (10:03)
[2018-06-26 10:12] VITALS: O2SAT 95
--- NOTE | 2018-06-26 11:03 | P.DS ---
Admission Date: 06/20/18 Discharge Date: 06/26/18 Primary Care Provider: None Disposition: ROUTINE DISCHARGE Discharge Condition: GOOD Reason for Admission: Shortness of breath Consultations: Pulmonary-Dr. Montes De Oca Procedures: CXR: No pneumonia identified ECHO: Ejection fraction 69%. Mild aortic, mitral and tricuspid regurgitation otherwise unremarkable Medical problem list: Shortness of breath secondary to COPD exacerbation Depression Chronic pain Constipation Brief History of Present Illness: 58-year-old female presented emergency room with shortness of breath. Patient admitted for COPD exacerbation. Hospital Course: Patient presented with shortness of breath secondary to COPD exacerbation. Patient was evaluated for possible underlying CHF by Cardiology. Echocardiogram unremarkable for CHF. Cardiology felt shortness of breath related to COPD. Patient was treated for COPD. Patient was eventually weaned off oxygen. At discharge oxygen saturations within normal range. No need for oxygen at discharge. At discharge she will continue with prednisone 10 mg 1 pill twice daily for 5 days then 1 pill once daily for 5 days. At discharge she will continue with Symbicort 2 puffs twice daily and Pro air 2 puffs 3 times a day as needed for shortness of recommendation is for the patient to follow up with pulmonology as an outpatient to further monitor. At discharge she will be given Tessalon Perles 100 mg 1 pill 3 times a day as needed for cough and Mucinex 1 pill twice daily for congestion. Patient with depression. Patient will continue with her medication of Celexa 20 mg daily and Pamelor 100 mg at bedtime. Further adjustment can be done by her PCP. Patient with chronic pain Patient may take Tylenol as needed for pain. She will be given a limited supply of tramadol 50 mg 1 pill 3 times a day as needed for pain. Recommendation is for the patient follow up with her PCP and consider pain management referral to further address her condition. Patient with constipation. Patient will be provided stool softener at discharge. Vital Signs/Physical Exam: Temp Pulse Resp BP Pulse Ox 97.8 F 73 16 96/51 L 92 06/26/18 08:00 06/26/18 08:00 06/26/18 08:00 06/26/18 08:00 06/26/18 08:00 General: Alert, In no apparent distress, Oriented x3, Cooperative HEENT: Atraumatic, Mucous membr. moist/pink Neck: Supple Respiratory: Clear to auscultation bilaterally, Normal air movement Cardiovascular: Normal pulses, Regular rate/rhythm Gastrointestinal: Normal bowel sounds, Soft and benign, Non-distended, No tenderness, No masses, No rebound, No guarding Musculoskeletal: No contractures, No erythema, No tenderness, No warmth Integumentary: No tenderness/swelling, No erythema, No warmth, No cyanosis Neurological: Normal speech, Normal strength at 5/5 x4 extr, Normal tone, Normal affect Laboratory Data at Discharge: WBC 8.3 K/uL (4.3-10.9) 06/24/18 05:34 Hgb 11.7 g/dL (12.0-15.0) L 06/24/18 05:34 Hct 35.4 % (36.0-45.0) L 06/24/18 05:34 Plt Count 260 K/uL (152-406) 06/24/18 05:34 PT 12.8 SECONDS (9.5-12.5) H 06/20/18 00:01 INR 1.08 06/20/18 00:01 Sodium 137 mmol/L (136-145) 06/25/18 04:14 Potassium 5.1 mmol/L (3.5-5.1) 06/25/18 04:14 BUN 23 mg/dL (7-18) H 06/25/18 04:14 Creatinine 0.60 mg/dL (0.55-1.3) 06/25/18 04:14 Glucose 114 mg/dL (74-106) H 06/25/18 04:14 Phosphorus 4.4 mg/dL (2.5-4.9) 06/24/18 05:34 Magnesium 2.6 mg/dL (1.8-2.4) H 06/24/18 05:34 Total Bilirubin 0.2 mg/dL (0.2-1.0) 06/20/18 00:01 AST 41 U/L (15-37) H 06/20/18 00:01 ALT 32 U/L (12-78) 06/20/18 00:01 Alkaline Phosphatase 99 U/L (45-117) 06/20/18 00:01 Troponin I < 0.02 ng/mL (0.0-0.045) 06/20/18 12:04 Triglycerides 61 mg/dL (<150) 06/20/18 06:04 Cholesterol 122 mg/dL (<200) 06/20/18 06:04 HDL Cholesterol 42 mg/dL (40-60) 06/20/18 06:04 Cholesterol/HDL Ratio 2.90 06/20/18 06:04 Home Medications: Nortriptyline HCl [Pamelor] 100 mg PO BEDTIME 01/21/18 Citalopram Hydrobromide [Celexa] 20 mg PO DAILY 06/20/18 Docusate [Colace Cap*] 100 mg PO DAILY PRN 06/20/18 Albuterol Sulfate [Proair Hfa] 8.5 gm IH TID PRN #1 hfa.aer.ad 06/26/18 Benzonatate [Tessalon Perle*] 100 mg PO TID PRN #20 cap 06/26/18 Budesonide/Formoterol Fumarate [Symbicort 160-4.5 Mcg Inhaler] 2 puff IH BID #1 hfa.aer.ad 06/26/18 Guaifenesin [Mucinex] 600 mg PO BID #20 tab.er.12h 06/26/18 predniSONE [Deltasone*] 10 mg PO SEECOM #15 tab 06/26/18 traMADol HCL [Ultram*] 50 mg PO TID PRN #15 tab 06/26/18 New Medications: Albuterol Sulfate [Proair Hfa] 8.5 gm IH TID PRN #1 hfa.aer.ad PRN Reason: Shortness Of Breath Benzonatate [Tessalon Perle*] 100 mg PO TID PRN #20 cap PRN Reason: Cough Budesonide/Formoterol Fumarate [Symbicort 160-4.5 Mcg Inhaler] 2 puff IH BID #1 hfa.aer.ad Guaifenesin [Mucinex] 600 mg PO BID #20 tab.er.12h predniSONE [Deltasone*] 10 mg PO SEECOM #15 tab traMADol HCL [Ultram*] 50 mg PO TID PRN #15 tab PRN Reason: Pain Mild Patient Discharge Instructions: 1. Patient will need to follow up her PCP in 1 week to follow up this hospitalization. 2. Patient presented with shortness of breath secondary to COPD exacerbation. Patient was evaluated for possible underlying CHF by Cardiology. Echocardiogram unremarkable for CHF. Cardiology felt shortness of breath related to COPD. Patient was treated for COPD. Patient was eventually weaned off oxygen. At discharge oxygen saturations within normal range. No need for oxygen at discharge. At discharge she will continue with prednisone 10 mg 1 pill twice daily for 5 days then 1 pill once daily for 5 days. At discharge she will continue with Symbicort 2 puffs twice daily and Pro air 2 puffs 3 times a day as needed for shortness of recommendation is for the patient to follow up with pulmonology as an outpatient to further monitor. At discharge she will be given Tessalon Perles 100 mg 1 pill 3 times a day as needed for cough and Mucinex 1 pill twice daily for congestion. 3. Patient with depression. Patient will continue with her medication of Celexa 20 mg daily and Pamelor 100 mg at bedtime. Further adjustment can be done by her PCP. 4. Patient with chronic pain Patient may take Tylenol as needed for pain. She will be given a limited supply of tramadol 50 mg 1 pill 3 times a day as needed for pain. Recommendation is for the patient follow up with her PCP and consider pain management referral to further address her condition. 5. Patient with constipation. Patient will be provided stool softener at discharge. Diet: AHA Activity: Fall precautions Time spent managing pt's care (in minutes): 55
[2018-06-26 14:13] VITALS: BP 120/57; TEMP 98.3
== END 2018-06-26 15:17 | disposition home or self-care (01) | DRG 192 ==
LOC: ER 23:54 → OBSVTOIN 06-20 02:39 → ERHOLD 06-20 02:39 → 4TH 06-20 03:12
PROVIDERS: ADMIT Hospitalist; ATTEND Family Medicine
PROC: 5A09457 Assistance with Respiratory Ventilation, 24-96 Consecutive Hours, Continuous Positive Airway Pressure (ICD-10-PCS; principal; 2018-06-20)
DX: J44.1 Chronic obstructive pulmonary disease with (acute) exacerbation (principal); F32.9 Major depressive disorder, single episode, unspecified; G89.29 Other chronic pain; K59.00 Constipation, unspecified; Z88.0 Allergy status to penicillin; F17.210 Nicotine dependence, cigarettes, uncomplicated; R09.02 Hypoxemia
CPT/HCPCS: 36415; 71045; 71046; 80048; 80053; 80061; 80076; 81001; 83735; 83880; 84100; 84132; 84484; 85025; 85610; 87070; 87205; 90670; 93005; 93306; 94640; 94660; 94760; 99285; G0008; G0009; J1650; J1940; J2270; J2920; J7512; J7605; Q2035

== ENCOUNTER 2018-07-09 13:40 | Emergency (ER) | payer SELFPAY ==
--- OUTSIDE RECORDS SUMMARY | 2018-07-09 13:42 | XMS REPORT ---
:1960 [facility] Address [address] [place] [id number] Care Team Providers Name Role Phone AMANDA [...] or Equal to 0.3 ng/mL Strongly suggests NM Patient not in room - return [id number] 19:13:00 Test Item Value Reference Range Comments Chemistry (test 0.5 ng/mL 0-6.6 code=CKMBM-T) Chemistry (test Less than 0.010 < 0.028 code=TROPI-T) ng/mL Reference Range 0.00 - 0.028 ng/mL Negative 0.029 - 0.29 ng/mL Indeterminate Greater or Equal to 0.3 ng/mL Strongly suggests NM Chemistry - BNP, HgbA1c, [id number] 19:12:00 Test Item Value Reference Range Comments Chemistry - BNP, HgbA1c, PTHi (test code=BNP) 238.9 pg/mL 0-100 [id number] 19:07:00 Test Item Value Reference Range Comments [...] 70-105 Chemistry (test code=CA) 8.8 mg/dL 7.8-10.44 [id number] 18:46:00 Test Item Value Reference Range Comments [...]
[2018-07-09 15:03] LABS: Protime INR 1.15
[2018-07-09 15:10] LABS: Absolute Lymphocytes (CBC) 1.6 K/uL (0.7-4.9); Absolute Monocytes 0.7 K/uL (0.1-1.3); Absolute Neutrophil 3.7 K/uL (1.8-8.0); Basophils % 0.8 % (0-1.3); Eosinophils % 1.2 % (0-4.4); Hematocrit 30.6 % (36.0-45.0); Lymphocytes % 25.7 % (15.3-44.8); MPV 8.3 fL (7.6-11.3); Monocytes % 11.5 % (3.3-12.3)
--- NOTE | 2018-07-09 15:13 | RAD REPORT ---
EXAM DESCRIPTION: RAD - Chest Single View - 07/09/2018 2:43 pm CLINICAL HISTORY: SWELLING Chest pain. COMPARISON: Chest Pa And Lat (2 Views) dated 06/23/2018; Chest Single View dated 06/20/2018; Chest Si ngle View dated 04/19/2018; Abdomen Acute Series dated 04/18/2018; Abdomen Pelvis W Contrast dated FINDINGS: Portable technique limits examination quality. The lungs are grossly clear. The heart is normal in size. No displaced fractures.Small hiatal hernia. IMPRESSION: No acute intrathoracic process suspected.
--- NOTE | 2018-07-09 15:19 | RAD REPORT ---
EXAM DESCRIPTION: US - Extrem Venous W Compress Robby - 07/09/2018 2:46 pm CLINICAL HISTORY: Pain;Swelling Bilateral leg edema and swelling. COMPARISON: No comparisons TECHNIQUE: Real-time sonographic interrogation of the left and right lower extremity deep venous sys tems was performed. FINDINGS: Normal compressibility, flow augmentation, phasic flow and spontaneous flow is identified in both the left and right lower extremity deep venous systems. IMPRESSION: No sonographic evidence of left or right lower extremity deep venous thrombosis.
[2018-07-09 15:26] LABS: BUN Blood Urea Nitrogen 10 mg/dL (7-18); Bicarbonate 27 mmol/L (21-32); Glucose Level 105 mg/dL (74-106); NT PRO-BNP 769 pg/mL (<125); Sodium Level 143 mmol/L (136-145); Troponin (Emerg Dept Use Only) < 0.02 ng/mL (0.0-0.045)
[2018-07-09 15:29] LABS: Potassium 2.7 mmol/L (3.5-5.1)
--- NOTE | 2018-07-09 15:33 | EKG ---
Test Date: 2018-07-09 Test Time: 14:45:32 Interactive Web Developer: YAJAIRA MEASUREMENT RESULTS: Intervals: Rate: 99 MN: 140 QRSD: 96 QT: 370 QTc: 474 [place]: P: 82 MN: 140 QRS: 78 T: 68 INTERPRETIVE STATEMENTS: Normal sinus rhythm Normal ECG Compared to ECG 06/20/2018 01:09:14 Prolonged QT interval no longer present Electronically Signed On 07-09-18 15:32:52 FOUNDRY HELPER by Nikhil Montes De Oca
[2018-07-09] MEDS ORDERED: POTASSIUM CL SA 10 MEQ TAB PO ONE ×2 (16:16→17:25)
[2018-07-09] MEDS ORDERED: Magnesium Sulfate 2gm IVPB 2 G/50 ML BAG IV ONE (16:16)
--- NOTE | 2018-07-09 16:52 | EDPHYS ---
Physician Documentation [facility] Name: Teri Hinkle Age: 58 yrs Sex: Female : 1960 Arrival Date: 07/09/2018 Time: 13:44 Bed 6 Private MD: Michel Carter H ED Physician Noemi Rodriguez HPI: 07/09 16:16 This 58 yrs old Female presents to ER via Ambulatory with complaints of Leg kb Pain. 16:16 The patient presents with pain, swelling, tenderness. The complaints affect the left kb leg and right leg. Context: resulted from an unknown cause, the patient can fully bear weight, the patient is able to ambulate. Onset: The symptoms/episode began/occurred 1 year(s) ago. Modifying factors: The symptoms are alleviated by nothing. the symptoms are aggravated by movement, weight bearing, palpation. Associated signs and symptoms: Pertinent positives: calf tenderness, swelling, Pertinent negatives fever, nausea, numbness, rash, tingling, vomiting, warmth, weakness. Treatment prior to arrival includes: no previous treatment. Severity of symptoms: At their worst the symptoms were moderate, in the emergency department the symptoms are unchanged. The patient has not experienced similar symptoms in the past. The patient has been recently been admitted at [facility]. Pt reports swelling and pain to bilateral lower extremities for a year. calf tenderness upon palpation. No pitting edema noted. Varicose veins noted bilaterally. Pt was recently admitted and worked up for CHF. Echo was unremarkable for CHF.. Historical: - Allergies: 14:17 PENICILLINS; ph - Home Meds: 17:38 Celexa 20 mg Oral tab 1 tab once daily [Active]; clopidogrel 75 mg Oral tab 1 tab once bp daily [Active]; ibuprofen 600 mg Oral tab as needed [Active]; nortriptyline 50 mg Oral cap 2 caps once daily [Active]; - PMHx: 14:17 CHF; COPD; Depression; Hypertension; Migraines; ph - PSHx: 14:17 ; Cholecystectomy; ph - Immunization history:: Adult Immunizations up to date. - Social history:: Smoking status: Patient/guardian denies using tobacco. - Ebola Screening: : Patient negative for fever greater than or equal to 101.5 degrees Fahrenheit, and additional compatible Ebola Virus Disease symptoms Patient denies exposure to infectious person Patient denies travel to an Ebola-affected area in the 21 days before illness onset No symptoms or risks identified at this time. ROS: 16:10 Constitutional: Negative for fever, chills, and weight loss, ENT: Negative for injury, kb pain, and discharge, Neck: Negative for injury, pain, and swelling, Cardiovascular: Negative for chest pain, palpitations, and edema, Respiratory: Negative for shortness of breath, cough, wheezing, and pleuritic chest pain, Abdomen/GI: Negative for abdominal pain, nausea, vomiting, diarrhea, and constipation, Back: Negative for injury and pain, Skin: Negative for injury, rash, and discoloration, Neuro: Negative for headache, weakness, numbness, tingling, and seizure. 16:10 MS/extremity: Positive for pain, swelling, tenderness, of the right leg and left leg. Exam: 16:10 Constitutional: This is a well developed, well nourished patient who is awake, alert, kb and in no acute distress. Head/Face: Normocephalic, atraumatic. Neck: Trachea midline, no thyromegaly or masses palpated, and no cervical lymphadenopathy. Supple, full range of motion without nuchal rigidity, or vertebral point tenderness. No Meningismus. Chest/axilla: Normal chest wall appearance and motion. Nontender with no deformity. No lesions are appreciated. Cardiovascular: Regular rate and rhythm with a normal S1 and S2. No gallops, murmurs, or rubs. Normal PMI, no JVD. No pulse deficits. Respiratory: Lungs have equal breath sounds bilaterally, clear to auscultation and percussion. No rales, rhonchi or wheezes noted. No increased work of breathing, no retractions or nasal flaring. Abdomen/GI: Soft, non-tender, with normal bowel sounds. No distension or tympany. No guarding or rebound. No evidence of tenderness throughout. Neuro: Awake and alert, GCS 15, oriented to person, place, time, and situation. Cranial nerves II-XII grossly intact. Motor strength 5/5 in all extremities. Sensory grossly intact. Cerebellar exam normal. Normal gait. 16:10 Musculoskeletal/extremity: Extremities: grossly normal except: noted in the left leg and right leg: pain, swelling, tenderness, Weight bearing: able to fully bear weight. Vital Signs: 14:17 BP 131 / 110; Pulse 110; Resp 22; Temp 98.3; Pulse Ox 97% on R/A; Weight 67.13 kg (R); ph 15:51 BP 112 / 91; Pulse 100; Resp 18; Pulse Ox 97% ; bp MDM: 14:22 Patient medically screened. kb 16:15 Data reviewed: vital signs, nurses notes. Data interpreted: Pulse oximetry: on room air kb is 97 %. Interpretation: normal. Counseling: I had a detailed discussion with the patient and/or guardian regarding: the historical points, exam findings, and any diagnostic results supporting the discharge/admit diagnosis, lab results, radiology results, the need for outpatient follow up, a family practitioner, to return to the emergency department if symptoms worsen or persist or if there are any questions or concerns that arise at home. 07/09 14:33 Order name: Basic Metabolic Panel; Complete Time: 15:30 kb 07/09 14:33 Order name: CBC with Diff; Complete Time: 15:24 kb 07/09 14:33 Order name: Magnesium; Complete Time: 15:30 kb 07/09 14:33 Order name: NT PRO-BNP; Complete Time: 15:30 kb 07/09 14:33 Order name: PT-INR; Complete Time: 15:12 kb 07/09 14:33 Order name: Troponin (emerg Dept Use Only); Complete Time: 15:30 kb 07/09 14:33 Order name: US Extremity Venous W Compression Robby; Complete Time: 15:24 kb 07/09 14:33 Order name: XRAY Chest (1 view); Complete Time: 15:24 kb 07/09 14:33 Order name: EKG; Complete Time: 14:34 kb 07/09 14:33 Order name: Cardiac monitoring; Complete Time: 14:52 kb 07/09 14:33 Order name: EKG - Nurse/Tech; Complete Time: 14:52 kb 07/09 14:33 Order name: IV Saline Lock; Complete Time: 14:54 kb 07/09 14:33 Order name: Labs collected and sent; Complete Time: 14:54 kb 07/09 14:33 Order name: O2 Per Protocol; Complete Time: 14:54 kb 07/09 14:33 Order name: O2 Sat Monitoring; Complete Time: 14:54 kb Administered Medications: 15:45 Drug: Magnesium Sulfate 2 grams Route: IVPB; Infused Over: 2 hrs; Site: right bp antecubital; 16:15 Follow up: IV Status: Completed infusion; IV Intake: 100ml bp 16:05 Drug: Potassium Chloride 40 mEq Route: PO; bp 17:34 Follow up: Response: No adverse reaction bp 17:10 Drug: Potassium Chloride 40 mEq Route: PO; bp 17:34 Follow up: Response: No adverse reaction bp Disposition: 07/09/18 16:52 Discharged to Home. Impression: Pain in left leg, Pain in right leg, Hypomagnesemia, Hypokalemia. - Condition is Stable. - Discharge Instructions: Hypomagnesemia, Varicose Veins, Hypokalemia. - Medication Reconciliation Form, Thank You Letter, Antibiotic Education, Prescription Opioid Use form. - Follow up: Emergency Department; When: As needed; Reason: Worsening of condition. Follow up: [facility]; When: 2 - 3 days; Reason: Recheck today's complaints, Continuance of care, Re-evaluation by your physician. Addendum: 07/11/2018 15:31 Co-signature as Attending Physician, Noemi Rodriguez MD. m a2 Signatures: Dispatcher [employer] EDMS Stacey Hampton, STEVE-C JOB SPECIFICATION WRITER-Shari Cagle RN RN Carlos Eduardo Allen RN RN Noemi Paulson MD MD ma2 Corrections: (The following items were deleted from the chart) 07/09 16:18 16:16 Pt reports swelling and pain to bilateral lower extremities for a year. calf kb tenderness upon palpation. No pitting edema noted. Varicose veins noted bilaterally.. kb 17:50 16:52 07/09/2018 16:52 Discharged to Home. Impression: Pain in left leg; Pain in right bp leg; Hypomagnesemia; Hypokalemia. Condition is Stable. Discharge Instructions: Hypomagnesemia, Varicose Veins, Hypokalemia. Forms are Medication Reconciliation Form, Thank You Letter, Antibiotic Education, Prescription Opioid Use. Follow up: Emergency Department; When: As needed; Reason: Worsening of condition. Follow up: [facility]; When: 2 - 3 days; Reason: Recheck today's complaints, Continuance of care, Re-evaluation by your physician. kb
--- NOTE | 2018-07-09 16:52 | ER ---
Nurse's Notes [facility] Name: Teri Hinkle Age: 58 yrs Sex: Female : 1960 Arrival Date: 07/09/2018 Time: 13:44 Bed 6 Private MD: Michel Carter H Diagnosis: Pain in left leg;Pain in right leg;Hypomagnesemia;Hypokalemia Presentation: 07/09 14:14 Presenting complaint: Patient states: Robby leg pain and swelling x 1 year, worsening ph over the past week, reports hx of restless leg syndrome and CHF. Transition of care: patient was not received from another setting of care. Onset of symptoms was July 09, 2018. Risk Assessment: Do you want to hurt yourself or someone else? Patient reports no desire to harm self or others. Initial Sepsis Screen: Does the patient meet any 2 criteria? No. Patient's initial sepsis screen is negative. Care prior to arrival: None. 14:14 Method Of Arrival: Ambulatory ph 14:18 Acuity: PRISCILA 3 ph 17:38 Initial Sepsis Screen: Does the patient have a suspected source of infection? No. bp Patient's initial sepsis screen is negative. Triage Assessment: 15:46 General: Appears distressed, comfortable, Behavior is cooperative, appropriate for age, bp anxious. Historical: - Allergies: 14:17 PENICILLINS; ph - Home Meds: 17:38 Celexa 20 mg Oral tab 1 tab once daily [Active]; clopidogrel 75 mg Oral tab 1 tab once bp daily [Active]; ibuprofen 600 mg Oral tab as needed [Active]; nortriptyline 50 mg Oral cap 2 caps once daily [Active]; - PMHx: 14:17 CHF; COPD; Depression; Hypertension; Migraines; ph - PSHx: 14:17 ; Cholecystectomy; ph - Immunization history:: Adult Immunizations up to date. - Social history:: Smoking status: Patient/guardian denies using tobacco. - Ebola Screening: : Patient negative for fever greater than or equal to 101.5 degrees Fahrenheit, and additional compatible Ebola Virus Disease symptoms Patient denies exposure to infectious person Patient denies travel to an Ebola-affected area in the 21 days before illness onset No symptoms or risks identified at this time. Screenin:57 Abuse screen: Denies threats or abuse. Denies injuries from another. Nutritional bp screening: No deficits noted. Tuberculosis screening: No symptoms or risk factors identified. Fall Risk None identified. Assessment: 14:00 General: Appears in no apparent distress. comfortable, Behavior is cooperative, bp appropriate for age, anxious, restless. Pain: Complains of pain in right leg and left leg. Neuro: Level of Consciousness is awake, alert, obeys commands, Oriented to person, place, time, situation, Appropriate for age. Cardiovascular: Rhythm is regular. Respiratory: Airway is patent Respiratory effort is even, unlabored, Respiratory pattern is regular, symmetrical. GI: No signs and/or symptoms were reported involving the gastrointestinal system. : No signs and/or symptoms were reported regarding the genitourinary system. EENT: No deficits noted. Derm: No deficits noted. Musculoskeletal: Circulation, motion, and sensation intact. Range of motion: intact in all extremities. 16:00 Reassessment: ALL CURRENT ORDERS COMPLETED, DISPO PENDING. bp 17:36 Reassessment: PT D/C HOME VIA W/C WITH FAMILY, DX WITH HYPOMAGNESEMIA AND HYPOKALEMIA. bp Vital Signs: 14:17 BP 131 / 110; Pulse 110; Resp 22; Temp 98.3; Pulse Ox 97% on R/A; Weight 67.13 kg (R); ph 15:51 BP 112 / 91; Pulse 100; Resp 18; Pulse Ox 97% ; bp ED Course: 13:44 Patient arrived in ED. rg4 13:44 Michel Carter DO is Private Physician. rg4 14:18 Triage completed. ph 14:18 Arm band placed on. ph 14:20 Carlos Eduardo Allen, RICHARD is Primary Nurse. bp 14:22 Stacey Hampton FNP-C is PHCP. kb 14:22 Noemi Rodriguez MD is Attending Physician. kb 14:44 XRAY Chest (1 view) In Process Unspecified. EDMS 14:46 US Extremity Venous W Compression Robby In Process Unspecified. EDMS 14:54 Inserted saline lock: 20 gauge in right antecubital area, using aseptic technique. bp Blood collected. 14:57 Patient has correct armband on for positive identification. Placed in gown. Bed in low bp position. Call light in reach. Side rails up X2. 15:04 EKG done, by electrical/instrument technician. reviewed by Stacey PARK. sm3 15:29 Notified Nurse Practitioner and/or Physician Commercial Light Fixture Assembler of a critical lab result(s), K hb 2.9. 16:52 CarterMichel keithDO is Referral Physician. kb 17:37 No provider procedures requiring assistance completed. IV discontinued, intact, bp bleeding controlled, No redness/swelling at site. Pressure dressing applied. Administered Medications: 15:45 Drug: Magnesium Sulfate 2 grams Route: IVPB; Infused Over: 2 hrs; Site: right bp antecubital; 16:15 Follow up: IV Status: Completed infusion; IV Intake: 100ml bp 16:05 Drug: Potassium Chloride 40 mEq Route: PO; bp 17:34 Follow up: Response: No adverse reaction bp 17:10 Drug: Potassium Chloride 40 mEq Route: PO; bp 17:34 Follow up: Response: No adverse reaction bp Intake: 16:15 IV: 100ml; Total: 100ml. bp Outcome: 16:52 Discharge ordered by MD. kb 17:36 Discharged to home via wheelchair, with family. bp 17:36 Condition: stable 17:36 Discharge instructions given to patient, Instructed on discharge instructions, follow up and referral plans. Demonstrated understanding of instructions, follow-up care. 17:50 Patient left the ED. bp Signatures: Dispatcher [employer] EDMS Stacey Hampton, VIVIAN WILSON-Shari Cagle RN RN Juana Kahn RN Elissa Izquierdo 4 Carlos Eduardo Allen RN RN bp Montes, Shakira 3
[2018-07-09] MEDS ORDERED: HYDROCODONE/APAP 10/325 TAB ONE (17:38)
[2018-07-09 18:31] VITALS: TEMP 98.3; O2SAT 97
[2018-07-09 18:32] VITALS: BP 112/91
== END 2018-07-09 17:50 | disposition home or self-care (01) ==
LOC: ER 13:40
DX: M79.605 Pain in left leg (principal); M79.604 Pain in right leg; E83.42 Hypomagnesemia; E87.6 Hypokalemia; I11.0 Hypertensive heart disease with heart failure; I50.9 Heart failure, unspecified; J44.9 Chronic obstructive pulmonary disease, unspecified; F32.9 Major depressive disorder, single episode, unspecified; Z79.899 Other long term (current) drug therapy
CPT/HCPCS: 36415; 71045; 80048; 83735; 83880; 84484; 85025; 85610; 93005; 93970; 96365; 99284; J3475

== ENCOUNTER 2018-08-12 21:35 | Observation (INO) | payer SELFPAY ==
--- OUTSIDE RECORDS SUMMARY | 2018-08-12 21:37 | XMS REPORT ---
:1960 [facility] Address [address] [place] [address] Care Team Providers Name Role Phone AMANDA [...] or Equal to 0.3 ng/mL Strongly suggests CT Patient not in room - return [id number] 19:13:00 Test Item Value Reference Range Comments Chemistry (test 0.5 ng/mL 0-6.6 code=CKMBM-T) Chemistry (test Less than 0.010 < 0.028 code=TROPI-T) ng/mL Reference Range 0.00 - 0.028 ng/mL Negative 0.029 - 0.29 ng/mL Indeterminate Greater or Equal to 0.3 ng/mL Strongly suggests CT Chemistry - BNP, HgbA1c, [id number] 19:12:00 Test Item Value Reference Range Comments Chemistry - BNP, HgbA1c, PTHi (test code=BNP) 238.9 pg/mL 0-100 [id number] 19:07:00 Test Item Value Reference Range Comments [...] 70-105 Chemistry (test code=CA) 8.8 mg/dL 7.8-10.44 [id number] 18:46:00 Test Item Value Reference Range Comments [...]
[2018-08-12] MEDS ORDERED: METHYLPREDNISOLONE 125 MG INJ ONE (22:06)
[2018-08-12] MEDS ORDERED: LEVALBUTEROL 1.25 MG/3 ML NEB ONE (22:07)
[2018-08-12] MEDS ORDERED: MAGNESIUM SULFATE 1 gm IVPB 1 GM/100 ML BAG IV ONE (22:07)
[2018-08-12 22:29] LABS: Absolute Lymphocytes (CBC) 1.9 K/uL (0.7-4.9); Absolute Monocytes 0.6 K/uL (0.1-1.3); Absolute Neutrophil 4.4 K/uL (1.8-8.0); Basophils % 0.7 % (0-1.3); Hematocrit 34.9 % (36.0-45.0); Lymphocytes % 27.3 % (15.3-44.8); MPV 8.1 fL (7.6-11.3); Monocytes % 9.1 % (3.3-12.3); RBC Red Blood Cell Count 3.84 M/uL (3.86-4.86)
[2018-08-12 22:46] LABS: BUN Blood Urea Nitrogen 10 mg/dL (7-18); Bicarbonate 30 mmol/L (21-32); Glucose Level 93 mg/dL (74-106); NT PRO-BNP 624 pg/mL (<125); Potassium 3.4 mmol/L (3.5-5.1); Sodium Level 146 mmol/L (136-145); Troponin (Emerg Dept Use Only) < 0.02 ng/mL (0.0-0.045)
[2018-08-12] MEDS ORDERED: IBUPROFEN 200 MG TAB PO ONE (23:29)
[2018-08-12] MEDS ORDERED: IBUPROFEN 400 MG TAB ONE (23:29)
--- NOTE | 2018-08-12 23:33 | ER ---
Nurse's Notes [facility] Name: Teri Hinkle Age: 58 yrs Sex: Female : 1960 Arrival Date: 08/12/2018 Time: 21:38 Bed 5 Private MD: Diagnosis: Chronic obstructive pulmonary disease with (acute) exacerbation;Hypoxemia Presentation: 08/12 21:42 Presenting complaint: EMS states: Shortness of breath x 2 days, worse the last couple lp1 hours after being around people smoking; States unable to have home O2 and home meds related to no insurance; O2 at 90% on RA on arrival of EMS, improved to 99% on RA after breathing tx; Hx of COPD. Transition of care: patient was not received from another setting of care. Onset of symptoms was August 12, 2018. Risk Assessment: Do you want to hurt yourself or someone else? Patient reports no desire to harm self or others. Initial Sepsis Screen: Does the patient meet any 2 criteria? No. Patient's initial sepsis screen is negative. Does the patient have a suspected source of infection? No. Patient's initial sepsis screen is negative. Care prior to arrival: Medication(s) given: Albuterol Neb x 1, Atrovent Neb x 1, Oxygen administered. via nasal cannula. 21:42 Method Of Arrival: EMS: [facility] lp1 21:42 Acuity: PRISCILA 3 lp1 Historical: - Allergies: 21:48 PENICILLINS; lp1 - Home Meds: 21:48 nortriptyline 50 mg Oral cap 2 caps once daily [Active]; Trazodone Oral [Active]; lp1 - PMHx: 21:48 CHF; COPD; Depression; Hypertension; Migraines; lp1 - PSHx: 21:48 Cholecystectomy; ; lp1 - Immunization history:: Adult Immunizations up to date, Flu vaccine is up to date. - Social history:: Smoking status: Patient uses tobacco products, smokes one-half pack cigarettes per day. - Ebola Screening: : No symptoms or risks identified at this time. - Family history:: not pertinent. - Hospitalizations: : No recent hospitalization is reported. Screenin:48 Abuse screen: Denies threats or abuse. Denies injuries from another. Nutritional lp1 screening: No deficits noted. Tuberculosis screening: No symptoms or risk factors identified. Fall Risk None identified. Assessment: 21:45 General: Appears uncomfortable, Behavior is calm, cooperative. Pain: Complains of pain ed1 in forehead Pain does not radiate. Pain currently is 8 out of 10 on a pain scale. Quality of pain is described as throbbing, Pain began 1 day ago. Is continuous. Neuro: Level of Consciousness is awake, alert, obeys commands, Oriented to person, place, time, situation. Cardiovascular: Denies chest pain, Heart tones S1 S2 present. Respiratory: Reports shortness of breath at rest Airway is patent Respiratory effort is labored, Respiratory pattern is regular, symmetrical, Breath sounds are coarse bilaterally. the patient has moderate shortness of breath. GI: Abdomen is non-distended, Bowel sounds present X 4 quads. Abd is soft and non tender X 4 quads. : No signs and/or symptoms were reported regarding the genitourinary system. EENT: Oral mucosa is moist. Derm: Skin is intact, is healthy with good turgor, Skin is dry, Skin is normal, Skin temperature is warm. Musculoskeletal: Circulation, motion, and sensation intact. 22:50 Reassessment: Patient appears in no apparent distress at this time. Patient and/or ed1 family updated on plan of care and expected duration. Pain level reassessed. Patient is alert, oriented x 3, equal unlabored respirations, skin warm/dry/pink. Respiratory: Airway is patent Respiratory effort is even, unlabored, Respiratory pattern is regular, symmetrical. 08/13 00:34 Reassessment: Patient appears in no apparent distress at this time. No changes from ed1 previously documented assessment. Patient and/or family updated on plan of care and expected duration. Pain level reassessed. Patient is alert, oriented x 3, equal unlabored respirations, skin warm/dry/pink. Patient states feeling better. Patient states symptoms have improved. Vital Signs: 08/12 21:44 BP 116 / 88; Pulse 103; Resp 20; Temp 98.3(O); Pulse Ox 92% on R/A; Weight 61.23 kg; lp1 Height 5 ft. 2 in. (157.48 cm); Pain 9/10; 21:44 Pulse Ox 97% on 2 lpm NC; lp1 22:50 BP 122 / 77; Pulse 104; Resp 18; Pulse Ox 97% on 2 lpm NC; Pain 8/10; ed1 08/13 00:15 Pain 5/10; ed1 00:34 BP 113 / 60; Pulse 105; Resp 20; Pulse Ox 96% on 2 lpm NC; Pain 5/10; ed1 08/12 21:44 Body Mass Index 24.69 (61.23 kg, 157.48 cm) lp1 ED Course: 08/12 21:38 Patient arrived in ED. rn 21:38 Cornell Sebastian MD is Attending Physician. rn 21:38 Smita Lopez RN is Primary Nurse. ed1 21:44 Triage completed. lp1 21:44 Arm band placed on right wrist. lp1 21:48 Patient has correct armband on for positive identification. Placed in gown. Bed in low lp1 position. Call light in reach. Side rails up X2. lunchroom monitor on. Pulse ox on. NIBP on. 21:55 Missed attempt(s): 20 gauge in right antecubital area. Bleeding controlled, band aid ed1 applied, catheter tip intact. 22:21 Inserted saline lock: 20 gauge in right antecubital area, using aseptic technique. ed1 Blood collected. 22:21 Initial lab(s) drawn, by ED staff, sent to lab. First set of blood cultures drawn by ED ed1 staff. 22:30 XRAY CXR (1 view) In Process Unspecified. EDMS 23:06 EKG done, by ED staff, reviewed by Cornell Sebastian MD. ag4 23:32 Noemi Ji MD is Hospitalizing Provider. rn 08/13 00:35 Awaiting bed assignment. ed1 01:02 No provider procedures requiring assistance completed. Patient admitted, IV remains in ed1 place. intact, No redness/swelling at site. Administered Medications: 08/12 22:00 Drug: Xopenex (3) 1.25 mg Route: Inhalation; ed1 22:38 Follow up: Response: No adverse reaction; Marked relief of symptoms ed1 22:22 Drug: SOLU-Medrol 125 mg Route: IVP; Site: right antecubital; lp1 22:38 Follow up: Response: No adverse reaction ed1 22:22 Drug: Magnesium Sulfate 1 grams Route: IVPB; Infused Over: 1 hrs; Site: right lp1 antecubital; 23:25 Follow up: IV Status: Completed infusion ed1 23:32 Drug: Motrin 600 mg Route: PO; ed1 08/13 00:15 Follow up: Pain 5/10 Adult; Response: No adverse reaction; Pain is decreased ed1 Outcome: 08/12 23:32 Decision to Hospitalize by Provider. richard 08/13 01:02 Admitted to Med/surg accompanied by tech, via wheelchair, room 213, with oxygen, with ed1 chart, Report called to RICHARD Foreman Condition: stable Discharge instructions given to patient, Instructed on the need for admit, Demonstrated understanding of instructions. 01:03 Patient left the ED. ed1 Signatures: Dispatcher [employer] EDMS Cornell Sebastian MD MD rn Riggs, Erika, RN RN ed1 Nayeli Rg RN RN lp1 Dave Rubio ag4 Corrections: (The following items were deleted from the chart) 08/12 21:44 21:42 Care prior to arrival: None. lp1 lp1
--- NOTE | 2018-08-12 23:33 | EDPHYS ---
Physician Documentation [facility] Name: Teri Hinkle Age: 58 yrs Sex: Female : 1960 Arrival Date: 08/12/2018 Time: 21:38 Bed 5 Private MD: ED Physician Cornell Sebastian HPI: 08/12 23:25 This 58 yrs old Female presents to ER via EMS with complaints of Shortness Of rn Breath. 23:25 The patient has shortness of breath with light activity. Onset: The symptoms/episode rn began/occurred 4 day(s) ago. Duration: The symptoms are continuous. The patient's shortness of breath is aggravated by light activity, talking, walking. Severity of symptoms: At their worst the symptoms were moderate in the emergency department the symptoms have improved. The patient has experienced similar episodes in the past. The patient has not recently seen a physician. Reports sob with exertion for 3-4 days, does not have home oxygen, + worse today, worse with exertion, afebrile, + cough and congestion.. 23:25 EMS reports O2 90%. . rn Historical: - Allergies: 21:48 PENICILLINS; lp1 - Home Meds: 21:48 nortriptyline 50 mg Oral cap 2 caps once daily [Active]; Trazodone Oral [Active]; lp1 - PMHx: 21:48 CHF; COPD; Depression; Hypertension; Migraines; lp1 - PSHx: 21:48 Cholecystectomy; ; lp1 - Immunization history:: Adult Immunizations up to date, Flu vaccine is up to date. - Social history:: Smoking status: Patient uses tobacco products, smokes one-half pack cigarettes per day. - Ebola Screening: : No symptoms or risks identified at this time. - Family history:: not pertinent. - Hospitalizations: : No recent hospitalization is reported. ROS: 23:25 Constitutional: Negative for fever, chills, and weight loss, Eyes: Negative for injury, rn pain, redness, and discharge, ENT: + nasal congestion Cardiovascular: Negative for chest pain, palpitations, and edema, Respiratory: + cough and sob. Abdomen/GI: Negative for abdominal pain, nausea, vomiting, diarrhea, and constipation, MS/Extremity: Negative for injury and deformity, Skin: Negative for injury, rash, and discoloration, Neuro: Negative for headache, weakness, numbness, tingling, and seizure. Exam: 23:25 Constitutional: This is a well developed, well nourished patient who is awake, alert, rn + tachypnea Head/Face: Normocephalic, atraumatic. Eyes: Pupils equal round and reactive to light, extra-ocular motions intact. Lids and lashes normal. Conjunctiva and sclera are non-icteric and not injected. Cornea within normal limits. Periorbital areas with no swelling, redness, or edema. ENT: dry MM, no stridor Neck: Trachea midline, no thyromegaly or masses palpated, and no cervical lymphadenopathy. Supple, full range of motion without nuchal rigidity, or vertebral point tenderness. No Meningismus. Cardiovascular: tachycardic, regular, no murmur Respiratory: + mild tachypnea, speaking 5 word sentences, + diminished bilateral breath sounds Abdomen/GI: soft, non-tender MS/ Extremity: Pulses equal, no cyanosis. Neurovascular intact. Full, normal range of motion. Equal circumference. Neuro: Awake and alert, GCS 15, oriented to person, place, time, and situation. Cranial nerves II-XII grossly intact. Motor strength 5/5 in all extremities. Sensory grossly intact. Vital Signs: 21:44 BP 116 / 88; Pulse 103; Resp 20; Temp 98.3(O); Pulse Ox 92% on R/A; Weight 61.23 kg; lp1 Height 5 ft. 2 in. (157.48 cm); Pain 9/10; 21:44 Pulse Ox 97% on 2 lpm NC; lp1 22:50 BP 122 / 77; Pulse 104; Resp 18; Pulse Ox 97% on 2 lpm NC; Pain 8/10; ed1 08/13 00:15 Pain 5/10; ed1 00:34 BP 113 / 60; Pulse 105; Resp 20; Pulse Ox 96% on 2 lpm NC; Pain 5/10; ed1 08/12 21:44 Body Mass Index 24.69 (61.23 kg, 157.48 cm) lp1 MDM: 08/12 21:38 Patient medically screened. rn 23:25 Differential diagnosis: Chronic Obstructive Pulmonary Disease pneumonia, Pneumothorax rn pulmonary edema. Data reviewed: vital signs, nurses notes, lab test result(s), EKG, radiologic studies, plain films, and as a result, I will admit patient. Counseling: I had a detailed discussion with the patient and/or guardian regarding: the historical points, exam findings, and any diagnostic results supporting the discharge/admit diagnosis, lab results, radiology results, the need for further work-up and treatment in the hospital. Response to treatment: the patient's symptoms have markedly improved after treatment, and as a result, I will admit patient. Admission orders: after a detailed discussion of the patient's condition and case, the admit orders are written by me. ED course: Still mild dyspnea, no meds at home, no oxygen at home, will admit for COPD exacerbation, dyspnea, and hypoxemia.. 08/12 21:41 Order name: Blood Culture Adult (2) rn 08/12 21:41 Order name: BMP; Complete Time: 22:48 rn 08/12 21:41 Order name: CBC with Diff; Complete Time: 22:38 rn 08/12 21:41 Order name: NT PRO-BNP; Complete Time: 22:48 rn 08/12 21:41 Order name: Troponin (emerg Dept Use Only); Complete Time: 22:48 rn 08/12 22:48 Order name: Flu; Complete Time: 23:33 rn 08/12 21:41 Order name: XRAY CXR (1 view) rn 08/13 00:39 Order name: CBC with Automated Diff EDKY 08/13 00:39 Order name: CBC with Automated Diff EDKY 08/13 00:39 Order name: Comprehensive Metabolic Panel EDKY 08/13 00:39 Order name: Comprehensive Metabolic Panel EDKY 08/12 21:41 Order name: EKG; Complete Time: 21:42 rn 08/12 21:41 Order name: Cardiac monitoring; Complete Time: 22:01 rn 08/12 21:41 Order name: EKG - Nurse/Tech; Complete Time: 22:38 rn 08/12 21:41 Order name: IV Saline Lock; Complete Time: 22:23 rn 08/12 21:41 Order name: Labs collected and sent; Complete Time: 22:23 rn 08/12 21:41 Order name: O2 Per Protocol; Complete Time: 22:01 rn 08/12 21:41 Order name: O2 Sat Monitoring; Complete Time: 22:02 rn 08/13 00:39 Order name: CONS Pharmacy Consult EDKY 08/13 00:39 Order name: [facility] Administered Medications: 22:00 Drug: Xopenex (3) 1.25 mg Route: Inhalation; ed1 22:38 Follow up: Response: No adverse reaction; Marked relief of symptoms ed1 22:22 Drug: SOLU-Medrol 125 mg Route: IVP; Site: right antecubital; lp1 22:38 Follow up: Response: No adverse reaction ed1 :22 Drug: Magnesium Sulfate 1 grams Route: IVPB; Infused Over: 1 hrs; Site: right lp1 antecubital; 23:25 Follow up: IV Status: Completed infusion ed1 23:32 Drug: Motrin 600 mg Route: PO; ed1 08/13 00:15 Follow up: Pain 5/10 Adult; Response: No adverse reaction; Pain is decreased ed1 Disposition: 08/12/18 23:32 Hospitalization ordered by Noemi Ji for Inpatient Admission. Preliminary diagnosis are Chronic obstructive pulmonary disease with (acute) exacerbation, Hypoxemia. - Bed requested for Telemetry/MedSurg (Inpatient). - Status is Inpatient Admission. ed1 - Condition is Stable. - Problem is new. - Symptoms have improved. UTI on Admission? No Signatures: Dispatcher [employer] [facility] Cornell Sebastian MD MD rn Riggs, Erika, RN RN ed1 Nayeli Rg RN RN lp1 Melva Sims RN RN cg Corrections: (The following items were deleted from the chart) 00:35 08/12 23:32 Hospitalization Ordered by Noemi Ji MD for Inpatient Admission. cg Preliminary diagnosis is Chronic obstructive pulmonary disease with (acute) exacerbation; Hypoxemia. Bed requested for Telemetry/MedSurg (Inpatient). Status is Inpatient Admission. Condition is Stable. Problem is new. Symptoms have improved. UTI on Admission? No. rn 08/13 01:03 00:35 08/12/2018 23:32 Hospitalization Ordered by Noemi Ji MD for Inpatient ed1 Admission. Preliminary diagnosis is Chronic obstructive pulmonary disease with (acute) exacerbation; Hypoxemia. Bed requested for Telemetry/MedSurg (Inpatient). Status is Inpatient Admission. Condition is Stable. Problem is new. Symptoms have improved. UTI on Admission? No. cg
[2018-08-13] MEDS ORDERED: MORPHINE 2 MG/ML SYR IV PRN (00:19)
[2018-08-13] MEDS ORDERED: ONDANSETRON 4 MG/2 ML VIAL IV PRN (00:19)
[2018-08-13] MEDS ORDERED: NA CHLORIDE 0.9% 1,000 ML IV SCH (01:00)
[2018-08-13] MEDS: ACETAMINOPHEN 500 MG TAB PO PRN ×3 (01:28→21:07)
[2018-08-13 01:31] VITALS: BMI 27.6
[2018-08-13] MEDS: IPRATROPIUM BROM 0.5MG/2.5ML NEB SCH ×4 (02:05→20:30)
[2018-08-13] MEDS: ALBUTEROL 2.5 MG/3 ML NEB SOL NEB SCH ×2 (02:05→08:12)
--- NOTE | 2018-08-13 05:49 | EKG ---
Test Date: 2018-08-12 Test Time: 22:33:50 English As A Second Language Instructor: [email or web address] MEASUREMENT RESULTS: Intervals: Rate: 100 ME: 156 QRSD: 98 QT: 372 QTc: 479 [place]: P: 69 ME: 156 QRS: 60 T: 63 INTERPRETIVE STATEMENTS: Normal sinus rhythm Possible Left atrial enlargement Borderline ECG Compared to ECG 07/09/2018 14:45:32 No significant changes Electronically Signed On 08-13-18 05:48:44 [employer] by Kyle Romano
[2018-08-13] MEDS ORDERED: METHYLPREDNISOLONE 125 MG INJ IV SCH (06:00)
[2018-08-13] MEDS ORDERED: HYDROCODONE/APAP 10/325 TAB PO ONE (06:16)
[2018-08-13] MEDS ORDERED: NACHLORIDE 0.45% 1,000 ML IV SCH (07:00)
[2018-08-13] MEDS ORDERED: MORPHINE 4 MG/ML SYR IV PRN (07:05)
[2018-08-13] MEDS: TRAZODONE 50 MG TABLET PO SCH ×3 (08:27→21:06)
--- NOTE | 2018-08-13 08:37 | RAD REPORT ---
EXAM DESCRIPTION: Silvina Single View08/12/2018 10:30 pm CLINICAL HISTORY: Shortness of breath June COMPARISON: 2017 FINDINGS: The lungs appear clear of acute infiltrate. The heart is normal size IMPRESSION: No acute abnormalities displayed
[2018-08-13] MEDS ORDERED: CEFTRIAXONE/SWI 1gm 1 GM/10 ML SYR IV SCH (09:00)
[2018-08-13] MEDS ORDERED: FUROSEMIDE 40 MG TABLET PO SCH (09:00)
[2018-08-13] MEDS ORDERED: CEFTRIAXONE 1 GM/NS 50 ML 1 GM/50 ML BAG IV SCH (09:00)
--- NOTE | 2018-08-13 13:38 | P.CNS ---
Date of Consult: 08/13/18 Reason for Consult: Shortness of breath Chief Complaint: Shortness of breath History of Present Illness: Patient is 58 years of age with a history of COPD and problem bowel about 2 weeks ago with postnasal drainage took some Zyrtec and she became acutely short of breath ended up here in the hospital active smoker 1/2 packs a week as not use any bronchodilators patient cannot afford Allergies Penicillins Adverse Reaction (Mild, Verified 08/13/18 01:31) Itching/Hives/Rash Home Medications: Furosemide [Lasix] 40 mg PO BID 08/13/18 Nortriptyline HCl [Pamelor] 75 mg PO BEDTIME 08/13/18 Trazodone HCl 75 mg PO TID 08/13/18 - Past Medical/Surgical History Diabetic: No -: COPD -: CHF -: Depression -: HTN -: Migraines -: Tarditive Dyskenisia -: Cholecystectomy -: - Family History Sister Notes: Depression - Social History Smoking Status: Current every day smoker Alcohol use: No CD- Drugs: No Caffeine use: Yes Place of Residence: Home Review of Systems 10-point ROS is otherwise unremarkable General: Weakness Respiratory: Cough, Shortness of Breath Physical Examination Temp Pulse Resp BP Pulse Ox 98.6 F 102 H 20 109/56 L 93 08/13/18 04:00 08/13/18 04:00 08/13/18 04:00 08/13/18 04:00 08/13/18 04:00 General: Alert, In no apparent distress, Oriented x3 Neck: Supple Respiratory: Diminished, Rhonchi/gurgles Cardiovascular: No edema, Normal S1 S2 Gastrointestinal: Normal bowel sounds, Soft and benign Integumentary: No rashes, No breakdown Laboratory Data (last 24 hrs) 08/12/18 22:10: WBC 7.1, Hgb 11.2 L, Hct 34.9 L, Plt Count 267 08/12/18 22:10: Sodium 146 H, Potassium 3.4 L, BUN 10, Creatinine 0.51 L, Glucose 93 - Problems (1) COPD exacerbation Onset Date: 06/22/18 Current Visit: No Status: Acute Plan: Patient is 58 years of age with a history of COPD active smoker admitted with increasing shortness of breath I suspect COPD exacerbation she is not coughing up any sputum apart from mild hypernatremia and hypokalemia which I suspect is diuretic-induced chest x-ray is clear mildly anemic patient has normal left ventricular function I suggest stopping Lasix she has had a normal stress test last year treat with steroids bronchodilators consider using spironolactone and p.r.n. the
[2018-08-13] MEDS ORDERED: ALBUTEROL 2.5 MG/3 ML NEB SOL NEB PRN ×2 (13:42→16:00)
[2018-08-13 18:37] LABS: Urine Appearance CLEAR; Urine Bilirubin NEGATIVE (NEG); Urine Blood NEGATIVE (NEG); Urine Color YELLOW; Urine Glucose NEGATIVE (NEG); Urine Protein NEGATIVE (NEG); Urine Urobilinogen 0.2 mg/dL (0.2-1.0)
[2018-08-13 19:06] LABS: Urine Microscopic Reflex NO UMIC
[2018-08-13] MEDS: ARFORMOTEROL TARTRATE 15 MCG/2 ML VIAL.NEB NEB SCH (20:30)
--- NOTE | 2018-08-13 20:40 | P.HP ---
Certification for Inpatient Patient admitted to: Observation With expected LOS: <2 Midnights Patient will require the following post-hospital care: None Practitioner: I am a practitioner with admitting privileges, knowledge of patient current condition, hospital course, and medical plan of care. Services: Services provided to patient in accordance with Admission requirements found in Title 42 Section 412.3 of the Code of Federal Regulations Patient History Date of Service: 08/13/18 Reason for admission: Shortness of breath History of Present Illness: Pt is a 58yo With admitted to the hospital with respiratory distress. Patient was ruled short of breath and can breathe. She came to the ER for further evaluation. Patient was not moving any air. We gave her breathing treatments along with steroids and antibiotics. She started to breathe better. I will go ahead and watch her on the medical floor and admitted to the hospital. If her symptoms get worse she will need to go to the intensive care unit. Allergies Penicillins Adverse Reaction (Mild, Verified 08/13/18 01:31) Itching/Hives/Rash Home Medications: Furosemide [Lasix] 40 mg PO BID 08/13/18 Nortriptyline HCl [Pamelor] 75 mg PO BEDTIME 08/13/18 Trazodone HCl 75 mg PO TID 08/13/18 - Past Medical/Surgical History Has patient received pneumonia vaccine in the past: Yes Diabetic: No -: COPD -: CHF -: Depression -: HTN -: Migraines -: Tarditive Dyskenisia -: Cholecystectomy -: - Family History Sister Notes: Depression - Social History Alcohol use: No CD- Drugs: No Caffeine use: Yes Place of Residence: Home Review of Systems 10-point ROS is otherwise unremarkable Physical Examination - Vital Signs Temperature: 98.7 F Blood Pressure: 111/56 Pulse: 98 Respirations: 20 Pulse Ox (%): 90 - Physical Exam General: Alert, In no apparent distress, Oriented x3 HEENT: Atraumatic, PERRLA, Mucous membr. moist/pink, EOMI, Sclerae nonicteric Neck: Supple, 2+ carotid pulse no bruit, No LAD, Without JVD or thyroid abnormality Respiratory: Clear to auscultation bilaterally, Normal air movement Cardiovascular: Regular rate/rhythm, Normal S1 S2, No murmurs Gastrointestinal: Normal bowel sounds, Soft and benign, Non-distended, No tenderness Musculoskeletal: No clubbing, No swelling, No tenderness Integumentary: No rashes Neurological: Normal gait, Normal speech, Normal strength at 5/5 x4 extr, Normal tone, Sensation intact, Cranial nerves 3-12 intact, Normal affect Lymphatics: No axilla or inguinal lymphadenopathy - Studies Laboratory Data (last 24 hrs) 08/12/18 22:10: WBC 7.1, Hgb 11.2 L, Hct 34.9 L, Plt Count 267 08/12/18 22:10: Sodium 146 H, Potassium 3.4 L, BUN 10, Creatinine 0.51 L, Glucose 93 Microbiology Data (last 24 hrs): 08/12/18 23:00 Nasopharnyx Influenza Type A Antigen Screen - Final 08/12/18 23:00 Nasopharnyx Influenza Type B Antigen Screen - Final Assessment & Plan - Problems (Diagnosis) (1) COPD exacerbation Onset Date: 06/22/18 Current Visit: No Status: Acute (2) Hypoxemia Onset Date: 06/22/18 Current Visit: No Status: Acute (3) Shortness of breath Onset Date: 06/22/18 Current Visit: No Status: Acute (4) Status post fall Current Visit: No Status: Acute - Plan -nebs, steroids, and antibiotics -O2 per protocol. -repeat chest x-ray -pulmonary consultation -NS at 70 -Monitor electrolytes closely Discharge Plan: Home Plan to discharge in: Greater than 2 days - Advance Directives Does patient have a Living Will: No Does patient have a Durable POA for Healthcare: No - Code Status/Comfort Care Code Status Assessed: Yes Code Status: Full Code Critical Care: No Time Spent Managing PTS Care (In Minutes): 50
[2018-08-13] MEDS ORDERED: MONTELUKAST 10 MG TAB PO SCH (21:00)
[2018-08-13] MEDS ORDERED: predniSONE 5 MG TAB PO SCH (21:00)
[2018-08-13] MEDS ORDERED: NORTRIPTYLINE HCL 25 MG CAP PO SCH (21:00)
[2018-08-13] MEDS: predniSONE 20 MG TAB PO SCH (21:06)
[2018-08-13] MEDS: POTASSIUM CL SA 10 MEQ TAB PO SCH (21:06)
[2018-08-14] MEDS: IPRATROPIUM BROM 0.5MG/2.5ML NEB SCH ×3 (01:27→13:52)
[2018-08-14 05:30] LABS: Absolute Monocytes 0.6 K/uL (0.1-1.3); Absolute Neutrophil 8.3 K/uL (1.8-8.0); Basophils % 0.1 % (0-1.3); Hematocrit 31.9 % (36.0-45.0); MPV 8.5 fL (7.6-11.3); RBC Red Blood Cell Count 3.56 M/uL (3.86-4.86)
[2018-08-14 05:43] LABS: ALT/SGPT 20 U/L (12-78); AST/SGOT 15 U/L (15-37); Albumin 2.9 g/dL (3.4-5.0); Alkaline Phosphatase 78 U/L (45-117); BUN Blood Urea Nitrogen 16 mg/dL (7-18); Bicarbonate 30 mmol/L (21-32); Bilirubin Total 0.2 mg/dL (0.2-1.0); Glucose Level 124 mg/dL (74-106); Potassium 4.7 mmol/L (3.5-5.1); Protein, Total 6.6 g/dL (6.4-8.2); Sodium Level 144 mmol/L (136-145)
[2018-08-14] MEDS: ARFORMOTEROL TARTRATE 15 MCG/2 ML VIAL.NEB NEB SCH (08:37)
[2018-08-14 09:55] VITALS: O2SAT 92
[2018-08-14] MEDS: TRAZODONE 50 MG TABLET PO SCH ×2 (10:07→14:00)
[2018-08-14] MEDS: POTASSIUM CL SA 10 MEQ TAB PO SCH (10:07)
[2018-08-14] MEDS: predniSONE 20 MG TAB PO SCH (10:08)
[2018-08-14] MEDS ORDERED: DULERA 100/5 (MOMETASONE/FORMOTEROL) INHALER IH SCH (10:45)
[2018-08-14 12:07] VITALS: BP 109/65; TEMP 97.9
[2018-08-14] MEDS: ACETAMINOPHEN 500 MG TAB PO PRN (12:17)
--- NOTE | 2018-08-14 13:40 | P.DS ---
Admission Date: 08/13/18 Discharge Date: 08/14/18 Disposition: ROUTINE DISCHARGE Discharge Condition: GOOD Reason for Admission: Shortness of breath - Problems (1) COPD exacerbation Onset Date: 06/22/18 Current Visit: No Status: Acute Brief History of Present Illness: Pt is a 58yo With admitted to the hospital with respiratory distress. Patient was ruled short of breath and can breathe. She came to the ER for further evaluation. Patient was not moving any air. We gave her breathing treatments along with steroids and antibiotics. She started to breathe better. I will go ahead and watch her on the medical floor and admitted to the hospital. If her symptoms get worse she will need to go to the intensive care unit. Hospital Course: Overall during the hospital stay patient main stable Patient is initially admitted to the hospital for COPD exacerbation. Was kept on duo nebs, steroids, oxygen here in the hospital. Patient is noncompliant with her inhalers at home. Patient continues to smoke 1 pack of cigarettes a day. Patient states that she does not have the money to get her inhalers at home. She does not follow with any pulmonary doctor at home either. Patient improved markedly on duo nebs and steroids. And was asked to follow up with his coater associate upon discharge. When patient was able to be weaned off her oxygen she was discharged home under stable condition was given Dulera inhaler to go home with. Patient was to follow up with pulmonology who will be prescribing her other inhalers along with getting some samples from the office as well. Patient was educated extensively on compliance with medication and inhalers to avoid any future COPD exacerbation. Patient demonstrated understanding and thus was discharged home under stable condition Vital Signs/Physical Exam: Temp Pulse Resp BP Pulse Ox 97.9 F 94 H 16 109/65 92 08/14/18 12:00 08/14/18 12:00 08/14/18 12:00 08/14/18 12:00 08/14/18 12:00 General: Alert, In no apparent distress HEENT: Atraumatic, PERRLA, EOMI Neck: Supple, JVD not distended Respiratory: Clear to auscultation bilaterally, Normal air movement Cardiovascular: Regular rate/rhythm, Normal S1 S2 Gastrointestinal: Normal bowel sounds, No tenderness Musculoskeletal: No tenderness Integumentary: No rashes Neurological: Normal speech, Normal tone, Normal affect Lymphatics: No axilla or inguinal lymphadenopathy Laboratory Data at Discharge: WBC 9.9 K/uL (4.3-10.9) D 08/14/18 04:36 Hgb 10.5 g/dL (12.0-15.0) L 08/14/18 04:36 Hct 31.9 % (36.0-45.0) L 08/14/18 04:36 Plt Count 278 K/uL (152-406) 08/14/18 04:36 Sodium 144 mmol/L (136-145) 08/14/18 04:36 Potassium 4.7 mmol/L (3.5-5.1) 08/14/18 04:36 BUN 16 mg/dL (7-18) 08/14/18 04:36 Creatinine 0.60 mg/dL (0.55-1.3) 08/14/18 04:36 Glucose 124 mg/dL (74-106) H 08/14/18 04:36 Total Bilirubin 0.2 mg/dL (0.2-1.0) 08/14/18 04:36 AST 15 U/L (15-37) 08/14/18 04:36 ALT 20 U/L (12-78) 08/14/18 04:36 Alkaline Phosphatase 78 U/L (45-117) 08/14/18 04:36 Home Medications: Furosemide [Lasix*] 40 mg PO BID 08/13/18 Nortriptyline HCl [Pamelor] 75 mg PO BEDTIME 08/13/18 Trazodone HCl 75 mg PO TID 08/13/18 Mometasone/Formoterol [Dulera 100 Mcg/5 Mcg Inhaler] 2 puff IH BID #1 inhaler Montelukast [Singulair*] 10 mg PO BEDTIME #30 tab 08/14/18 New Medications: Mometasone/Formoterol [Dulera 100 Mcg/5 Mcg Inhaler] 2 puff IH BID #1 inhaler Montelukast [Singulair*] 10 mg PO BEDTIME #30 tab Diet: Regular Activity: Ad brooklynn Followup: Aric Ramirez MD [ACTIVE - CAN ADMIT] - 1 Week Michel Carter DO, DO [ACTIVE - CAN ADMIT] - 1-2 Weeks ()
== END 2018-08-14 18:40 | disposition home or self-care (01) ==
LOC: ER 21:35 → ERHOLD 08-13 00:19 → 2ND 08-13 00:47
PROVIDERS: ADMIT Hospitalist; ATTEND Hospitalist
DX: J44.1 Chronic obstructive pulmonary disease with (acute) exacerbation (principal); R09.02 Hypoxemia; I10 Essential (primary) hypertension; Z91.14 Patient's other noncompliance with medication regimen; F17.210 Nicotine dependence, cigarettes, uncomplicated; Z88.0 Allergy status to penicillin
CPT/HCPCS: 36415; 71045; 80048; 80053; 81003; 83880; 84484; 85025; 87040; 87804; 93005; 94640; 96365; 96375; 99285; G0378; J0696; J2930; J3475; J7030; J7512; J7605; J7606